=== PATIENT | female | born 1955 | race Caucasian/White ===

== ENCOUNTER → 2020-01-07 13:23 | Outpatient (BNVA) | payer MEDICARE, MEDICAID, SELFPAY | PROVIDERS: PCP Nurse Practitioner Family; Visit Provider Family Medicine Adult Medicine | DX: M96.1 Postlaminectomy syndrome, not elsewhere classified (principal); E83.42 Hypomagnesemia; Z79.891 Long term (current) use of opiate analgesic; Z98.1 Arthrodesis status; Q76.1 Klippel-Feil syndrome | CPT/HCPCS: 99214 ==

== ENCOUNTER → 2020-02-18 09:45 | Outpatient (BNVA) | payer MEDICARE, MEDICAID, SELFPAY | PROVIDERS: PCP Nurse Practitioner Family; Referring Provider Nurse Practitioner Family; Visit Provider Family Medicine Adult Medicine | DX: Q76.1 Klippel-Feil syndrome (principal); M96.1 Postlaminectomy syndrome, not elsewhere classified | CPT/HCPCS: 99212 ==

== ENCOUNTER → 2020-03-31 12:47 | Outpatient (BNVA) | payer MEDICARE, MEDICAID, SELFPAY | PROVIDERS: PCP Nurse Practitioner Family; Visit Provider Family Medicine Adult Medicine | DX: Z51.81 Encounter for therapeutic drug level monitoring (principal) | CPT/HCPCS: 99212 ==

== ENCOUNTER → 2020-04-26 12:45 | Outpatient (BNVA) | payer MEDICARE, MEDICAID, SELFPAY | PROVIDERS: PCP Nurse Practitioner Family; Visit Provider Nurse Practitioner Family | DX: M96.1 Postlaminectomy syndrome, not elsewhere classified (principal); Q76.1 Klippel-Feil syndrome | CPT/HCPCS: 99212 ==

== ENCOUNTER → 2020-05-30 12:55 | Outpatient (BNVA) | payer MEDICARE, MEDICAID, SELFPAY | PROVIDERS: PCP Nurse Practitioner Family; Visit Provider Nurse Practitioner Family | DX: M96.1 Postlaminectomy syndrome, not elsewhere classified (principal); Q76.1 Klippel-Feil syndrome | CPT/HCPCS: 99212 ==

== ENCOUNTER → 2020-06-28 10:21 | Outpatient (BNVA) | payer MEDICARE, MEDICAID, SELFPAY | PROVIDERS: PCP Nurse Practitioner Family; Visit Provider Family Medicine Adult Medicine | DX: M96.1 Postlaminectomy syndrome, not elsewhere classified (principal); Q76.1 Klippel-Feil syndrome | CPT/HCPCS: Q3014 ==

== ENCOUNTER → 2020-07-26 10:17 | Outpatient (BNVA) | payer MEDICARE, MEDICAID, SELFPAY | PROVIDERS: PCP Nurse Practitioner Family; Visit Provider Family Medicine Adult Medicine | DX: Q76.1 Klippel-Feil syndrome (principal); M96.1 Postlaminectomy syndrome, not elsewhere classified | CPT/HCPCS: 99212 ==

== ENCOUNTER → 2020-08-22 12:45 | Outpatient (BNVA) | payer MEDICARE, MEDICAID, SELFPAY | PROVIDERS: PCP Nurse Practitioner Family; Visit Provider Nurse Practitioner Family | DX: Z51.81 Encounter for therapeutic drug level monitoring (principal) | CPT/HCPCS: 99211 ==

== ENCOUNTER → 2020-09-20 11:12 | Outpatient (BNVA) | payer MEDICARE, MEDICAID, SELFPAY | PROVIDERS: PCP Nurse Practitioner Family; Visit Provider Family Medicine Adult Medicine | DX: Q76.1 Klippel-Feil syndrome (principal); M96.1 Postlaminectomy syndrome, not elsewhere classified | CPT/HCPCS: 99212 ==

== ENCOUNTER → 2020-10-20 11:04 | Outpatient (BNVA) | payer MEDICARE, MEDICAID, SELFPAY | PROVIDERS: PCP Nurse Practitioner Family; Visit Provider Family Medicine Adult Medicine | DX: Q76.1 Klippel-Feil syndrome (principal); M96.1 Postlaminectomy syndrome, not elsewhere classified | CPT/HCPCS: 99212 ==

== ENCOUNTER → 2020-11-18 14:10 | Outpatient (BNVA) | payer MEDICARE, MEDICAID, SELFPAY | PROVIDERS: PCP Nurse Practitioner Family; Visit Provider Nurse Practitioner Family | DX: M96.1 Postlaminectomy syndrome, not elsewhere classified (principal); Q76.1 Klippel-Feil syndrome; I10 Essential (primary) hypertension; E78.5 Hyperlipidemia, unspecified; E03.9 Hypothyroidism, unspecified; E83.42 Hypomagnesemia; Z88.0 Allergy status to penicillin; Z88.8 Allergy status to other drugs, medicaments and biological substances; Z79.899 Other long term (current) drug therapy | CPT/HCPCS: 99212 ==

== ENCOUNTER → 2020-12-08 12:53 | Outpatient (BNVA) | payer MEDICARE, MEDICAID, SELFPAY | PROVIDERS: PCP Nurse Practitioner Family; Visit Provider Family Medicine Adult Medicine | DX: Z51.81 Encounter for therapeutic drug level monitoring (principal) | CPT/HCPCS: 99211 ==

== ENCOUNTER → 2020-12-28 15:51 | Outpatient (BNVA) | payer MEDICARE, MEDICAID, SELFPAY | PROVIDERS: PCP Nurse Practitioner Family; Visit Provider Anesthesiology | DX: M96.1 Postlaminectomy syndrome, not elsewhere classified (principal); Q76.1 Klippel-Feil syndrome | CPT/HCPCS: 99212 ==

== ENCOUNTER → 2021-01-05 13:52 | Outpatient (BNVA) | payer MEDICARE, MEDICAID, SELFPAY | PROVIDERS: PCP Nurse Practitioner Family; Visit Provider Family Medicine Adult Medicine | DX: Q76.1 Klippel-Feil syndrome (principal); G89.4 Chronic pain syndrome; M96.1 Postlaminectomy syndrome, not elsewhere classified; I10 Essential (primary) hypertension; E78.5 Hyperlipidemia, unspecified; E03.9 Hypothyroidism, unspecified; E55.9 Vitamin D deficiency, unspecified; E66.9 Obesity, unspecified; Z68.24 Body mass index [BMI] 24.0-24.9, adult; Z96.642 Presence of left artificial hip joint; Z96.652 Presence of left artificial knee joint; Z88.0 Allergy status to penicillin; Z88.6 Allergy status to analgesic agent; Z88.1 Allergy status to other antibiotic agents; Z88.8 Allergy status to other drugs, medicaments and biological substances; Z79.891 Long term (current) use of opiate analgesic; Z79.899 Other long term (current) drug therapy | CPT/HCPCS: 99212 ==

== ENCOUNTER → 2021-02-02 11:23 | Outpatient (BNVA) | payer MEDICARE, MEDICAID, SELFPAY | PROVIDERS: PCP Nurse Practitioner Family; Visit Provider Family Medicine Adult Medicine | DX: Q76.1 Klippel-Feil syndrome (principal); M96.1 Postlaminectomy syndrome, not elsewhere classified; I10 Essential (primary) hypertension; E66.3 Overweight; F41.1 Generalized anxiety disorder; F32.A Depression, unspecified; Z88.0 Allergy status to penicillin; Z88.8 Allergy status to other drugs, medicaments and biological substances; Z79.899 Other long term (current) drug therapy | CPT/HCPCS: 99212 ==

== ENCOUNTER → 2021-03-07 11:18 | Outpatient (BNVA) | payer MEDICARE, MEDICAID, SELFPAY | PROVIDERS: PCP Nurse Practitioner Family; Visit Provider Family Medicine Adult Medicine | DX: Z51.81 Encounter for therapeutic drug level monitoring (principal); F11.20 Opioid dependence, uncomplicated | CPT/HCPCS: 99211 ==

== ENCOUNTER 2021-04-03 08:13 | Outpatient (REF) | payer MEDICARE, MEDICAID, SELFPAY | END 2021-04-03 08:14 | disposition home or self-care (01) | LOC: HO.LAB 08:13 | PROVIDERS: PCP Nurse Practitioner Family; Visit Provider Nurse Practitioner Family | DX: Q76.1 Klippel-Feil syndrome (principal); M96.1 Postlaminectomy syndrome, not elsewhere classified; G89.4 Chronic pain syndrome | CPT/HCPCS: 99212 ==

== ENCOUNTER 2021-04-25 06:09 | Outpatient (REF) | payer MEDICARE, MEDICAID, SELFPAY ==
--- NOTE | ~2021-04-25 | FL_ITS ---
EXAMINATION: XR FLUOROSCOPY WITH IMAGES CLINICAL INFORMATION: Post laminectomy syndrome. COMPARISON: None. TECHNIQUE: Fluoroscopy performed by Zaina Mcdaniel NP. Fluoroscopy time: 0.4 minutes DAP: 2.5 Gy-cm2 Images: 2 FINDINGS: Images demonstrate right-sided needle placement over the spinal canal at the L1-L2 level. FL/FL guidance in treatment room IMPRESSION: Fluoroscopy guidance for pain management procedure.
== END 2021-04-25 06:10 | disposition home or self-care (01) ==
LOC: HO.RADIR 06:09
PROVIDERS: Visit Provider Anesthesiology
DX: M96.1 Postlaminectomy syndrome, not elsewhere classified (principal); G89.4 Chronic pain syndrome
CPT/HCPCS: 62323; J1170; Q9967

== ENCOUNTER → 2021-05-02 11:15 | Outpatient (BNVA) | payer MEDICARE, MEDICAID, SELFPAY | PROVIDERS: PCP Nurse Practitioner Family; Visit Provider Nurse Practitioner Family | DX: Z51.81 Encounter for therapeutic drug level monitoring (principal); F11.20 Opioid dependence, uncomplicated; M96.1 Postlaminectomy syndrome, not elsewhere classified; Q76.1 Klippel-Feil syndrome; G89.4 Chronic pain syndrome | CPT/HCPCS: 99212 ==

== ENCOUNTER 2021-09-07 11:33 | Day surgery (SDC) | payer MEDICARE, MEDICAID, SELFPAY ==
[2021-08-31 09:00] VITALS: BMI 23.9
--- NOTE | 2021-09-06 10:21 | HO.ANESPROP2 ---
HPI - Anesthesia Eval Consult details Narrative: 65yo F for Intrathecal Drug Delivery Implant *Multiple Med Allergies* Chronic opioids Multiple spinal surgeries PMFSH Active Problems Active Problems: All Active Problems (Updated 12/28/20 @ 17:56 by Israel Garcia MD) Failed back syndrome, cervical (Acute) Chronic pain syndrome (Acute) Cervical fusion syndrome (Acute) Failed back syndrome, lumbar (Acute) Vitamin D deficiency (Acute) Hypomagnesemia (Acute) Hypothyroid (Acute) ADD (attention deficit disorder) (Acute) Generalized anxiety disorder (Acute) Major depression (Acute) Overweight (Acute) HTN (hypertension) (Acute) H/O cervical spinal arthrodesis (Acute) Past Medical History Medical History Cervical vertebral fusion Failed back syndrome of cervical spine Failed back syndrome, thoracic Hyperhidrosis Hyperlipidemia Surgical History Surgical History H/O carpal tunnel repair H/O ovarian cystectomy H/O spinal fusion History of appendectomy History of carpal tunnel release History of cholecystectomy History of left hip replacement History of left knee replacement History of total left hip replacement S/P cervical spinal fusion Status post lumbar spine operative procedure for decompression of spinal cord Social History Social History Household Members Other:: lives with daughter Are you a primary in home caregiver to a significant other at home: No Do you presently have visiting nurse or other home services: No Alcohol intake: never Patient Tobacco Use Status: Never used Tobacco Meds Allergies Allergy/AdvReac Type Severity Reaction Status Date / Time amitriptyline Allergy Severe VIOLENCE Verified 09/20/21 10:42 diazepam [Valium] Allergy Severe SUICIDAL Verified 09/20/21 10:42 lorazepam Allergy Severe suicidal Verified 09/20/21 10:42 Penicillins Allergy Severe hives Verified 09/20/21 10:42 amoxicillin [Augmentin] Allergy Intermediate hives Verified 09/20/21 10:42 clavulanic acid [Augmentin] Allergy Intermediate hives Verified 09/20/21 10:42 meperidine [Demerol] Allergy Intermediate vomiting Verified 09/20/21 10:42 buprenorphine [From [facility]] AdvReac Intermediate hives Verified 09/20/21 10:42 Home Medications Medication Instructions Recorded Confirmed Last Taken Type amlodipine 10 mg tablet 10 mg PO BEDTIME 01/07/20 08/31/21 Unknown History aripiprazole 2 mg tablet 2 mg PO BEDTIME 01/07/20 08/31/21 Unknown History buspirone 30 mg tablet 30 mg PO BEDTIME 01/07/20 08/31/21 Unknown History fluoxetine 20 mg capsule 80 mg PO BEDTIME 01/07/20 08/31/21 Unknown History gabapentin 600 mg tablet 900 mg PO QPM 01/07/20 08/31/21 Unknown History methylphenidate HCl 20 mg tablet 100 mg PO QPM 01/07/20 08/31/21 Unknown History thyroid (pork) 120 mg tablet 120 mg PO QAM 01/07/20 08/31/21 Unknown History clonidine HCl 0.1 mg tablet 1 tab PO Q8H PRN anxiety 08/31/21 08/31/21 Unknown History labetalol 100 mg tablet 1 tab PO BID 08/31/21 08/31/21 09/07/21 History omeprazole 20 mg capsule,delayed 1 cap PO DAILY 08/31/21 08/31/21 Unknown History release Exam Exam Date and Time: September 06, 2021 1021 Height,Weight and Vital Signs: Height 5 ft 2 in Weight 59.421 kg Assessment and Plan Assessment Anesthesia Assessment: Chart Reviewed
[2021-09-07] VITALS (7 sets, daily range): BP systolic 115–161; BP diastolic 78–107; PULSE 80–99; RESP 14–16; TEMP 35.8–37; O2SAT 94–99
--- NOTE | ~2021-09-07 | FL_ITS ---
EXAMINATION: XR FLUOROSCOPY WITH IMAGES CLINICAL INFORMATION: Intrathecal drug delivery implant. COMPARISON: None. TECHNIQUE: FLUOROSCOPY PERFORMED BY: Dr. Israel Garcia. FLUOROSCOPY TIME: 1.0 minutes DAP: 8.74 Gy-cm2 FLUOROSCOPIC IMAGES: 3 FINDINGS: 3 images demonstrate placement of an intrathecal catheter with its tip lying about the superior endplate of T10 FL/FL guidance in OR IMPRESSION: Intraoperative fluoroscopy provided for intrathecal drug delivery implant.
--- NOTE | 2021-09-07 12:23 | P.OP_ITS ---
Operative Note Operative Note Date of Service: 09/07/21 Narrative: After obtaining informed consent and explaining to the patient risks, benefits and alternatives to treat this patient's pain, she was brought up to the operating room where she was positioned supine on the stretcher.? [employer] monitors were applied and general anesthesia was induced with endotracheal intubation using Wallace scope.? After that the patient was transferred to the operating table in the prone positioon.? All pressure points were protected.? The patient received antibiotic Clindamycin 600 mg intravenously 30 minutes before incision. Time-out was performed delineating correct site and side of the procedure, name and date of of the patient, risk of fire, need for antibiotic prophylaxis risk of DVT and need for DVT prophylaxis. ? After that the patient entire back? and left upper buttock were prepped with Chloraprep and draped with full body drape including ioban film. Sterilely drape C-arm was brought over the OR field and square pictures of the L1, L2, L3 verteb victor m were demonstrated on the screen.? severe spondylosis was noted below L3 level. L5-S1 fusion was noted and posterior changes on the L3-L4 and L5 vertebra as were noted on lateral view. This left knee only option to go for intrathecal space at L1-L2 intervertebral space..the entrance point? for the catheter was chosen as the L1-L2 interspace? . Local anesthetic was injected into the skin and in the strict midline fashion 6.5 cm vertical skin incision was made with #10 scalpel. The incision was widened with the Weitlaner retractor and deepened with electrocautery. Thorough hemostasis was obtained using electrocautery. The prevertebral fascia was freed from overlaying tissues. After that 100 mm introducer spinal 16 g needle was incerted under x-ray guidance in the projection of the right L2 pedicle on AP view. The needle advanced under the x- ray guidance with intemittent A-P? and lateral pictures toward the spinal canal. When on the lateral view the needle entered the spinal canal the stylet was removed. However I was not able to detect any since infancy needle hub. Even gentle aspiration from the needle resulted in no CSF. The decision was made to attempt insertion at L2-L3 interval. Needle advancement at this interval was performed again on anterior posterior and lateral views on the right as well as on the left side in the projection of the upper margin of the L3 lamina. Unfortunately despite my best efforts anywhere I would go with my needle it will encounter bony formations. The decision was made to return to L1-L2 interspace and attempt the insertion of the needle at the left side of the lamina. The needle advancement was made under anterior posterior and lateral views. When tip of the needle was firmly resting at the center of the spinal canal on l ateral view stylet was removed and the needle was aspirated. Slightly tinged with blood CSF was slowly coming into the syringe. The decision was made to attempt advancement of the intrathecal catheter into the thoracic intrathecal space. Intrathecal Ascenda catheter was inserted through the needle and advanced under the x-ray guidance toward the T8 T9 intervertebral body interval projection The advancement of the catheter was made in the posterior intrathecal space.. The stylet was removed from the catheter and the flow of CSF fluid straw colored and clear was observed coming from the catheter.? Purse-string suture was applied surrounding? the a needle and it was tied.? After that the needle was withdrawn with care taken to keep the catheter in place.? Anchoring device was dislodged on the catheter and advanced until it met prevertebral fascia.? It was engaged on the body of the catheter.?One anchoring Tycron suture was used to suture left wing of the anchor to prevertebral fascia and 2 anchoring sutures Tycron was used to stitch in the right wing of anchoring device to prevertebral fascia. ?After that the thorough irrigation of the wound was performed and wound was packed with vancomycin soaked 4 x 4. Attention then was concentrated on the patient's rightupper buttock where she wanted to implant the body of the intrathecal pump..Sterilely draped C-arm was brought over the operative field again and position of the patient's ? left iliac crest was demonstrated on the screen.? 2 cm below the projection of the? left iliac crest? to the skin of the local anesthetic bupivacaine 0.75% was injected in the linear horizontal fashion.? After that 10? cm incision was performed in patient's? left upper buttock alongside the injected line. ? Thorough hemostasis was obtained using cautery device.? After that the wound was widened and made 3? cm deep .? The wound was extended medially and laterally as well as caudally and cranially to form the space to accommodate the body of the pump.? Thorough hemostasis was performed.? at 1 point severe bleeding was found in the medial corner of the wound and Surgicel was used to arrest capillary bleeding. with bleeding. The Surgicel was removed from the wound.The wound was irrigated with vancomycin containing normal saline and then tunneling device was used to connect both wounds and dislodged the intrathecal catheter into the side wound.? The catheter was trimmed appropriately after that and sutureless connection device was mounted on the catheter.? After that sutureless connection device was connected to the pump.? Aspiration of the side port of the pump revealed clear flow of CSF.? Two anchoring 1-0 Tycron sutures were applied in most SUPERIOR MEDIAL AND SUPERIOR LATERAL CORNERS OF THE WOUND .? After that the sutures were connected to the brackets on the body of the pump, intrathecal catheter was gathered behind the body of the pump and pump was dislodged into the wound.? After that the anchoring sutures were tied.? After that noncoring needle was used again to reach side port of the pump in clear flow of CSF 0.5 mL was demonstrated in the syringe connected to the noncoring needle. ? Thorough irrigation was performed again in both wounds.? Thorough hemostasis was verified.? 0 polisorb sutures were used to close both wounds, 2-0 suture of the same nature were used to approximate the skin.? Maria C were applied to the skin line and Bacitracin ointment was applied to the staple lines.? Sterile dressing with sterile 4x4s was performed, abdominal binder was applied.? Upon completion of the procedure patient was awaken extubated and taken outside of the operating room to recovery room where SHE recovered uneventfully.?
[2021-09-07] MEDS: Lactated Ringers 1,000 ML 100 ML IVCONT (12:36)
--- NOTE | 2021-09-07 13:03 | HO.ANESPROP2 ---
[facility] Active Problems Active Problems: All Active Problems (Updated 12/28/20 @ 17:56 by Israel Garcia MD) Failed back syndrome, cervical (Acute) Chronic pain syndrome (Acute) Cervical fusion syndrome (Acute) Failed back syndrome, lumbar (Acute) Vitamin D deficiency (Acute) Hypomagnesemia (Acute) Hypothyroid (Acute) ADD (attention deficit disorder) (Acute) Generalized anxiety disorder (Acute) Major depression (Acute) Overweight (Acute) HTN (hypertension) (Acute) H/O cervical spinal arthrodesis (Acute) Past Medical History Medical History Cervical vertebral fusion Failed back syndrome of cervical spine Failed back syndrome, thoracic Hyperhidrosis Hyperlipidemia Family History Family history of problems with anesthesia: No Surgical History Surgical History H/O carpal tunnel repair H/O ovarian cystectomy H/O spinal fusion History of appendectomy History of carpal tunnel release History of cholecystectomy History of left hip replacement History of left knee replacement History of total left hip replacement S/P cervical spinal fusion Status post lumbar spine operative procedure for decompression of spinal cord History of Problems with Anesthesia: No Social History Social History Household Members Other:: lives with daughter Are you a primary intensive care anaesthetist to a significant other at home: No Do you presently have visiting nurse or other home services: No Alcohol intake: never Patient Tobacco Use Status: Never used Tobacco Use of substances other than those prescribed or required for medical reasons: No Have you been hit, kicked, punched, or otherwise hurt by someone within the past year? If so, by whom?: No Are you DNR?: No Advance Directives: No Advance Directives Information Provided: Yes (brochure mailed) Advance Directives on File: No Recently lost weight without trying: No Eating poorly because of decreased appetite: No Nutrition Risks: No Nutritional Risk Meds Allergies Allergy/AdvReac Type Severity Reaction Status Date / Time amitriptyline Allergy Severe VIOLENCE Verified 08/31/21 08:44 diazepam [Valium] Allergy Severe SUICIDAL Verified 08/31/21 08:44 lorazepam Allergy Severe suicidal Verified 08/31/21 08:45 Penicillins Allergy Severe hives Verified 05/02/21 11:27 amoxicillin [Augmentin] Allergy Intermediate hives Verified 08/31/21 08:44 clavulanic acid [Augmentin] Allergy Intermediate hives Verified 08/31/21 08:44 meperidine [Demerol] Allergy Intermediate vomiting Verified 08/31/21 08:44 buprenorphine [From [facility]] AdvReac Intermediate hives Verified 05/02/21 11:27 Active Medications: Current Medications Fentanyl (Fentanyl Citrate/Pf 100 Mcg/2 Ml Vial) 25 mcg IVPUSH Q5M PRN; Protocol PRN Reason: Pain, Moderate (Pain Scale 4-6 Clindamycin Phosphate (Cleocin) 900 mg in 50 mls @ 50 mls/hr IV PREOP ONE Stop: 09/07/21 13:04 Lactated Ringer's (Lr) 1,000 mls @ 100 mls/hr IVCONT .Q10H CORIN Last Admin: 09/07/21 12:36 Dose: 100 mls/hr Ondansetron HCl (Ondansetron Hcl 4 Mg/2 Ml Vial) 4 mg IVPUSH ONCE PRN PRN Reason: Nausea and Vomiting Oxycodone HCl (Oxycodone Hcl Immed Release 5 Mg Tablet) 5 mg PO ONCE PRN PRN Reason: Pain, Severe (Pain Scale 7-10) Home Medications Medication Instructions Recorded Confirmed Last Taken Type amlodipine 10 mg tablet 10 mg PO BEDTIME 01/07/20 08/31/21 Unknown History aripiprazole 2 mg tablet 2 mg PO BEDTIME 01/07/20 08/31/21 Unknown History buspirone 30 mg tablet 30 mg PO BEDTIME 01/07/20 08/31/21 Unknown History fluoxetine 20 mg capsule 80 mg PO BEDTIME 01/07/20 08/31/21 Unknown History gabapentin 600 mg tablet 900 mg PO QPM 01/07/20 08/31/21 Unknown History methylphenidate HCl 20 mg tablet 100 mg PO QPM 01/07/20 08/31/21 Unknown History thyroid (pork) 120 mg tablet 120 mg PO QAM 01/07/20 08/31/21 Unknown History clonidine HCl 0.1 mg tablet 1 tab PO Q8H PRN anxiety 08/31/21 08/31/21 Unknown History labetalol 100 mg tablet 1 tab PO BID 08/31/21 08/31/21 09/07/21 History omeprazole 20 mg capsule,delayed 1 cap PO DAILY 08/31/21 08/31/21 Unknown History release Exam Exam Date and Time: September 07, 2021 1303 Height,Weight and Vital Signs: Height 5 ft 2 in Weight 59.421 kg Last Vital Signs Temp 96.4 F L 09/07/21 12:20 Pulse 80 09/07/21 12:20 Resp 16 09/07/21 12:20 BP 144/102 H 09/07/21 12:20 Pulse Ox 95 09/07/21 12:20 O2 Del Method 09/07/21 12:20 Airway Mallampati Class: IV TM Dist: >3cm Neck ROM: Limited Loose/Missing/Broken Teeth: No Heart: rrr Lungs: clear Assessment and Plan Final Anesthetic Review Family History of Problems with Anesthesia: No History of Problems with Anesthesia: No ASA Class: III Final Preanesthetic Review: No Changes in Pt Med Stat, Meds/Allgs Chart Reviewed, Consent Obtained/Reviewed and Anes Risks/Benef Reviewed Patient Risk: Intermediate Procedure Risk: Low Anesthetic Plan Anesthetic Plan: MAC: Disposition: Standard PACU
--- NOTE | 2021-09-07 13:13 | MHC.SHP ---
Pre-Procedural Eval Section A Date of Service: 09/07/21 The patient is an INPATIENT: No Changes since office visit: Yes Patient answered all questions The History & Physical has been completed within 30 days and I have reviewed it.: No Section B Chief Complaint: Klippel-Feil syndrome Details of Present Illness: as above Relevant Family History (Specify if Yes): No Relevant Social History: None Present Medications: see Short Stay Collaborative assessment Medical History: No relevant PMH History of Previous Operations: Relevant previous surgery/procedure and date(s) Allergies: Allergies Allergy/AdvReac Type Severity Reaction Status Date / Time amitriptyline Allergy Severe VIOLENCE Verified 08/31/21 08:44 diazepam [Valium] Allergy Severe SUICIDAL Verified 08/31/21 08:44 lorazepam Allergy Severe suicidal Verified 08/31/21 08:45 Penicillins Allergy Severe hives Verified 05/02/21 11:27 amoxicillin [Augmentin] Allergy Intermediate hives Verified 08/31/21 08:44 clavulanic acid [Augmentin] Allergy Intermediate hives Verified 08/31/21 08:44 meperidine [Demerol] Allergy Intermediate vomiting Verified 08/31/21 08:44 buprenorphine [From [facility]] AdvReac Intermediate hives Verified 05/02/21 11:27 Review of Systems Sugical H&P ROS: Negative: Constitution, Cardiovascular, Respiratory, Neurological, Psychiatric, Hem-Onc, Allergic/Immunologic, Gastrointestinal, Genitourinary, Musculoskeletal, Integumentary, Endocrine and Eyes/Ears/Nose/Throat Exam Surgical H&P Exam: Normal: HEENT, Normal: Heart, Normal: Lungs, Normal: Extremities, Normal: Abdomen, Normal: Skin and Normal: Neurological Plan Diagnosis/Plan: Unchanged I have reviewed the history and physical and performed a pertinent physical examination on my patient. No changes have occurred unless specified.
--- NOTE | 2021-09-07 16:57 | P.BOP_ITS ---
Brief Operative Note Date of Service: 09/07/21 Pre-op diagnosis: Postlaminectomy syndrome, Klippel-Feil syndrome Post-op diagnosis: same Procedure: implantation of intrathecal drug delivery system pain pump. Implants: SynchroMed 2 intrathecal pump connected to ascenda intrathecal catheter. Surgeon: Israel Garcia MD Anesthesia: GETA Was an Aerospace Project Engineer used for this Procedure?: No Estimated blood loss (mL): 30 Pathology: none sent Condition: stable Disposition: PACU
== END 2021-09-07 18:09 ==
LOC: HO.SSS 11:33
PROVIDERS: Visit Provider Anesthesiology
PROC: (CPT 62362; principal; 2021-09-07 13:20)
DX: M96.1 Postlaminectomy syndrome, not elsewhere classified (principal); Q76.1 Klippel-Feil syndrome; G89.4 Chronic pain syndrome; Z98.1 Arthrodesis status; F32.9 Major depressive disorder, single episode, unspecified; F98.8 Other specified behavioral and emotional disorders with onset usually occurring in childhood and adolescence; E55.9 Vitamin D deficiency, unspecified; E03.9 Hypothyroidism, unspecified; R61 Generalized hyperhidrosis; Z88.0 Allergy status to penicillin; Z88.1 Allergy status to other antibiotic agents; Z88.8 Allergy status to other drugs, medicaments and biological substances; Z96.642 Presence of left artificial hip joint; Z96.652 Presence of left artificial knee joint
CPT/HCPCS: 62362; C1755; C1772; J1100; J1170; J2250; J2370; J2405; J3010; J3370; Q9966

== ENCOUNTER → 2021-09-13 10:22 | Outpatient (BNVA) | payer MEDICARE, MEDICAID, SELFPAY | PROVIDERS: Visit Provider Anesthesiology | DX: M96.1 Postlaminectomy syndrome, not elsewhere classified (principal); Q76.1 Klippel-Feil syndrome; G89.4 Chronic pain syndrome | CPT/HCPCS: 99212 ==

== ENCOUNTER → 2021-09-20 10:22 | Outpatient (BNVA) | payer MEDICARE, MEDICAID, SELFPAY | PROVIDERS: Visit Provider Anesthesiology | DX: Z48.01 Encounter for change or removal of surgical wound dressing (principal); M96.1 Postlaminectomy syndrome, not elsewhere classified; G89.4 Chronic pain syndrome; Q76.1 Klippel-Feil syndrome | CPT/HCPCS: 99212 ==

== ENCOUNTER 2021-09-26 05:59 | Outpatient (REF) | payer MEDICARE, MEDICAID, SELFPAY | END 2021-09-26 06:00 | disposition home or self-care (01) | LOC: HO.RADIR 05:59 | PROVIDERS: Visit Provider Anesthesiology | DX: M96.1 Postlaminectomy syndrome, not elsewhere classified (principal); G89.4 Chronic pain syndrome; Q76.1 Klippel-Feil syndrome; Z46.89 Encounter for fitting and adjustment of other specified devices | CPT/HCPCS: 62370; 99212 ==

== ENCOUNTER → 2021-10-09 08:03 | Outpatient (BNVA) | payer MEDICARE, MEDICAID, SELFPAY | PROVIDERS: Visit Provider Anesthesiology | DX: Z45.1 Encounter for adjustment and management of infusion pump (principal); G89.4 Chronic pain syndrome; M96.1 Postlaminectomy syndrome, not elsewhere classified; Q76.1 Klippel-Feil syndrome | CPT/HCPCS: 99212 ==

== ENCOUNTER → 2021-10-23 08:00 | Outpatient (BNVA) | payer MEDICARE, MEDICAID, SELFPAY | PROVIDERS: Visit Provider Anesthesiology | DX: Z45.1 Encounter for adjustment and management of infusion pump (principal); M96.1 Postlaminectomy syndrome, not elsewhere classified; G89.4 Chronic pain syndrome; Q76.1 Klippel-Feil syndrome | CPT/HCPCS: 62370; 99212 ==

== ENCOUNTER → 2021-11-22 13:48 | Outpatient (BNVA) | payer MEDICARE, MEDICAID, SELFPAY | PROVIDERS: PCP Nurse Practitioner Family; Visit Provider Anesthesiology | DX: Z45.1 Encounter for adjustment and management of infusion pump (principal); G89.4 Chronic pain syndrome; M96.1 Postlaminectomy syndrome, not elsewhere classified; Q76.1 Klippel-Feil syndrome | CPT/HCPCS: 99212 ==

== ENCOUNTER → 2021-12-21 09:19 | Outpatient (BNVA) | payer MEDICARE, MEDICAID, SELFPAY | PROVIDERS: PCP Nurse Practitioner Family; Visit Provider Anesthesiology | DX: Z45.1 Encounter for adjustment and management of infusion pump (principal); G89.4 Chronic pain syndrome; M96.1 Postlaminectomy syndrome, not elsewhere classified; Q76.1 Klippel-Feil syndrome | CPT/HCPCS: 99212 ==

== ENCOUNTER → 2022-04-20 14:41 | Outpatient (BNVA) | payer MEDICARE, MEDICAID, SELFPAY | PROVIDERS: PCP Nurse Practitioner Family; Visit Provider Anesthesiology | DX: Z13.89 Encounter for screening for other disorder (principal) ==

== ENCOUNTER → 2022-05-09 08:00 | Outpatient (BNVA) | payer MEDICARE, MEDICAID, SELFPAY | PROVIDERS: PCP Nurse Practitioner Family; Visit Provider Anesthesiology | DX: Z45.1 Encounter for adjustment and management of infusion pump (principal); M96.1 Postlaminectomy syndrome, not elsewhere classified; G89.4 Chronic pain syndrome; Q76.1 Klippel-Feil syndrome | CPT/HCPCS: 99212 ==

== ENCOUNTER → 2022-06-07 10:22 | Outpatient (BNVA) | payer MEDICARE, MEDICAID, SELFPAY | PROVIDERS: PCP Nurse Practitioner Family; Visit Provider Anesthesiology | DX: M96.1 Postlaminectomy syndrome, not elsewhere classified (principal); M48.00 Spinal stenosis, site unspecified; Q76.1 Klippel-Feil syndrome; G89.4 Chronic pain syndrome | CPT/HCPCS: 99212 ==

== ENCOUNTER → 2022-06-29 13:25 | Outpatient (BNVA) | payer MEDICARE, MEDICAID, SELFPAY | PROVIDERS: PCP Nurse Practitioner Family; Visit Provider Physician Assistant | DX: M96.1 Postlaminectomy syndrome, not elsewhere classified (principal); M48.00 Spinal stenosis, site unspecified | CPT/HCPCS: 99202 ==

== ENCOUNTER 2022-07-24 10:35 | Outpatient (REF) | payer MEDICARE, MEDICAID, SELFPAY ==
--- NOTE | ~2022-07-24 | CT_ITS ---
EXAMINATION: CT LUMBAR SPINE WITHOUT CONTRAST CLINICAL INFORMATION: Post laminectomy syndrome. COMPARISON: Lumbar spine MRI 06/27/2022. TECHNIQUE: Helical non-contrast CT images were obtained through the lumbar spine without contrast. Multiplanar reformats were rendered and reviewed. This CT examination was performed using dose optimization techniques as appropriate, variously including the following: *Automated exposure control *Adjustment of mA and/or kV according to patient size (this includes techniques or standardized protocols for targeted exams where dose is matched to indication/reason for exam; i.e. extremities or head) *Use of iterative reconstruction technique DLP: 346 mGy-cm FINDINGS: There is grade 1 anterolisthesis of L2 on L3 with severe disc height loss. There is mild retrolisthesis of L4 on L5. There is grade 2 anterolisthesis of L5 on S1 with fusion across the L5-S1 disc space. There is ankylosis of the posterior elements from L4 to S1. There is mild leftward convex scoliotic curvature. Severe disc height loss is seen at L1-L2. There is a spinal catheter which enters the spinal canal at the L1-L2 level and extends cranially with tip not visualized. The pump is seen within the subcutaneous fat of the right-sided upper gluteal region. Atheromatous calcifications are seen within the abdominal aorta and its branch vessels. There are surgical clips in the gallbladder fossa. Fatty atrophy is noted in the posterior paraspinal musculature. SPINAL LEVELS: L1-L2: Disc bulging with osteophytic ridging and facet arthropathy bulging and mild to moderate spinal canal stenosis and narrowing the subarticular zones. Moderate right and mild left neural foraminal stenosis. L2-L3: Grade 1 anterolisthesis with unroofing of the disc and facet arthropathy resulting in severe spinal canal stenosis and moderate to severe bilateral neural foraminal stenosis. L3-L4: Laminectomy changes. No significant narrowing the spinal canal. Patent neural foramina. L4-L5: Laminectomy changes. No spinal canal stenosis. Mild narrowing of the left neural foramen. L5-S1: Grade 2 anterolisthesis. Significant distortion of the neural foramina with moderate stenosis on the left. Posterior decompression changes. CT/CT lumbar spine wo IV con IMPRESSION: 1. Postoperative findings related to posterior decompression at L3-L4 and L4-L5. 2. At L2-L3 there is grade 1 anterolisthesis and severe spinal canal stenosis and moderate to severe bilateral neural foraminal stenosis. 3. At L5-S1 there is grade 2 anterolisthesis with significant distortion of the neural foramina but no significant spinal canal stenosis.
== END 2022-07-24 10:36 | disposition home or self-care (01) ==
LOC: HO.CT 10:35
PROVIDERS: PCP Nurse Practitioner Family; Visit Provider Physician Assistant
DX: M96.1 Postlaminectomy syndrome, not elsewhere classified (principal)
CPT/HCPCS: 72131

== ENCOUNTER → 2022-07-30 10:56 | Outpatient (BNVA) | payer MEDICARE, MEDICAID, SELFPAY | PROVIDERS: PCP Nurse Practitioner Family; Visit Provider Anesthesiology | DX: M96.1 Postlaminectomy syndrome, not elsewhere classified (principal); M48.00 Spinal stenosis, site unspecified; G89.4 Chronic pain syndrome; Q76.1 Klippel-Feil syndrome | CPT/HCPCS: 99212 ==

== ENCOUNTER → 2022-08-01 12:47 | Outpatient (BNVA) | payer MEDICARE, MEDICAID, SELFPAY | PROVIDERS: PCP Nurse Practitioner Family; Visit Provider Neurological Surgery | DX: M43.16 Spondylolisthesis, lumbar region (principal) | CPT/HCPCS: 99212 ==

== ENCOUNTER 2022-08-02 14:23 | Inpatient (IN) | payer MEDICARE, MEDICAID, SELFPAY ==
--- NOTE | 2022-07-24 | ECG_ITS ---
Test Reason : preop Blood Pressure : / mmHG Vent. Rate : 070 BPM Atrial Rate : 070 BPM P-R Int : 156 ms QRS Dur : 082 ms QT Int : 422 ms P-R-T Axes : 000 020 013 degrees QTc Int : 455 ms Normal sinus rhythm Normal ECG No previous ECGs available Referred By: Vicki Means Electronically Signed By:LEVI RIVERA
[2022-07-24 13:54] VITALS: BP 169/102; PULSE 78; RESP 18; O2SAT 97; BMI 25.7
--- NOTE | 2022-07-24 14:11 | P.CONAN_ITS ---
Documented by User: Vicki Means NP 08/01/22 15:20 HPI - Anesthesia Eval Consult details Narrative: 66yo F for L2-3 Transkambin Lumbar Interbody Fusion, 08/06/22 Dilaudid intrathecal pump Right lower back - follows with Dr Garcia [facility] Active Problems Active Problems: All Active Problems (Updated 07/24/22 @ 13:42 by Nohemy Adams RN) Spinal stenosis (Acute) Failed back syndrome, cervical (Acute) Chronic pain syndrome (Acute) Cervical fusion syndrome (Acute) Failed back syndrome, lumbar (Acute) Vitamin D deficiency (Acute) Hypomagnesemia (Acute) Hypothyroid (Acute) ADD (attention deficit disorder) (Acute) Generalized anxiety disorder (Acute) Major depression (Acute) Overweight (Acute) HTN (hypertension) (Acute) H/O cervical spinal arthrodesis (Acute) Past Medical History Medical History (Updated 08/01/22 @ 13:50 by Keith Yin MD, PhD) ADD (attention deficit disorder) Asthma Cervical fusion syndrome Cervical vertebral fusion Chronic pain syndrome Depression Failed back syndrome of cervical spine Failed back syndrome, cervical Failed back syndrome, lumbar Failed back syndrome, thoracic Generalized anxiety disorder GERD (gastroesophageal reflux disease) HTN (hypertension) Hx of aluminum poisoning Hx of gastric ulcer Hyperhidrosis Hyperlipidemia Hypomagnesemia Hypothyroid Kidney stone Long QT syndrome Lupus Major depression Numbness Overweight Vitamin D deficiency Family History Family history of problems with anesthesia: No Surgical History Surgical History (Updated 07/24/22 @ 13:42 by Nohemy Adams RN) H/O carpal tunnel repair H/O cervical spinal arthrodesis H/O ovarian cystectomy H/O spinal fusion History of appendectomy History of arthroscopy of hip History of carpal tunnel release History of section History of cholecystectomy History of left hip replacement History of left knee replacement History of sphincterotomy of sphincter of Oddi History of total left hip replacement S/P cervical spinal fusion Status post lumbar spine operative procedure for decompression of spinal cord History of Problems with Anesthesia: No Social History Social History Household Members Other:: lives with daughter Are you a primary health care / medical job titles to a significant other at home: No Do you presently have visiting nurse or other home services: Yes ([employer]) Alcohol intake: never Patient Tobacco Use Status: Never used Tobacco Use of substances other than those prescribed or required for medical reasons: Yes Substance Use Frequency: Daily Have you been hit, kicked, punched, or otherwise hurt by someone within the past year? If so, by whom?: No Are you DNR?: No Advance Directives: No Advance Directives on File: No Recently lost weight without trying: No Eating poorly because of decreased appetite: No Nutrition Risks: No Nutritional Risk Patient : No Poor oral hygiene: Yes (bridge upper,) Narrative Narrative: Denies recent illness. No CP/SOB with minimal activity, limited to pain Meds Allergies Allergy/AdvReac Type Severity Reaction Status Date / Time amitriptyline Allergy Severe VIOLENCE Verified 07/30/22 11:08 diazepam [Valium] Allergy Severe SUICIDAL Verified 07/30/22 11:08 lorazepam Allergy Severe suicidal Verified 07/30/22 11:08 Penicillins Allergy Severe hives Verified 07/30/22 11:08 amoxicillin [Augmentin] Allergy Intermediate hives Verified 07/30/22 11:08 clavulanic acid [Augmentin] Allergy Intermediate hives Verified 07/30/22 11:08 meperidine [Demerol] Allergy Intermediate vomiting Verified 07/30/22 11:08 buprenorphine [From Bel[place]] AdvReac Intermediate hives Verified 07/30/22 11:08 bupivacaine AdvReac Involuntary Verified 07/30/22 11:08 Spasms Home Medications Medication Instructions Recorded Confirmed Last Taken Type amlodipine 10 mg tablet 10 mg PO BEDTIME 01/07/20 07/24/22 Unknown History aripiprazole 2 mg tablet 2 mg PO BEDTIME 01/07/20 07/24/22 Unknown History fluoxetine 20 mg capsule 80 mg PO BEDTIME 01/07/20 07/24/22 Unknown History gabapentin 600 mg tablet 600 mg PO TID 01/07/20 07/24/22 Unknown History labetalol 100 mg tablet 1 tab PO BID 08/31/21 07/24/22 09/07/21 History omeprazole 20 mg capsule,delayed 1 cap PO DAILY 08/31/21 07/24/22 Unknown History release buspirone 30 mg tablet 15 mg PO BEDTIME 05/09/22 07/24/22 Unknown History methylphenidate HCl 20 mg tablet 20 mg PO QID 05/09/22 07/24/22 Unknown History [place] Thyroid 120 mg PO 07/24/22 Unknown History linaclotide 145 mcg capsule 145 mcg PO DAILY 07/24/22 07/24/22 Unknown History (Linzess) loratadine 10 mg tablet 10 mg PO DAILY 07/24/22 07/24/22 Unknown History Exam Exam Date and Time: July 24, 2022 141 Height,Weight and Vital Signs: Height 5 ft 0.5 in Weight 60.781 kg Last Vital Signs Pulse 78 07/24/22 13:54 Resp 18 07/24/22 13:54 BP 169/102 H 07/24/22 13:54 Pulse Ox 97 07/24/22 13:54 O2 Del Method Room Air 07/24/22 13:54 Pertinent Lab Results Pertinent Lab Results: Lab Results 07/24/22 07/24/22 Range/Units 14:46 14:46 WBC 6.2 (4.8-10.8) X10*3/uL RBC 4.56 (4.20-5.50) X10*6/uL Hgb 12.7 (12.0-16.0) g/dl Hct 40.2 (37.0-47.0) % MCV 88.2 (80.0-98.0) fL MCH 27.9 (27.0-33.0) pg MCHC 31.6 (31.0-35.0) g/dl RDW 12.9 (11.0-16.0) % Plt Count 335 (160-400) X10*3/uL MPV 8.5 L (9.4-12.3) fL Absolute Nucleated RBC 0.000 (0.0-0.012) X10*3/uL Nucleated RBC % (auto) 0.0 (0.0-0.2) /100WBC Sodium 138 (135-145) mmol/L Potassium 4.4 (3.3-5.1) mmol/L Chloride 101 (96-108) mmol/L Carbon Dioxide 29 (22-29) mmol/L Anion Gap 12 (12-20) BUN 12 (9-16) mg/dL Creatinine 0.87 (0.5-1.4) mg/dL Estim Creat Clear Calc 52.4 Estimated GFR > 60 Random Glucose 85 (60-115) mg/dL Calcium 9.5 (8.4-10.2) mg/dL Magnesium 2.0 (1.6-2.6) mg/dL Narrative Narrative: EKG 07/2022 Vent. Rate : 070 BPM ? ? Atrial Rate : 070 BPM ?? P-R Int : 156 ms? QRS Dur : 082 ms ? ? QT Int : 422 ms ? ? ? P-R-T Axes : 000 020 013 degrees ?? QTc Int : 455 ms ? Normal sinus rhythm Normal ECG No previous ECGs available Airway Mallampati Class: II TM Dist: >3cm Neck ROM: Limited Loose/Missing/Broken Teeth: Yes (Permanent bridge on top, broken lower teeth d/t aluminum poisoning) Heart: RRR Lungs: CTAB Assessment and Plan Assessment Anesthesia Assessment: Anesthesia Plan Discussed and PAT Visit Final Anesthetic Review Family History of Problems with Anesthesia: No History of Problems with Anesthesia: No Documented by User: Usama Garay MD 08/06/22 07:19 [facility] Past Medical History Medical History (Updated 08/01/22 @ 13:50 by Keith Yin MD, PhD) ADD (attention deficit disorder) Asthma Cervical fusion syndrome Cervical vertebral fusion Chronic pain syndrome Depression Failed back syndrome of cervical spine Failed back syndrome, cervical Failed back syndrome, lumbar Failed back syndrome, thoracic Generalized anxiety disorder GERD (gastroesophageal reflux disease) HTN (hypertension) Hx of aluminum poisoning Hx of gastric ulcer Hyperhidrosis Hyperlipidemia Hypomagnesemia Hypothyroid Kidney stone Long QT syndrome Lupus Major depression Numbness Overweight Vitamin D deficiency Surgical History Surgical History (Updated 07/24/22 @ 13:42 by Nohemy Adams RN) H/O carpal tunnel repair H/O cervical spinal arthrodesis H/O ovarian cystectomy H/O spinal fusion History of appendectomy History of arthroscopy of hip History of carpal tunnel release History of section History of cholecystectomy History of left hip replacement History of left knee replacement History of sphincterotomy of sphincter of Oddi History of total left hip replacement S/P cervical spinal fusion Status post lumbar spine operative procedure for decompression of spinal cord Social History Social History Household Members Other:: lives with daughter Are you a primary health care / medical job titles to a significant other at home: No Do you presently have visiting nurse or other home services: Yes ([employer]) Alcohol intake: never Patient Tobacco Use Status: Never used Tobacco Use of substances other than those prescribed or required for medical reasons: Yes Substance Use Frequency: Daily Have you been hit, kicked, punched, or otherwise hurt by someone within the past year? If so, by whom?: No Are you DNR?: No Advance Directives: No Advance Directives on File: No Recently lost weight without trying: No Eating poorly because of decreased appetite: No Nutrition Risks: No Nutritional Risk Patient : No Poor oral hygiene: Yes (kristy upper,) Meds Allergies Allergy/AdvReac Type Severity Reaction Status Date / Time amitriptyline Allergy Severe VIOLENCE Verified 07/30/22 11:08 diazepam [Valium] Allergy Severe SUICIDAL Verified 07/30/22 11:08 lorazepam Allergy Severe suicidal Verified 07/30/22 11:08 Penicillins Allergy Severe hives Verified 07/30/22 11:08 amoxicillin [Augmentin] Allergy Intermediate hives Verified 07/30/22 11:08 clavulanic acid [Augmentin] Allergy Intermediate hives Verified 07/30/22 11:08 meperidine [Demerol] Allergy Intermediate vomiting Verified 07/30/22 11:08 buprenorphine [From [place]uca] AdvReac Intermediate hives Verified 07/30/22 11:08 bupivacaine AdvReac Involuntary Verified 07/30/22 11:08 Spasms Home Medications Medication Instructions Recorded Confirmed Last Taken Type amlodipine 10 mg tablet 10 mg PO BEDTIME 01/07/20 07/24/22 Unknown History aripiprazole 2 mg tablet 2 mg PO BEDTIME 01/07/20 07/24/22 Unknown History fluoxetine 20 mg capsule 80 mg PO BEDTIME 01/07/20 07/24/22 Unknown History gabapentin 600 mg tablet 600 mg PO TID 01/07/20 07/24/22 Unknown History labetalol 100 mg tablet 1 tab PO BID 08/31/21 07/24/22 09/07/21 History omeprazole 20 mg capsule,delayed 1 cap PO DAILY 08/31/21 07/24/22 Unknown History release buspirone 30 mg tablet 15 mg PO BEDTIME 05/09/22 07/24/22 Unknown History methylphenidate HCl 20 mg tablet 20 mg PO QID 05/09/22 07/24/22 Unknown History [place] Thyroid 120 mg PO 07/24/22 Unknown History linaclotide 145 mcg capsule 145 mcg PO DAILY 07/24/22 07/24/22 Unknown History (Linzess) loratadine 10 mg tablet 10 mg PO DAILY 07/24/22 07/24/22 Unknown History Assessment and Plan Final Anesthetic Review NPO: Yes ASA Class: III Final Preanesthetic Review: No Changes in Pt Med Stat, Meds/Allgs Chart Reviewed, Consent Obtained/Reviewed and Anes Risks/Benef Reviewed Patient Risk: Intermediate Procedure Risk: Intermediate Anesthetic Plan Anesthetic Plan: GA and Agree w/ Assess. and Plan Disposition: Standard PACU
[2022-07-24 14:55] LABS: Hematocrit 40.2 % (37.0-47.0); Hemoglobin 12.7 g/dl (12.0-16.0); Mean Corpuscular HGB Conc 31.6 g/dl (31.0-35.0); Mean Corpuscular Hemoglobin 27.9 pg (27.0-33.0); Mean Corpuscular Volume 88.2 fL (80.0-98.0); Mean Platelet Volume 8.5 fL (9.4-12.3); Platelet Count 335 X10*3/uL (160-400); Red Blood Count 4.56 X10*6/uL (4.20-5.50); Red Cell Distribution Width 12.9 % (11.0-16.0); White Blood Count 6.2 X10*3/uL (4.8-10.8)
[2022-07-24 15:27] LABS: Anion Gap 12 (12-20); Blood Urea Nitrogen 12 mg/dL (9-16); Calcium 9.5 mg/dL (8.4-10.2); Chloride 101 mmol/L (96-108); Creatinine Clr Calc Pharmacy 52.4; Estimated Glomerular Filt Rate > 60; Glucose Random 85 mg/dL (60-115); Potassium 4.4 mmol/L (3.3-5.1); Sodium 138 mmol/L (135-145)
[2022-07-24 15:32] LABS: Carbon Dioxide 29 mmol/L (22-29)
--- NOTE | ~2022-08-02 | FL_ITS ---
EXAMINATION: XR FLUOROSCOPY WITH IMAGES CLINICAL INFORMATION: Transkambin lumbar interbody fusion COMPARISON: None available. TECHNIQUE: Fluoroscopy Supervised By: Dr. Kiser 6. Fluoroscopy Time: 2.5 minutes. Cumulative Dose: 142.3 mGy. DAP: 2.346 Gycm2. Images: 5. FINDINGS: Initial digital image reveals a posterior probe at the L3-L4 disc level. There is grade 1 anterolisthesis L3 over L4. Subsequent images reveal L3-L4 disc prosthesis and bilateral pedicular L3-L4 screws with interconnecting rods for posterior fusion. FL/FL guidance in OR IMPRESSION: Fluoroscopy was provided to referring physician for L3-L4 posterior fusion with disc prosthesis and bilateral pedicular screws and interconnecting rods.
--- OUTSIDE RECORDS SUMMARY | 2022-08-02 14:30 | XMS_ITS | Continuity of Care Document ---
Author Name Unknown Organization [facility] Address [address] [place] [address]- Care Team Providers Care Filteration Operator Name Role Phone Kenneth CORBETT, Vicki Hay Primary Care Physician [place] [facility] [place]/11/20 - 08/18/20 [facility] [address] [place] [id number] Encounter Diagnosis ADHD(Discharge Diagnosis) - 08/11/20 Chronic back pain(Discharge Diagnosis) - 08/11/20 Depression(Discharge Diagnosis) - 08/11/20 GERD (gastroesophageal reflux disease)(Discharge Diagnosis) - 08/11/20 History of gastric ulcer(Discharge Diagnosis) - 08/11/20 Hypertension(Discharge Diagnosis) - 08/11/20 Hypothyroidism(Discharge Diagnosis) - 08/11/20 Lupus(Discharge Diagnosis) - 08/11/20 Attending Physician: Vicki Cooper NP Allergies, Adverse Reactions, Alerts Substance Reaction Severity Status lidocaine Active amitriptyline Violence risk Active penicillins Active tricyclic antidepressants Ac tive benzodiazepines Active Valium Suicidal Suicidal Active Augmentin Hives Active Adderall Elevated liver enzymes level Active Demerol HCl Active Bee Stings Active Other Food Allergy 1 Active 1oxalic acid Immunizations Given and Recorded Vaccine Date Status Refusal Reason SARS-CoV-2 (COVID-19) mRNA BNT-162b2 vac 1 07/15/20 Recorded SARS-CoV-2 (COVID-19) mRNA-1273 vaccine 06/17/20 R ecorded influenza virus vaccine, inactivated 2 02/09/20 Gi roger influenza virus vaccine, inactivated 12/12/18 Dima rded influenza virus vaccine, inactivated 12/18/17 Dima rded pneumococcal 23-valent vaccine 01/11/14 Recorded tetanus/diphtheria/pertussis, acel(Tdap) 08/09/11 Recorded 1Result Comment: [facility] [place] 2Result Comment: [facility]: [id number] Medications Abilify 2 mg oral tablet 2 mg, 1, tablet, By Mouth, Daily, # 30 tablet, Refills 0, Maintenance, 04/13/19 11:44:00 EST Start Date: 04/13/19 Status: Ordered amLODIPine 10 mg oral tablet 1 tablet, By Mouth, Daily, # 90 tablet, 3 Refills, Maintenance, 06/14/20 13:26:00 EDT, [id number], 153.5, cm, 02/09/20 13:38:00 EST, Height Start Date: 06/14/20 Status: Ordered busPIRone 15 mg oral tablet 1 tablet = 15 mg, By Mouth, 2 times a day, 0 Refills, Maintenance, 10/14/19 15:11:00 EDT Start Date: 10/14/19 Stop Date: 11/13/19 Status: Ordered Butrans 10 mcg/hr transdermal film, extended release 1 patch, Topically, 0 Refills, Maintenance, 04/23/19 9:51:00 EST Start Date: 04/23/19 Status: Ordered Claritin Tablet 1tab, By Mouth, 0, 0, 11/15/05 14:33:03, Print BART Number, Constant Indicator Start Date: 11/15/05 Status: Ordered gabapentin 600 mg oral tablet 1 tablet, By Mouth, 3 times a day, # 270 tablet, 3 Refills, Maintenance, 02/09/20 13:32:00 EST, [id number], 153.5, cm, 02/09/20 13:02:00 EST, Height Start Date: 02/09/20 Stop Date: 02/03/21 Status: Ordered labetalol 100 mg oral tablet 1 tablet = 100 mg, By Mouth, 2 times a day, # 180 tablet, 3 Refills, Maintenance, 07/13/19 11:44:00EDT, Tablet, [id number], 153.5, cm, 04/13/19 12:11:00 EST, Height Start Date: 07/13/19 Stop Date: 07/07/20 Status: Ordered Linzess 145 mcg oral capsule 1 capsule = 145 mcg, By Mouth, Daily, # 30 capsule, 0 Refills, Maintenance, 04/13/19 11:47:00 EST, Capsule Start Date: 04/13/19 Status: Ordered MS Contin 15 mg oral tablet, extended release 3 tablet = 45 mg, By Mouth, Every 8 hours, 0 Refills, Maintenance, 10/14/19 15:01:00 EDT, Partial fill upon patient request Start Date: 10/14/19 Status: Ordered STAFF TECHNOLOGIST Thyroid 120 mg oral tablet 1 tablet = 120 mg, By Mouth, Daily, 0 Refills, Maintenance, 04/13/19 11:47:00 EST Start Date: 04/13/19 Status: Ordered Prilosec 20 mg oral enteric coated capsule 20, mg, 1, capsule, By Mouth, 2 times a day, 0, 0, 11/15/05 14:25:32, Print BART Number, [id number], Constant Indicator Start Date: 11/15/05 Status: Ordered PROzac 20 mg oral capsule 80 mg, 4, capsule, By Mouth, Daily, Refills 0, Maintenance, 04/13/19 11:44:00 EST Start Date: 04/13/19 Status: Ordered Ritalin 20 mg oral tablet 20, mg, 1, tablet, By Mouth, 4 times a day, 0, 0, 11/15/05 14:25:06, Print BART Number, 65, ConstantIndicator Start Date: 11/15/05 Status: Ordered Problem List Condition Effective Dates Status Health Status Inform ant ADHD(Confirmed) Active Chronic back pain(Confirmed) Active Depression(Confirmed) Active GERD (gastroesophageal reflu x disease)(Confirmed) Active History of gastric ulcer(Confirmed) Active Hypertension(Confirmed) Active Hypothyroidism(Confirmed) Active Lupus(Confirmed) Active Diagnosis Diagnosis Type Effective Dates Health Status Clinical Service Informant ADHD Discharge Diagnosis 08/11/20 Chronic back pain Discharge Diagnosis 08/11/20 Depression Discharge Diagnosis 08/11/20 GERD (gastroesophageal reflux disease) Discharge Diagnosis 08/11/20 History of gastric ulcer Discharge Diagnosis 08/11/20 Hypertension Discharge Diagnosis 08/11/20 Hypothyroidism Discharge Diagnosis 08/11/20 Lupus Discharge Diagnosis 08/11/20 Vital Signs Most recent to oldest [Reference Range]: 1 2 Height 153.5 cm (08/11/20 2:10 PM) 153.5 cm (08/11/20 1:22 PM) Weight 61.4 kg (08/11/20 1:22 PM) Oxygen Saturation [94-100 %] 97 % (08/11/20 1:22 PM) Pulse Rate [55-90 bpm] 98 bpm *H* (08/11/20 1:22 PM) Body Mass Index [18.5-24.99] 26.06 *H* (08/11/20 1:22 PM) Blood Pressure [90-138/55-84 mm Hg] 96/7 0mm Hg (08/11/20 2:10 PM) 100/73mm Hg (08/11/20 1:22 PM) Mode of Delivery (Oxygen) Room air (08/11/20 1:22 PM) Blood pressure sites Arm, left (08/11/20 2:10 PM) Arm, left (08/11/20 1:22 PM) Weight Obtained Via Standing scale (08/11/20 1:22 PM) Social History Social History Type Response Smoking Status Never (less than 100 in lifetime) entered on: 04/13/19 Sex
--- OUTSIDE RECORDS SUMMARY | 2022-08-02 14:30 | XMS_ITS | Continuity of Care Document ---
Author Name Unknown Organization [facility] Adult Address [address] [place] [address]- Care Team Providers Care Journeyman Pressman Name Role Phone Kenneth CORBETT, Vicki Hay Primary Care Physician Encounter [facility] Date(s): 06/22/22 - 07/22/22 [facility] Adult [address] [place] [phone]- Attending Physician: Fran Swift Admitting Physician: AdmFran vance Referring Physician: Admtr, Fran Allergies, Adverse Reactions, Alerts Substance Reaction Severity Status lidocaine Active amitriptyline Violence risk Active penicillins Active tricyclic antidepressants Ac tive benzodiazepines Active Valium Suicidal Suicidal Active Augmentin Hives Active Adderall Elevated liver enzymes level Active Demerol HCl Active Bee Stings Active Other Food Allergy 1 Active 1oxalic acid Immunizations Given and Recorded Vaccine Date Status Refusal Reason [id number] bivalent booster vax 03/28/22 Recorded pneumococcal 13-valent vaccine 1 02/14/22 Given influenza virus vaccine, inactivated 01/02/22 Dima rded influenza virus vaccine, inactivated 2 02/13/21 Gi roger influenza virus vaccine, inactivated 3 02/09/20 Gi roger influenza virus vaccine, inactivated 12/12/18 Dima rded influenza virus vaccine, inactivated 12/18/17 Dima rded SARS-CoV-2 (COVID-19) mRNA-1273 vaccine 08/29/21 R ecorded SARS-CoV-2 (COVID-19) mRNA-1273 vaccine 03/06/21 R ecorded SARS-CoV-2 (COVID-19) mRNA-1273 vaccine 06/17/20 R ecorded SARS-CoV-2 (COVID-19) mRNA BNT-162b2 vac 4 07/15/20 Recorded pneumococcal 23-valent vaccine 10/27/14 Recorded tetanus/diphtheria/pertussis, acel(Tdap) 08/09/11 Recorded 1Result Comment: [facility] [place] [id number] 2Result Comment: [facility] [place] [id number] 3Result Comment: [facility] [place]: [id number] 4Result Comment: [facility] [place] Medications Abilify 2 mg oral tablet 2 mg, 1, tablet, By Mouth, Daily, # 30 tablet, Refills 0, Maintenance, 04/13/19 11:44:00 EST Start Date: 04/13/19 Status: Ordered amLODIPine 10 mg oral tablet 1 tablet, By Mouth, Daily, # 30 tablet, 2 Refills, Maintenance, 05/18/22 11:13:00 EST, [id number], 153.5, cm, 02/14/22 12:05:00 EST, Height Start Date: 05/18/22 Status: Ordered busPIRone 15 mg oral tablet 1 tablet = 15 mg, By Mouth, 2 times a day, 0 Refills, Maintenance, 10/14/19 15:11:00 EDT Start Date: 10/14/19 Stop Date: 11/13/19 Status: Ordered Claritin Tablet 1tab, By Mouth, 0, 0, 11/15/05 14:33:03, Print BART Number, Constant Indicator Start Date: 11/15/05 Status: Ordered gabapentin 600 mg oral tablet 1 tablet, By Mouth, 3 times a day, # 270 tablet, 3 Refills, Maintenance, 02/14/22 11:53:00 EST, [id number], 153.5, cm, 02/14/22 11:10:00 EST, Height Start Date: 02/14/22 Stop Date: 02/09/23 Status: Ordered labetalol 100 mg oral tablet 1 tablet, By Mouth, 2 times a day, # 60 tablet, 2 Refills, Maintenance, 05/18/22 11:14:00 EST, [id number], 153.5, cm, 02/14/22 12:05:00 EST, Height Start Date: 05/18/22 Status: Ordered Linzess 145 mcg oral capsule 1 capsule = 145 mcg, By Mouth, Daily, # 30 capsule, 0 Refills, Maintenance, 04/13/19 11:47:00 EST, Capsule Start Date: 04/13/19 Status: Ordered DIETARY MANAGER Thyroid 120 mg oral tablet 1 tablet = 120 mg, By Mouth, Daily, 0 Refills, Maintenance, 04/13/19 11:47:00 EST Start Date: 04/13/19 Status: Ordered omeprazole 20 mg oral enteric coated capsule 1 capsule = 20 mg, By Mouth, Daily, # 30 capsule, 0 Refills, Maintenance, 02/13/21 16:41:00 EST, Lesley, [facility]/pharmacy #[id number], Partial fill upon patient request if the prescription is for a schedule II opioid drug., 153.5, cm, 02/13/21 11:29:00 EST,... Start Date: 02/13/21 Stop Date: 03/15/21 Status: Ordered PROzac 20 mg oral capsule 80 mg, 4, capsule, By Mouth, Daily, Refills 0, Maintenance, 04/13/19 11:44:00 EST Start Date: 04/13/19 Status: Ordered Ritalin 20 mg oral tablet 20, mg, 1, tablet, By Mouth, 4 times a day, 0, 0, 11/15/05 14:25:06, Print BART Number, 65, ConstantIndicator Start Date: 11/15/05 Status: Ordered Problem List Condition Confirmation Course Effective Dates Status H ealth Status Informant ADHD Confirmed Active Chronic back pain Confirmed Active Depression Confirmed Active GERD (gastroesophageal reflux disease) Confirmed Active History of gastric ulcer Confirmed Active Hypertension Confirmed Active Hypothyroidism Confirmed Active Lupus Confirmed Active Social History Social History Type Response Smoking Status Never (less than 100 in lifetime) entered on: 04/13/19 Sex Laboratory * Event Display: Non Lab Results Authored Date: Radiology * Event Display: X-Ray Spine, Non- BH Authored Date: * Event Display: X-Ray Pelvis, Non- Authored Date: * Event Display: MRI Abdomen, Non- Authored Date: * Event Display: X-Ray Pelvis, Non- BH Authored Date: * Event Display: CT Scan Spine, Non- BH Authored Date: * Event Display: MRI Spine, Non- BH Authored Date: * Event Display: MRI Spine, Non- BH Authored Date: * Event Display: MRI Spine, Non- BH Authored Date: * Event Display: X-Ray Spine, Non- BH Authored Date: * Event Display: X-Ray Pelvis, Non- BH Authored Date: * Event Display: X-Ray Spine, Non- BH Authored Date: * Event Display: CT Scan Abdomen, Non- BH Authored Date: * Event Display: [place] Nuclear Medicine, Non- Authored Date: MR Pelvis * Event Display: MRI Pelvis Authored Date: Patient Care team information Care Team Personnel Name: Kenneth CORBETT, Vicki Hay Position: S PCO Associate Professional Member Role: PCP Address: Address: [address] [place] [address] [address] [place] [address]- Care Team Related Persons Name: BE GALVEZ Address: home [address] [place] [address] Name: ECTOR HARVEY Address: home [address] [place] [address]
--- OUTSIDE RECORDS SUMMARY | 2022-08-02 14:30 | XMS_ITS | Continuity of Care Document ---
Author Name Unknown Organization [facility] Adult Address [address] [place] [address]- Care Team Providers Care Vice President Of Compliance Name Role Phone Kenneth CORBETT, Vicki Hay Primary Care Physician Encounter [facility] [place] Date(s): 10/14/19 - 10/21/19 [facility] Adult [address] [place] [phone]- [facility] Encounter Diagnosis Chronic back pain(Discharge Diagnosis) - 10/14/19 Depression(Discharge Diagnosis) - 10/14/19 GERD (gastroesophageal reflux disease)(Discharge Diagnosis) - 10/14/19 History of gastric ulcer(Discharge Diagnosis) - 10/14/19 Hypertension(Discharge Diagnosis) - 10/14/19 Hypothyroidism(Discharge Diagnosis) - 10/14/19 Lupus(Discharge Diagnosis) - 10/14/19 Attending Physician: Vicki Cooper NP Referring Physician: Agnes Lao MD Allergies, Adverse Reactions, Alerts Substance Reaction Severity Status lidocaine Active amitriptyline Violence risk Active penicillins Active tricyclic antidepressants Ac tive benzodiazepines Active Valium Suicidal Suicidal Active Augmentin Hives Active Adderall Elevated liver enzymes level Active Demerol HCl Active Bee Stings Active Other Food Allergy 1 Active 1oxalic acid Immunizations Given and Recorded Vaccine Date Status Refusal Reason pneumococcal 23-valent vaccine 01/11/14 Recorded tetanus/diphtheria/pertussis, acel(Tdap) 08/09/11 Recorded Medications Abilify 2 mg oral tablet 2 mg, 1, tablet, By Mouth, Daily, # 30 tablet, Refills 0, Maintenance, 04/13/19 11:44:00 EST Start Date: 04/13/19 Status: Ordered amLODIPine 10 mg oral tablet 10 mg, 1, tablet, By Mouth, Daily, # 90 tablet, Refills 3, Tot. Refills 3, Maintenance, 07/13/19 11:43:00 EDT, Route to Pharmacy Electronically, [facility]/pharmacy #[id number], 153.5, cm, 04/13/19 12:11:00 EST, Height Start Date: 07/13/19 Stop Date: 07/07/20 Status: Ordered busPIRone 15 mg oral tablet [...] Ordered gabapentin 600 mg oral tablet 1 tablet = 600 mg, By Mouth, 3 times a day, # 90 tablet, 0 Refills, Maintenance, 04/23/19 9:51:00 EST, Tablet Start Date: 04/23/19 Stop Date: 07/22/19 Status: Ordered labetalol 100 mg oral tablet 1 tablet = 100 mg, By Mouth, 2 times a day, # 180 tablet, 3 Refills, Maintenance, 07/13/19 11:44:00EDT, Tablet, [facility]/pharmacy #[id number], 153.5, cm, 04/13/19 12:11:00 EST, Height [...] patient request Start Date: 10/14/19 Status: Ordered COSMETICS MACHINE OPERATOR Thyroid 120 mg oral tablet 1 tablet = 120 mg, By Mouth, Daily, 0 Refills, Maintenance, 04/13/19 11:47:00 EST Start Date: 04/13/19 Status: Ordered Prilosec 20 mg oral enteric coated capsule 20, mg, 1, capsule, By Mouth, 2 times a day, 0, 0, 11/15/05 14:25:32, Print BART Number, [id number], Constant Indicator Start Date: 11/15/05 Status: Ordered [...] Effective Dates Health Status Clinical Service Informant Chronic back pain Discharge Diagnosis 10/14/19 Depression Discharge Diagnosis 10/14/19 GERD (gastroesophageal reflux disease) Discharge Diagnosis 10/14/19 History of gastric ulcer Discharge Diagnosis 10/14/19 Hypertension Discharge Diagnosis 10/14/19 Hypothyroidism Discharge Diagnosis 10/14/19 Lupus Discharge Diagnosis 10/14/19 Vital Signs Most recent to oldest [Reference Range]: 1 2 Height 153.5 cm (10/14/19 3:19 PM) 153.5 cm (10/14/19 2:43 PM) Weight 63.7 kg (10/14/19 2:43 PM) Oxygen Saturation [94-100 %] 97 % (10/14/19 2:43 PM) Pulse Rate [55-90 bpm] 98 bpm *H* (10/14/19 2:43 PM) Body Mass Index [18.5-24.99] 27.03 *H* (10/14/19 2:43 PM) Blood Pressure [90-138/55-84 mm Hg] 118/ 88mm Hg (10/14/19 3:19 PM) 110/70mm Hg (10/14/19 2:43 PM) Blood pressure sites Arm, left (10/14/19 3:19 PM) Arm, left (10/14/19 2:43 PM) Social History Social History Type Response Smoking Status Never (less than 100 in lifetime) entered on: 04/13/19 Sex
--- OUTSIDE RECORDS SUMMARY | 2022-08-02 14:31 | XMS_ITS | Continuity of Care Document ---
Author Name Unknown Organization [facility] Adult Address [address] [place] [address]- Care Team Providers Care Quartz Miner Name Role Phone Kenneth CORBETT, Vicki Hay Primary Care Physician Encounter [facility] [place] Date(s): 11/27/19 - 12/27/19 [facility] Adult [address] [place] [phone] [facility] Allergies, Adverse Reactions, Alerts Substance Reaction Severity [...] 07/13/19 11:43:00 EDT, Route to Pharmacy Electronically, [facility]/pharmacy #[id number], 153.5, cm, 04/13/19 12:11:00 EST, Height [...] day, # 90 tablet, 0 Refills, Maintenance, 11/27/19 16:35:00 EDT, Tablet, [facility]/pharmacy #[id number], 153.5, cm, 10/14/19 15:19:00 EDT, Height Start Date: 11/27/19 Status: Ordered labetalol 100 mg oral tablet 1 tablet = 100 mg, By Mouth, 2 times a day, # 180 tablet, 3 Refills, Maintenance, 07/13/19 11:44:00EDT, Tablet, [facility]/pharmacy #[id number], 153.5, cm, 04/13/19 12:11:00 EST, Height [...] patient request Start Date: 10/14/19 Status: Ordered DRESSMAKER GARMENT FITTER Thyroid 120 mg oral tablet 1 tablet = 120 mg, By Mouth, Daily, 0 Refills, Maintenance, 04/13/19 11:47:00 EST Start Date: 04/13/19 Status: Ordered Prilosec 20 mg oral enteric coated capsule 20, mg, 1, capsule, By Mouth, 2 times a day, 0, 0, 11/15/05 14:25:32, Print BART Number, [id number], Constant Indicator Start Date: 11/15/05 Status: Ordered [...] Active Hypertension(Confirmed) Active Hypothyroidism(Confirmed) Active Lupus(Confirmed) Active Social History Social History Type Response Smoking Status Never (less than 100 in lifetime) entered on: 04/13/19 Sex
--- OUTSIDE RECORDS SUMMARY | 2022-08-02 14:31 | XMS_ITS | Continuity of Care Document ---
Author Name Unknown Organization [facility] Adult Address [address] [place] [address]- Care Team Providers Care Marketing Development Representative Name Role Phone Kenneth CORBETT, Vicki Hay Primary Care Physician Encounter [facility] Date(s): 06/22/22 - 06/29/22 [facility] Adult [address] [place] [phone]- Encounter Diagnosis Chronic back pain(Discharge Diagnosis) - 06/22/22 Chronic neck pain(Discharge Diagnosis) - 06/22/22 Attending Physician: Vicki Cooper NP Allergies, Adverse Reactions, Alerts Substance Reaction Severity Status lidocaine Active amitriptyline Violence risk Active penicillins Active benzodiazepines Active Other Food Allergy 1 Active tricyclic antidepressants Ac tive Valium Suicidal Suicidal Active Augmentin Hives Active Adderall Elevated liver enzymes level Active Demerol HCl Active Bee Stings Active 1oxalic acid Immunizations Given and Recorded Vaccine Date Status Refusal Reason [id number] bivalent booster vax 03/28/22 Recorded pneumococcal 13-valent [...] Recorded tetanus/diphtheria/pertussis, acel(Tdap) 08/09/11 Recorded 1Result Comment: [facility]# [id number] 2Result Comment: [facility]# [id number] 3Result Comment: [facility]: [id number] 4Result Comment: [facility] [place] Medications Abilify 2 mg oral tablet 2 mg, 1, tablet, By Mouth, Daily, # 30 tablet, Refills 0, Maintenance, 04/13/19 11:44:00 EST Start Date: 04/13/19 Status: Ordered amLODIPine 10 mg oral tablet 1 tablet, By Mouth, Daily, # 30 tablet, 2 Refills, Maintenance, 05/18/22 11:13:00 EST, [id number], 153.5, cm, 02/14/22 12:05:00 EST, Height Start [...] Refills, Maintenance, 05/18/22 11:14:00 EST, [id number], 153.5, cm, 02/14/22 12:05:00 EST, Height Start Date: 05/18/22 Status: Ordered Linzess 145 mcg oral capsule 1 capsule = 145 mcg, By Mouth, Daily, # 30 capsule, 0 Refills, Maintenance, 04/13/19 11:47:00 EST, Capsule Start Date: 04/13/19 Status: Ordered RETAIL SALES REPRESENTATIVE Thyroid 120 mg oral tablet 1 tablet = 120 mg, By Mouth, Daily, 0 Refills, Maintenance, 04/13/19 11:47:00 EST Start Date: 04/13/19 Status: Ordered omeprazole 20 mg oral enteric coated capsule 1 capsule = 20 mg, By Mouth, Daily, # 30 capsule, 0 Refills, Maintenance, 02/13/21 16:41:00 EST, Lesley, [facility]/pharmacy #[id number], Partial fill upon patient request if the [...] Active Hypothyroidism Confirmed Active Lupus Confirmed Active Diagnosis Diagnosis Type Effective Dates Health Status inical Service Informant Chronic back pain Discharge Diagnosis 06/22/22 Chronic neck pain Discharge Diagnosis 06/22/22 Vital Signs Most recent to oldest [Reference Range]: 1 Height 153.5 cm (06/22/22 9:36 AM) Weight 60 kg (06/22/22 9:36 AM) Oxygen Saturation [94-100 %] 97 % (06/22/22 9:36 AM) Pulse Rate [55-90 bpm] 100 bpm *H* (06/22/22 9:36 AM) Body Mass Index [18.5-24.99 kg/m2] 25.46 kg/m2 *H* (06/22/22 9:36 AM) Blood Pressure [90-138/55-84 mm Hg] 133/ 94mm Hg (06/22/22 9:36 AM) Respiratory Rate [16-30 br/min] 18 br/mi n (06/22/22 9:36 AM) Temperature [96.8-100.4 DegF] 98.9 DegF (06/22/22 9:36 AM) Mode of Delivery (Oxygen) Room air (06/22/22 9:36 AM) Blood pressure sites Arm, right (06/22/22 9:36 AM) Temperature Route Temporal (06/22/22 9:36 AM) Weight Obtained Via Standing scale (06/22/22 9:36 AM) Social History Social History Type Response Smoking Status Never (less than 100 in lifetime) entered on: 04/13/19 Sex Note * Yoly Krishnamurthy: PERFORM, SIGN, VERIFY Event Display: Patient Education/Instruction Authored Date: [id number] [facility] Clinical Summary Name DARRELL HARVEY Age 66 Years 1955 PCP Kenneth RETAIL SALES REPRESENTATIVE, Vicki Hay PCP Visit Date 06/22/2022 09:19:00 Additional Instructions: Scheduled Appointments?? Future Appointments ?No Future Appointments Scheduled Follow-Up Instructions ?? Diagnosis Dorsalgia, unspecified; Cervicalgia Medications: Please continue your medications until treatment is completed or stopped by your provider. Discuss any questions related to medications with your provider. Medications to Continue with No Changes These medications were not printed or sent to your pharmacy Amlodipine (amLODIPine 10 mg oral tablet) 1 tab(s) Oral Daily. Refills: 2. Next Dose: Aripiprazole (Abilify 2 mg oral tablet) 1 tab(s) Oral Daily. Next Dose: BusPIRone (busPIRone 15 mg oral tablet) 1 tab(s) Oral twice a day for 30 Days. Next Dose: Fluoxetine (PROzac 20 mg oral capsule) 4 capsule Oral Daily. Next Dose: Gabapentin (gabapentin 600 mg oral tablet) 1 tab(s) Oral 3 times a day for 90 Days. Refills: 3. Next Dose: Labetalol (labetalol 100 mg oral tablet) 1 tab(s) Oral twice a day. Refills: 2. Next Dose: linaclotide (Linzess 145 mcg oral capsule) 1 capsule Oral Daily. Next Dose: Loratadine (Claritin Tablet) 1tab Oral. Next Dose: Methylphenidate (Ritalin 20 mg oral tablet) 1 tab(s) Oral 4 times a day. Next Dose: Omeprazole (omeprazole 20 mg oral enteric coated capsule) 1 capsule Oral Daily for 30 Days. Refills: 0. Next Dose: Thyroid Desiccated (RETAIL SALES REPRESENTATIVE Thyroid 120 mg oral tablet) 1 tab(s) Oral Daily. Next Dose: Allergy Info:?? Other Food Allergy; Bee Stings; Demerol HCl; Adderall; Augmentin; Valium; benzodiazepines; tricyclic antidepressants; penicillins; amitriptyline; lidocaine Medications Given This Visit Future Orders ?Cervical Spine 4 or 5 Views? Order Date:06/22/22?- Complete on or after?06/22/22 ?Lumbar Spine 2 or 3 Views? Order Date:06/22/22?- Complete on or after?06/22/22 Vital Signs Height 153.5 cm Weight 60 kg BMI 25.46 kg/m2 Blood Pressure 133 mm Hg/94 mm Hg Temperature 98.9 DegF Pulse Rate 100 bpm Respiratory Rate 18 br/min 02 Sat Mode of Delivery 97 %/Room air You can now view a summary of your hospital visit from the comfort of your home through a free online portal called [employer]. [employer] is a website that allows you to securely view your medical information including discharge summary, medications and follow-up visits. ??You can alsosend a secure electronic message to your doctor???s office to request appointments, renew medications or just ask a question. You can enroll at [email or web address] or register during your next office visit. Disclaimer:?? The information provided is of a general nature and is intended to be used in conjunction with the recommendations and advice of your health care practitioner. ??Every effort has been made to ensure that the information provided is accurate and complete at the time it is provided to you however, as your needs change, or, as new ??information becomes available, different or additional instructions may be required. If you have questions, please consult with your primary care provider or pharmacist, as appropriate. ??This information is not intended to serve as substitution for assessment and evaluation by a qualified health care provider. If you do not have a primary care provider, you may find a [facility] provider by calling [email or web address] Link at [phone]. For information about the plan of care including goals and instructions for your diagnosis, please see the patient education orders section of this document. Patient Education Materials?? The content of this educational material or handout may have been modified, supplemented, or adapted from its original content and format to support your individualized medical care. Patient Care team information Care Team Personnel Name: Vicki Cooper NP Position: S PCO Associate Professional Member Role: PCP Address: Address: [address] [place] [address] [address] [place] [address]- Care Team Related Persons Name: BE GALVEZ Address: [address] [place] [address] Name: ECTOR HARVEY Address: home [address] [place] [address]
--- OUTSIDE RECORDS SUMMARY | 2022-08-02 14:31 | XMS_ITS | Continuity of Care Document ---
Author Name Unknown Organization [facility] Adult Address [address] [place] [address]- Care Team Providers Care Carbider Name Role Phone Vicki Cooper NP [facility] Phys[id number] Date[facility]20[facility] [address] [place] [phone] [facility] Encounter Diagnosis Chronic back pain(Discharge Diagnosis) - 04/13/19 ADHD(Discharge Diagnosis) - 04/13/19 Hypertension(Discharge Diagnosis) - 04/13/19 Anxiety and depression(Discharge Diagnosis) - 04/13/19 Hypothyroidism(Discharge Diagnosis) - 04/13/19 Arthritis(Discharge Diagnosis) - 04/13/19 Attending Physician: [facility], [facility] Allergies, Adverse Reactions, Alerts Substance Reaction Severity Status penicillins Active tricyclic antidepressants Ac tive benzodiazepines Active Adderall Elevated liver enzymes level Active Demerol HCl Active Bee Stings Active Other Food Allergy 1 Active 1oxalic acid Medications Abilify 2 mg oral tablet 2 mg, 1, tablet, By Mouth, Daily, # 30 tablet, Refills 0, Maintenance, 04/13/19 11:44:00 EST Start Date: 04/13/19 Status: Ordered amLODIPine 10 mg oral tablet 10 mg, 1, tablet, By Mouth, Daily, # 30 tablet, Refills 0, Maintenance, 04/13/19 11:45:00 EST Start Date: 04/13/19 Status: Ordered busPIRone 30 mg oral tablet 1 tablet = 30 mg, By Mouth, 2 times a day, # 60 tablet, 0 Refills, Maintenance, 04/13/19 11:48:00 EST, Tablet Start Date: 04/13/19 Status: Ordered Claritin Tablet 1tab, By Mouth, 0, 0, 11/15/05 14:33:03, Print BART Number, Constant Indicator Start Date: 11/15/05 Status: Ordered labetalol 100 mg oral tablet See Instructions, 1-3 per day, 0 Refills, Maintenance, 04/13/19 11:45:00 EST Start Date: 04/13/19 Status: Ordered Linzess 145 mcg oral capsule 1 capsule = 145 mcg, By Mouth, Daily, # 30 capsule, 0 Refills, Maintenance, 04/13/19 11:47:00 EST, Capsule Start Date: 04/13/19 Status: Ordered MS Contin 30 mg oral tablet, extended release 1 tablet = 30 mg, By Mouth, Every 12 hours, 0 Refills, Maintenance, 04/13/19 11:46:00 EST, Partial fill upon patient request Start Date: 04/13/19 Status: Ordered Neurontin 300 mg oral capsule 300, mg, 1, capsule, By Mouth, 3 times a day, 0, 0, 11/15/05 14:27:19, Print BART Number, 68, Constant Indicator Start Date: 11/15/05 Status: Ordered SEMICONDUCTOR LAB TECHNICIAN Thyroid 120 mg oral tablet 1 tablet = 120 mg, By Mouth, Daily, 0 Refills, Maintenance, 04/13/19 11:47:00 EST Start Date: 04/13/19 Status: Ordered Prilosec 20 mg oral enteric coated capsule 20, mg, 1, capsule, By Mouth, 2 times a day, 0, 0, 11/15/05 14:25:32, Print BART Number, [id number], Constant Indicator Start Date: 11/15/05 Status: Ordered [...] ant ADHD(Confirmed) Active Chronic back pain(Confirmed) Active Hypertension(Confirmed) Active Diagnosis Diagnosis Type Effective Dates Health Status Clinical Service Informant Chronic back pain Discharge Diagnosis 04/13/19 ADHD Discharge Diagnosis 04/13/19 Hypertension Discharge Diagnosis 04/13/19 Anxiety and depression Discharge Diagnosis 04/13/19 Hypothyroidism Discharge Diagnosis 04/13/19 Arthritis Discharge Diagnosis 04/13/19 Procedures Procedure Date Related Diagnosis Body Site Status Carpal tunnel Completed Cervical fusion syndrome Completed delivery Complet ed Cholecystectomy Completed Left hip Completed Left knee Completed Spondylolysis Completed Vital Signs Most recent to oldest [Reference Range]: 1 2 3 Height 153.5 cm (04/13/19 12:11 PM) 153.5 cm (04/13/19 11:32 AM) 153.5 cm (04/13/19 11:22 AM) Weight 65.6 kg (04/13/19 11:22 AM) Oxygen Saturation [94-100 %] 93 % *L* (04/13/19 11:22 AM) Pulse Rate [55-90 bpm] 97 bpm *H* (04/13/19 11:22 AM) Body Mass Index [18.5-24.99] 27.84 *H* (04/13/19 11:22 AM) Blood Pressure [90-138/55-84 mm Hg] 138/88mm Hg (04/13/19 12:11 PM) 136/100mm Hg (04/13/19 11:32 AM) 144/118mm Hg *H* (04/13/19 11:22 AM) Temperature [96.8-100.4 DegF] 98.2 DegF (04/13/19 11:22 AM) Mode of Delivery (Oxygen) Room air (04/13/19 11:22 AM) Blood pressure sites Leg, left (04/13/19 12:11 PM) Arm, right (04/13/19 11:32 AM) Arm, left (04/13/19 11:22 AM) Temperature Route Oral (04/13/19 11:22 AM) Weight Obtained Via Standing scale (04/13/19 11:22 AM) Social History Social History Type Response Smoking Status Never (less than 100 in lifetime) entered on: 04/13/19 Sex
--- OUTSIDE RECORDS SUMMARY | 2022-08-02 14:31 | XMS_ITS | Continuity of Care Document ---
Author Name Unknown Organization [facility] Adult Address [address] [place] [address]- Care Team Providers Care Store Loss Prevention Manager Name Role Phone Kenneth CORBETT, Vicki Hay Primary Care Physician Encounter [facility] [place] Date(s): 02/13/21 - 02/20/[address] [facility] Adult [address] [place] [id number]- Encounter Diagnosis Physical exam(Discharge Diagnosis) - 02/13/21 ADHD(Discharge Diagnosis) - 02/13/21 Chronic back pain(Discharge Diagnosis) - 02/13/21 Depression(Discharge Diagnosis) - 02/13/21 GERD (gastroesophageal reflux disease)(Discharge Diagnosis) - 02/13/21 Hypertension(Discharge Diagnosis) - 02/13/21 Hypothyroidism(Discharge Diagnosis) - 02/13/21 Lupus(Discharge Diagnosis) - 02/13/21 Encounter for Medicare annual wellness exam(Discharge Diagnosis) - 02/13/21 Attending Physician: Vicki Cooper NP Allergies, Adverse Reactions, Alerts Substance Reaction Severity Status lidocaine Active amitriptyline Violence risk Active Valium Suicidal Suicidal Active Demerol HCl Active Other Food Allergy 1 Active penicillins Active tricyclic antidepressants Ac tive benzodiazepines Active Augmentin Hives Active Adderall Elevated liver enzymes level Active Bee Stings Active 1oxalic acid Immunizations Given and Recorded Vaccine Date Status Refusal Reason influenza virus vaccine, inactivated 1 02/13/21 Gi roger influenza virus vaccine, inactivated 2 02/09/20 Gi roger influenza virus vaccine, inactivated 12/12/18 Dima rded influenza virus vaccine, inactivated 12/18/17 Dima rded SARS-CoV-2 (COVID-19) mRNA BNT-162b2 vac 3 07/15/20 Recorded SARS-CoV-2 (COVID-19) mRNA-1273 vaccine 06/17/20 R ecorded pneumococcal 23-valent vaccine 01/11/14 Recorded tetanus/diphtheria/pertussis, acel(Tdap) 08/09/11 Recorded 1Result Comment: [facility]# [id number] 2Result Comment: [facility]: [id number] 3Result Comment: [facility] [place] [place] Medications Abilify 2 mg oral tablet 2 mg, 1, tablet, By Mouth, Daily, # 30 tablet, Refills 0, Maintenance, 04/13/19 11:44:00 EST Start Date: 04/13/19 Status: Ordered acetaminophen-oxyCODONE 325 mg-5 mg oral tablet 1, tablet, By Mouth, 2 times a day, Refills 0, Tot. Refills 0, Maintenance, 02/03/21 12:43:00 EST, Partial fill upon patient request if the prescription is for a schedule II opioid drug. Start Date: 02/03/21 Status: Ordered amLODIPine 10 mg oral tablet 1 tablet, By Mouth, Daily, # 90 tablet, 3 Refills, Maintenance, 06/14/20 13:26:00 EDT, [id number], 153.5, cm, 02/09/20 13:38:00 EST, Height Start [...] day, # 270 tablet, 3 Refills, Maintenance, 02/13/21 11:19:00 EST, [facility]/pharmacy #[id number], 153.5, cm, 02/13/21 11:00:00 EST, Height Start Date: 02/13/21 Stop Date: 02/08/22 Status: Ordered labetalol 100 mg oral tablet 1 tablet, By Mouth, 2 times a day, # 180 tablet, 3 Refills, [facility] ST[facility] [id number], 153.5, cm, 08/11/20 14:10:00 EDT, Height Start Date: 01/12/21 Status: Ordered Linzess 145 mcg oral capsule 1 capsule = 145 mcg, By Mouth, Daily, # 30 capsule, 0 Refills, Maintenance, 04/13/19 11:47:00 EST, Capsule Start Date: 04/13/19 Status: Ordered SCREW SUPERVISOR Thyroid 120 mg oral tablet 1 tablet = 120 mg, By Mouth, Daily, 0 Refills, Maintenance, 04/13/19 11:47:00 EST Start Date: 04/13/19 Status: Ordered omeprazole 20 mg oral enteric coated capsule 1 capsule = 20 mg, By Mouth, Daily, # 30 capsule, 0 Refills, Maintenance, 02/13/21 16:41:00 EST, ECCapsule, [facility]/pharmacy #[id number], Partial fill upon patient request if the prescription is for a schedule II opioid drug., 153.5, cm, 02/13/21 11:29:00 EST,... Start Date: 02/13/21 Stop Date: 03/15/21 Status: Ordered Prilosec 20 mg oral enteric coated capsule 20, mg, 1, capsule, By Mouth, 2 times a day, 0, 0, 11/15/05 14:25:32, Print BART Number, [id number], Constant Indicator Start Date: 11/15/05 Status: Ordered PriLOSEC OTC 20 mg oral delayed release tablet 1 tablet = 20 mg, By Mouth, Daily, # 90 tablet, 3 Refills, Maintenance, 02/13/21 11:20:00 EST, CR Tablet, [facility]/pharmacy #[id number], Partial fill upon patient request if the prescription is for a schedule II opioid drug., 153.5, cm, 02/13/21 11:00:00 EST, He... Start Date: 02/13/21 Stop Date: 02/08/22 Status: Ordered PROzac 20 mg oral capsule [...] Effective Dates Health Status Clinical Service Informant Physical exam Discharge Diagnosis 02/13/21 ADHD Discharge Diagnosis 02/13/21 Chronic back pain Discharge Diagnosis 02/13/21 Depression Discharge Diagnosis 02/13/21 GERD (gastroesophageal reflux disease) Discharge Diagnosis 02/13/21 Hypertension Discharge Diagnosis 02/13/21 Hypothyroidism Discharge Diagnosis 02/13/21 Lupus Discharge Diagnosis 02/13/21 Encounter for Medicare annual wellness exam Discharge Diagnosis 02/13/21 Vital Signs Most recent to oldest [Reference Range]: 1 2 3 Height 153.5 cm (02/13/21 11:29 AM) 153.5 cm (02/13/21 11:00 AM) 153.5 cm (02/13/21 10:46 AM) Weight 61.2 kg (02/13/21 10:46 AM) Oxygen Saturation [94-100 %] 96 % (02/13/21 10:46 AM) Pulse Rate [55-90 bpm] 93 bpm *H* (02/13/21 10:46 AM) Body Mass Index [18.5-24.99] 25.97 *H* (02/13/21 10:46 AM) Blood Pressure [90-138/55-84 mm Hg] 126/92mm Hg (02/13/21 11:29 AM) 147/98mm Hg *H* (02/13/21 11:00 AM) 156/98mm Hg *H* (02/13/21 10:46 AM) Mode of Delivery (Oxygen) Room air (02/13/21 10:46 AM) Blood pressure sites Arm, left (02/13/21 11:29 AM) Arm, right (02/13/21 11:00 AM) Arm, right (02/13/21 10:46 AM) Weight Obtained Via Standing scale (11/29/21 10:46 AM) Social History Social History Type Response Smoking Status Never (less than 100 in lifetime) entered on: 04/13/19 Sex
--- OUTSIDE RECORDS SUMMARY | 2022-08-02 14:31 | XMS_ITS | Continuity of Care Document ---
Author Name Unknown Organization [facility] Adult Address [address] [place] [address]- Care Team Providers Care Professional Skater Name Role Phone Kenneth CORBETT, Vicki Hay Primary Care Physician Encounter [facility] Date(s): 06/26/22 - 07/26/22 [facility] Adult [address] [place] [address]- Allergies, Adverse Reactions, Alerts Substance Reaction Severity Status lidocaine Active amitriptyline Violence risk Active penicillins Active tricyclic antidepressants Ac tive benzodiazepines Active Valium Suicidal Suicidal Active Augmentin Hives Active Adderall Elevated liver enzymes level Active Demerol HCl Active Bee Stings Active Other Food Allergy 1 Active 1oxalic acid Immunizations Given and Recorded Vaccine Date Status Refusal Reason [id number] bivalent booster vax 03/28/22 Recorded pneumococcal 13-valent [...] vac 4 07/15/20 Recorded pneumococcal 23-valent vaccine 01/11/14 Recorded tetanus/diphtheria/pertussis, acel(Tdap) 08/09/11 Recorded 1Result Comment: [facility]# [id number] 2Result Comment: [facility]# [id number] 3Result Comment: [facility]: [id number] 4Result Comment: [facility] [place] Medications Abilify 2 mg oral tablet 2 mg, 1, tablet, By Mouth, Daily, # 30 tablet, Refills 0, Maintenance, 04/13/19 11:44:00 EST Start Date: 04/13/19 Status: Ordered amLODIPine 10 mg oral tablet 1 tablet, By Mouth, Daily, # 30 tablet, 2 Refills, Maintenance, 05/18/22 11:13:00 EST, [id number], 153.5, cm, 02/14/22 12:05:00 EST, Height Start [...] tablet, 3 Refills, Maintenance, 02/14/22 11:53:00 EST, [facility]/pharmacy #[id number], 153.5, cm, 02/14/22 11:10:00 EST, Height Start Date: 02/14/22 Stop Date: 02/09/23 Status: Ordered labetalol 100 mg oral tablet 1 tablet, By Mouth, 2 times a day, # 60 tablet, 2 Refills, Maintenance, 05/18/22 11:14:00 EST, [id number], 153.5, cm, 02/14/22 12:05:00 EST, Height Start Date: 05/18/22 Status: Ordered Linzess 145 mcg oral capsule 1 capsule = 145 mcg, By Mouth, Daily, # 30 capsule, 0 Refills, Maintenance, 04/13/19 11:47:00 EST, Capsule Start Date: 04/13/19 Status: Ordered ASSISTANT TERMINAL MANAGER Thyroid 120 mg oral tablet 1 tablet = 120 mg, By Mouth, Daily, 0 Refills, Maintenance, 04/13/19 11:47:00 EST Start Date: 04/13/19 Status: Ordered omeprazole 20 mg oral enteric coated capsule 1 capsule = 20 mg, By Mouth, Daily, # 30 capsule, 0 Refills, Maintenance, 02/13/21 16:41:00 EST, Lesley, [facility]/pharmacy #[id number], Partial fill upon patient request if the [...] 100 in lifetime) entered on: 04/13/19 Sex Patient Care team information Care Team Personnel Name: Kenneth CORBETT, Vicki Hay Position: S PCO Associate Professional Member Role: PCP Address: Address: [address] [place] [address]- Care Team Related Persons Name: BE GALVEZ Address: home [address] [place] [address] Name: ECTOR HARVEY Address: home [address] [place] [address]
--- OUTSIDE RECORDS SUMMARY | 2022-08-02 14:31 | XMS_ITS | Continuity of Care Document ---
Author Name Unknown Organization [facility] Adult Address [address] [place] [address]- Care Team Providers Care Psych Tech Name Role Phone Vicki Cooper NP Primary Care Physician [place] [facility] [place]14[place]22 - 02/21/22 [facility] Adult [address] [place] [address]- Encounter Diagnosis Medicare annual wellness visit, subsequent(Discharge Diagnosis) - 02/14/22 ADHD(Discharge Diagnosis) - 02/14/22 Chronic back pain(Discharge Diagnosis) - 02/14/22 Depression(Discharge Diagnosis) - 02/14/22 GERD (gastroesophageal reflux disease)(Discharge Diagnosis) - 02/14/22 History of gastric ulcer(Discharge Diagnosis) - 02/14/22 Hypertension(Discharge Diagnosis) - 02/14/22 Hypothyroidism(Discharge Diagnosis) - 02/14/22 Lupus(Discharge Diagnosis) - 02/14/22 Attending Physician: Vicki Cooper NP Allergies, Adverse Reactions, Alerts Substance Reaction Severity Status lidocaine Active amitriptyline Violence risk Active penicillins Active tricyclic antidepressants Ac tive benzodiazepines Active Valium Suicidal Suicidal Active Augmentin Hives Active Adderall Elevated liver enzymes level Active Demerol HCl Active Bee Stings Active Other Food Allergy 1 Active 1oxalic acid Immunizations Given and Recorded Vaccine Date Status Refusal Reason pneumococcal 13-valent vaccine 1 02/14/22 Given influenza virus vaccine, inactivated 01/02/22 Dima rded influenza virus vaccine, inactivated 2 02/13/21 Gi roger influenza virus vaccine, inactivated 3 02/09/20 Gi roger influenza virus vaccine, inactivated 12/12/18 Dima rded influenza virus vaccine, inactivated 12/18/17 Dima rded SARS-CoV-2 (COVID-19) mRNA-1273 vaccine 6/14/22 R ecorded SARS-CoV-2 (COVID-19) mRNA-1273 vaccine 03/06/21 R ecorded SARS-CoV-2 (COVID-19) mRNA-1273 vaccine 06/17/20 R ecorded SARS-CoV-2 (COVID-19) mRNA BNT-162b2 vac 4 07/15/20 Recorded pneumococcal 23-valent vaccine 01/11/14 Recorded tetanus/diphtheria/pertussis, acel(Tdap) 08/09/11 Recorded 1Result Comment: [facility]# [id number] 2Result Comment: [facility]# [id number] 3Result Comment: [facility]: [id number] 4Result Comment: [facility] [place] Medications Abilify 2 mg oral tablet 2 mg, 1, tablet, By Mouth, Daily, # 30 tablet, Refills 0, Maintenance, 04/13/19 11:44:00 EST Start Date: 04/13/19 Status: Ordered amLODIPine 10 mg oral tablet 1 tablet, By Mouth, Daily, # 30 tablet, 0 Refills, Maintenance, 02/12/22 12:21:00 EST, [id number], 153.5, cm, 02/13/21 11:29:00 EST, Height Start Date: 02/12/22 Status: Ordered busPIRone 15 mg oral tablet [...] 3 Refills, Maintenance, 02/14/22 11:53:00 EST, [facility]/pharmacy #[id number], 153.5, cm, 02/14/22 11:10:00 EST, Height Start Date: 02/14/22 Stop Date: 02/09/23 Status: Ordered labetalol 100 mg oral tablet 1 tablet, By Mouth, 2 times a day, # 60 tablet, 0 Refills, Maintenance, 02/12/22 12:21:00 EST, [id number], 153.5, cm, 02/13/21 11:29:00 EST, Height Start Date: 02/12/22 Status: Ordered Linzess 145 mcg oral capsule 1 capsule = 145 mcg, By Mouth, Daily, # 30 capsule, 0 Refills, Maintenance, 04/13/19 11:47:00 EST, Capsule Start Date: 04/13/19 Status: Ordered GLUED WOOD TESTER Thyroid 120 mg oral tablet 1 tablet = 120 mg, By Mouth, Daily, 0 Refills, Maintenance, 04/13/19 11:47:00 EST Start Date: 04/13/19 Status: Ordered omeprazole 20 mg oral enteric coated capsule 1 capsule = 20 mg, By Mouth, Daily, # 30 capsule, 0 Refills, Maintenance, 02/13/21 16:41:00 EST, ECCapsule, [facility]/pharmacy #[id number], Partial fill upon patient request [...] Effective Dates Health Status Clinical Service Informant Medicare annual wellness visit, subsequent Discharge Diagnosis 02/14/22 ADHD Discharge Diagnosis 02/14/22 Chronic back pain Discharge Diagnosis 02/14/22 Depression Discharge Diagnosis 02/14/22 GERD (gastroesophageal reflux disease) Discharge Diagnosis 02/14/22 History of gastric ulcer Discharge Diagnosis 02/14/22 Hypertension Discharge Diagnosis 02/14/22 Hypothyroidism Discharge Diagnosis 02/14/22 Lupus Discharge Diagnosis 02/14/22 Vital Signs Most recent to oldest [Reference Range]: 1 2 Height 153.5 cm (02/14/22 12:05 PM) 153.5 cm (02/14/22 11:10 AM) Weight 59.7 kg (02/14/22 11:10 AM) Oxygen Saturation [94-100 %] 98 % (02/14/22 11:10 AM) Pulse Rate [55-90 bpm] 97 bpm *H* (02/14/22 11:10 AM) Body Mass Index [18.5-24.99 kg/m2] 25.34 kg/m2 *H* (02/14/22 11:10 AM) Blood Pressure [90-138/55-84 mm Hg] 124/ 88mm Hg (02/14/22 12:05 PM) 132/93mm Hg (02/14/22 11:10 AM) Temperature [96.8-100.4 DegF] 98.5 DegF (02/14/22 11:10 AM) Mode of Delivery (Oxygen) Room air (02/14/22 11:10 AM) Blood pressure sites Arm, left (02/14/22 12:05 PM) Arm, left (02/14/22 11:10 AM) Temperature Route Oral (02/14/22 11:10 AM) Weight Obtained Via Standing scale (02/14/22 11:10 AM) Social History Social History Type Response Smoking Status Never (less than 100 in lifetime) entered on: 04/13/19 Sex Note * Liliana Arthur: PERFORM, SIGN, VERIFY Event Display: Patient Education/Instruction Authored Date: [facility] *[facility] Clinical Summary Name DARRELL HARVEY Age 66 Years 1955 PCP Kenneth CORBETT, Vicki Hay PCP Visit Date 02/14/2022 11:08:00 Additional Instructions: Scheduled Appointments?? Future Appointments ?No Future Appointments Scheduled Follow-Up Instructions ?? Diagnosis Systemic lupus erythematosus, unspecified; Attention-deficit hyperactivity disorder, unspecified type; Personal history of other diseases of the digestive system; Encounter for general adult medical examination without abnormal findings; Essential (primary) hypertension; Hypothyroidism, unspecified; Dorsalgia, unspecified; Gastro-esophageal reflux disease without esophagitis; Major depressive disorder, single episode, unspecified Medications: Please continue your medications until treatment is completed or stopped by your provider. Discuss any questions related to medications with your provider. Medications to Continue Taking That Have Changed These medications were not printed or sent to your pharmacy - Omeprazole (omeprazole 20 mg oral enteric coated capsule) 1 capsule Oral Daily for 30 Days. Refills: 0. Next Dose: Medications to Continue with No Changes [id number], [address], [place] [id number], [phone] Gabapentin (gabapentin 600 mg oral tablet) 1 tab(s) Oral 3 times a day for 90 Days. Refills: 3. Next Dose: These medications were not printed or sent to your pharmacy Amlodipine (amLODIPine 10 mg oral tablet) 1 tab(s) Oral Daily. Refills: 0. Next Dose: Aripiprazole (Abilify 2 mg oral tablet) 1 tab(s) Oral Daily. Next Dose: BusPIRone (busPIRone 15 mg oral tablet) 1 tab(s) Oral twice a day for 30 Days. Next Dose: Fluoxetine (PROzac 20 mg oral capsule) 4 capsule Oral Daily. Next Dose: Labetalol (labetalol 100 mg oral tablet) 1 tab(s) Oral twice a day. Refills: 0. Next Dose: linaclotide (Linzess 145 mcg oral capsule) 1 capsule Oral Daily. Next Dose: Loratadine (Claritin Tablet) 1tab Oral. Next Dose: Methylphenidate (Ritalin 20 mg oral tablet) 1 tab(s) Oral 4 times a day. Next Dose: Thyroid Desiccated (GLUED WOOD TESTER Thyroid 120 mg oral tablet) 1 tab(s) Oral Daily. Next Dose: No Longer Take the Following Medications Buprenorphine (Butrans 10 mcg/hr transdermal film, extended release) 1 patch(es) Topically. Oxycodone / Acetaminophen (acetaminophen-oxyCODONE 325 mg-5 mg oral tablet) 1 tab(s) Oral twice a day. Allergy Info:?? Other Food Allergy; Bee Stings; Demerol HCl; Adderall; Augmentin; Valium; benzodiazepines; tricyclic antidepressants; penicillins; amitriptyline; lidocaine Medications Given This Visit Medication Dose Route pneumococcal 13-valent vaccine (pneumococcal 13-valent vacc) 0.5 mL Intramuscular Future Orders ?MM Digital Mammo Screening? Order Date:02/14/22?- Complete on or after?02/14/22 ?CBC w/ Differential? Order Date:02/14/22?- Complete on or after?02/14/22 ?Lipid Panel? Order Date:02/14/22?- Complete on or after?02/14/22 ?TSH with T4 Reflex (Adults Only)? Order Date:02/14/22?- Complete on or after?02/14/22 ?Vitamin D 25 Hydroxy Level? Order Date:02/14/22?- Complete on or after?02/14/22 ?Complete Urinalysis/Reflex Culture? Order Date:02/14/22?- Complete on or after?02/14/22 ?Basic Metabolic Panel? Order Date:02/14/22?- Complete on or after?02/14/22 Vital Signs Height 153.5 cm Weight 59.7 kg BMI 25.34 kg/m2 Blood Pressure 124 mm Hg/88 mm Hg Temperature 98.5 DegF Pulse Rate 97 bpm Respiratory Rate 02 Sat Mode of Delivery 98 %/Room air You can now view a summary of your hospital visit from the comfort of your home through a free online portal called [email or web address]. [email or web address] is a website that allows you to securely view your medical information including discharge summary, medications and follow-up visits. ??You can alsosend a secure electronic message to your doctor???s office to request appointments, renew medications or just ask a question. You can enroll at [email or web address] or register during your next office visit. [...] primary care provider, you may find a [facility] provider by calling [facility] [employer] [facility] at [phone]. For information about the plan of care [...] Associate Professional Member Role: PCP Address: Address: [address] [facility] [facility] [address]rd Floor [facility] [place] [address]- Care Team Related Persons Name: BE GALVEZ Address: [address] [place] [address] Name: ECTOR HARVEY Address: home [address] [place] [address]
--- OUTSIDE RECORDS SUMMARY | 2022-08-02 14:31 | XMS_ITS | Continuity of Care Document ---
Author Name Unknown Organization [facility] Adult Address [address] [place] [address]- Care Team Providers Care Acidizer Water Well Name Role Phone Kenneth CORBETT, Vicki Hay Primary Care Physician [place] [facility] [place] 06/03/[address] [facility] Adult [address] [place] [address]- Allergies, Adverse Reactions, Alerts Substance Reaction Severity Status lidocaine Active amitriptyline Violence risk Active penicillins Active tricyclic antidepressants Ac tive benzodiazepines Active Valium Suicidal Suicidal Active Augmentin Hives Active Adderall Elevated liver enzymes level Active Demerol HCl Active Bee Stings Active Other Food Allergy 1 Active 1oxalic acid Immunizations Given and Recorded Vaccine Date Status Refusal Reason [id number] bivalent booster vax 03/28/22 Recorded pneumococcal 13-valent [...] Recorded tetanus/diphtheria/pertussis, acel(Tdap) 08/09/11 Recorded 1Result Comment: [facility]# [id number] 2Result Comment: [facility]# [id number] 3Result Comment: [facility]: [id number] 4Result Comment: [facility] [place] Medications Abilify 2 mg oral tablet 2 mg, 1, tablet, By Mouth, Daily, # 30 tablet, Refills 0, Maintenance, 04/13/19 11:44:00 EST Start Date: 04/13/19 Status: Ordered amLODIPine 10 mg oral tablet 1 tablet, By Mouth, Daily, # 30 tablet, 2 Refills, Maintenance, 05/18/22 11:13:00 EST, [id number], 153.5, cm, 02/14/22 12:05:00 EST, Height Start [...] Refills, Maintenance, 05/18/22 11:14:00 EST, [facility], 153.5, cm, 02/14/22 12:05:00 EST, Height Start Date: 05/18/22 Status: Ordered Linzess 145 mcg oral capsule 1 capsule = 145 mcg, By Mouth, Daily, # 30 capsule, 0 Refills, Maintenance, 04/13/19 11:47:00 EST, Capsule Start Date: 04/13/19 Status: Ordered MECHANICAL FACILITIES TECHNICIAN Thyroid 120 mg oral tablet 1 tablet = 120 mg, By Mouth, Daily, 0 Refills, Maintenance, 04/13/19 11:47:00 EST Start Date: 04/13/19 Status: Ordered omeprazole 20 mg oral enteric coated capsule 1 capsule = 20 mg, By Mouth, Daily, # 30 capsule, 0 Refills, Maintenance, 02/13/21 16:41:00 EST, [facility], [id number], Partial fill upon patient request if the [...] Associate Professional Member Role: PCP Address: Address: [address] [place] [address] [address] [place], [place] [address] Care Team Related Persons Name: BE GALVEZ Address: home [address] [place] [address] Name: ECTOR HARVEY Address: home [address] [place] [address]
--- OUTSIDE RECORDS SUMMARY | 2022-08-02 14:31 | XMS_ITS | Continuity of Care Document ---
Author Name Unknown Organization [facility] [place] [address] [place] [address]- Care Team Providers Care Line Camera Operator Name Role Phone Kenneth CORBETT, Vicki Hay Primary Care Physician Encounter 04/16/20 - 04/23/20 [facility] [address], [address] [place], [place] [address] Attending Physician: Vicki Cooper NP Admitting Physician: Vicki Cooper NP Referring Physician: Vicki Cooper NP Allergies, Adverse Reactions, Alerts Substance Reaction Severity Status lidocaine Active amitriptyline Violence risk Active penicillins Active Demerol HCl Active Other Food Allergy 1 Active Bee Stings Active tricyclic antidepressants Ac tive benzodiazepines Active Valium Suicidal Suicidal Active Augmentin Hives Active Adderall Elevated liver enzymes level Active 1oxalic acid Immunizations Given and Recorded Vaccine Date Status Refusal Reason influenza virus vaccine, inactivated 1 02/09/20 Gi roger pneumococcal 23-valent vaccine 01/11/14 Recorded tetanus/diphtheria/pertussis, acel(Tdap) 08/09/11 Recorded 1Result Comment: [facility]: [id number] Medications Abilify 2 mg oral tablet 2 mg, 1, tablet, By Mouth, Daily, # 30 tablet, Refills 0, Maintenance, 04/13/19 11:44:00 EST Start Date: 04/13/19 Status: Ordered amLODIPine 10 mg oral tablet 10 mg, 1, tablet, By Mouth, Daily, # 90 tablet, Refills 3, Tot. Refills 3, Maintenance, 07/13/19 11:43:00 EDT, Route to Pharmacy Electronically, [facility]/pharmacy #[id number], 153.5, cm, 04/13/19 12:11:00 EST, Height [...] tablet, 3 Refills, Maintenance, 02/09/20 13:32:00 EST, [facility]/pharmacy #[id number], 153.5, cm, 02/09/20 13:02:00 EST, Height Start Date: 02/09/20 Stop Date: 02/03/21 Status: Ordered labetalol 100 mg oral tablet 1 tablet = 100 mg, By Mouth, 2 times a day, # 180 tablet, 3 Refills, Maintenance, 07/13/19 11:44:00EDT, Tablet, [facility]/pharmacy #[id number], 153.5, cm, 04/13/19 12:11:00 EST, Height [...] patient request Start Date: 10/14/19 Status: Ordered UPHOLSTERY CUTTER Thyroid 120 mg oral tablet 1 tablet = 120 mg, By Mouth, Daily, 0 Refills, Maintenance, 04/13/19 11:47:00 EST Start Date: 04/13/19 Status: Ordered Prilosec 20 mg oral enteric coated capsule 20, mg, 1, capsule, By Mouth, 2 times a day, 0, 0, 11/15/05 14:25:32, Print BART Number, [id number], Constant Indicator Start Date: 11/15/05 Status: Ordered [...]
--- OUTSIDE RECORDS SUMMARY | 2022-08-02 14:31 | XMS_ITS | Continuity of Care Document ---
Author Name Unknown Organization [facility] Adult Address [address] [place] [address]- Care Team Providers Care Production Officer Name Role Phone Kenneth CORBETT, Vicki Hay Primary Care Physician Encounter [facility] [place] Date(s): 07/13/19 - 07/20/19 [facility] [address] [place] [address]- [facility] Encounter Diagnosis ADHD(Discharge Diagnosis) - 07/13/19 Chronic back pain(Discharge Diagnosis) - 07/13/19 Depression(Discharge Diagnosis) - 07/13/19 Hypertension(Discharge Diagnosis) - 07/13/19 Hypothyroidism(Discharge Diagnosis) - 07/13/19 Attending Physician: Vicki Cooper NP Allergies, Adverse Reactions, Alerts Substance Reaction Severity Status lidocaine Active amitriptyline Violence risk Active benzodiazepines Active Valium Suicidal Suicidal Active Adderall Elevated liver enzymes level Active Other Food Allergy 1 Active Bee Stings Active penicillins Active tricyclic antidepressants Ac tive Augmentin Hives Active Demerol HCl Active 1oxalic acid Immunizations Given and Recorded [...] 07/13/19 11:43:00 EDT, Route to Pharmacy Electronically, [facility]/pharmacy #[id number], 153.5, cm, 04/13/19 12:11:00 EST, Height Start Date: 07/13/19 Stop Date: 07/07/20 Status: Ordered busPIRone 30 mg oral tablet 1 tablet = 30 mg, By Mouth, 2 times a day, # 60 tablet, 0 Refills, Maintenance, 04/13/19 11:48:00 EST, Tablet Start Date: 04/13/19 Status: Ordered Butrans 10 mcg/hr transdermal film, [...] tablet, 3 Refills, Maintenance, 07/13/19 11:44:00EDT, Tablet, [facility]/pharmacy #[id number], 153.5, cm, 04/13/19 12:11:00 EST, Height [...] patient request Start Date: 04/13/19 Status: Ordered CLOTHING CONSULTANT Thyroid 120 mg oral tablet 1 tablet = 120 mg, By Mouth, Daily, 0 Refills, Maintenance, 04/13/19 11:47:00 EST Start Date: 04/13/19 Status: Ordered Prilosec 20 mg oral enteric coated capsule 20, mg, 1, capsule, By Mouth, 2 times a day, 0, 0, 08/31/06 14:25:32, Print BART Number, [id number], Constant Indicator Start Date: 11/15/05 Status: Ordered [...] Status Clinical Service Informant ADHD Discharge Diagnosis 07/13/19 Chronic back pain Discharge Diagnosis 07/13/19 Depression Discharge Diagnosis 07/13/19 Hypertension Discharge Diagnosis 07/13/19 Hypothyroidism Discharge Diagnosis 07/13/19 Social History Social History Type Response Smoking Status Never (less than 100 in lifetime) entered on: 04/13/19 Sex
--- OUTSIDE RECORDS SUMMARY | 2022-08-02 14:31 | XMS_ITS | Continuity of Care Document ---
Author Name Unknown Organization [facility] Adult Address [address] [place] [address]- Care Team Providers Care Scale Operator Name Role Phone Kenneth CORBETT, Vicki Hay Primary Care Physician Encounter [facility] Date(s): 06/15/22 - 07/15/22 [facility] [address] [place] [address]- Allergies, Adverse Reactions, Alerts Substance Reaction Severity Status lidocaine Active amitriptyline Violence risk Active benzodiazepines Active Augmentin Hives Active Other Food Allergy 1 Active penicillins Active tricyclic antidepressants Ac tive Valium Suicidal Suicidal Active Adderall Elevated liver enzymes level Active Demerol HCl Active Bee Stings Active 1oxalic acid Immunizations Given and Recorded Vaccine Date Status Refusal Reason [id number] bivalent booster vax 03/28/22 Recorded pneumococcal 13-valent [...] Recorded tetanus/diphtheria/pertussis, acel(Tdap) 08/09/11 Recorded 1Result Comment: [facility]# [id number] 2Result Comment: [facility]# [id number] 3Result Comment: [facility]: [id number] 4Result Comment: [facility] [place] Medications Abilify 2 mg oral tablet 2 mg, 1, tablet, By Mouth, Daily, # 30 tablet, Refills 0, Maintenance, 04/13/19 11:44:00 EST Start Date: 04/13/19 Status: Ordered amLODIPine 10 mg oral tablet 1 tablet, By Mouth, Daily, # 30 tablet, 2 Refills, Maintenance, 05/18/22 11:13:00 EST, [id number], 153.5, cm, 02/14/22 12:05:00 EST, Height Start [...] tablet, 3 Refills, Maintenance, 02/14/22 11:53:00 EST, [facility]/pharmacy #[id number], 153.5, cm, 02/14/22 11:10:00 EST, Height Start Date: 02/14/22 Stop Date: 02/09/23 Status: Ordered labetalol 100 mg oral tablet 1 tablet, By Mouth, 2 times a day, # 60 tablet, 2 Refills, Maintenance, 05/18/22 11:14:00 EST, [id number], 153.5, cm, 02/14/22 12:05:00 EST, Height Start Date: 05/18/22 Status: Ordered Linzess 145 mcg oral capsule 1 capsule = 145 mcg, By Mouth, Daily, # 30 capsule, 0 Refills, Maintenance, 04/13/19 11:47:00 EST, Capsule Start Date: 04/13/19 Status: Ordered RELAY TESTER HELPER Thyroid 120 mg oral tablet 1 tablet = 120 mg, By Mouth, Daily, 0 Refills, Maintenance, 04/13/19 11:47:00 EST Start Date: 04/13/19 Status: Ordered omeprazole 20 mg oral enteric coated capsule 1 capsule = 20 mg, By Mouth, Daily, # 30 capsule, 0 Refills, Maintenance, 02/13/21 16:41:00 EST, ECCapsule, [facility]/pharmacy #[id number], Partial fill upon patient request if the [...] Associate Professional Member Role: PCP Address: Address: [address] [place] [address] [address] [place] [address]- Care Team Related Persons Name: BE GALVEZ Address: home [address] [place] [address] Name: ECTOR HARVEY Address: home [address] [place] [address]
[2022-08-06] VITALS (14 sets, daily range): BP systolic 117–177; BP diastolic 77–96; PULSE 77–98; RESP 13–18; TEMP 36.1–37.2; O2SAT 93–100
[2022-08-06] MEDS: Lactated Ringers 1,000 ML 100 ML IVCONT (06:45)
[2022-08-06] MEDS: Gabapentin 300 MG CAPSULE PO (06:46)
[2022-08-06] MEDS: vancomycin HCL 1,000 MG in 0.9 % Sodium Chloride 250 ML 270 MG IV ×2 (06:46→21:45)
[2022-08-06] MEDS: methocarbamoL 750 MG TABLET PO (06:46)
--- NOTE | 2022-08-06 10:30 | W.PM.OPN ---
Operative Note Operative Note Date of Service: 08/06/22 Narrative: Preoperative Diagnosis: (1) L2-3 spondylolisthesis with right radiculopath Procedure: 1) L2-3 oblique lateral lumbar interbody fusion with discectomy, preparation of the endplates and placement of an expandable cage packed with allograft, anterior to the transverse process and modified prone position, with intraoperative biplanar fluoroscopy imaging and electrophysiological monitoring 2) L2-3 posterior minimally invasive pedicle screw placement and posterior lateral instrumentation and fusion with electrophysiological monitoring Consent Informed Consent was obtained for this operation. I have explained the nature, purpose and benefits of the operation. I have discussed the risks and benefit of the operation including possible complications or adverse events with patient/family. Alternative(s) were discussed with the patient with their relative benefits and risks as well as the consequences of not accepting the operation were included in obtaining consent. Surgeon: ANNA VASQUEZ MD, PHD Procedure Assisted By: Kranthi Collier Description of Procedure: . this patient has suffered from right lumbar radiculopathy and weakness due to an L2-3 spondylolisthesis.The patient was offered an oblique lumbar lateral interbody fusion followed by a posterior lateral instrumented fusion L2-3. The procedure and complications were explained and he was consented. The patient was brought to the operating room and endotracheally intubated. The patient was put in a prone position on the Moises spine table. 2C arms were installed for fluoroscopy. Prepping and draping was done followed by timeout. The landmarks, including spinal processes, transverse processes, disc space, endplates and pedicles are identified and marked. The following steps are taken for the L2-3 level: 32 mm expandable titanium cage that was expanded from 8 mm to 11 mm height . A small incision was made superior to the mid iliac crest and then using biplanar fluoroscopy visualization, under electrophysiological monitoring and stimulation, we introduced an electrophysiological probe through the retroperitoneal space into the desired disc anterior to the transverse process and then passed it into the disc space after finding a silent window. The sleeve was retained and the probe was removed, then the K wire was passed sequentially into the disc space. A dilating tube was then passed along the same route. Following this, a working channel was manually held in position while a series of disc cleaning tools were passed through the channel to remove the affected disc under clear and direct biplanar fluoroscopic visualization, decompress the nerve roots and equal corticated vertebral endplates at this segment. Arthrodesis of the intervertebral space for an anterior retroperitoneal exposure and application of intervertebral biomechanical device was then accomplished by using the working channel that had been placed into the retroperitoneal space anterior to the transverse process. After adequate decompression and preparation of the endplates, we then put allograft anterior into the disc space followed by a titanium interbody spacer, which is packed tightly with allograft bone for stabilization and arthrodesis of the anterior vertebral space and inserted the cage into the midportion of the intervertebral disc. This again was done on the biplanar fluoroscopic visualization. All bone was confined to the borders of the disc space. The following steps are then taken for the L2-3 level: Bilateral L2 screws with a diameter of 6.5 x 40 mm, left L3 pedicle with a diameter of 6.5 x 40 at a right L3 pedicle with a diameter of 7.5 x 40 mm. 2C arms were installed for fluoroscopy. A right paramedian incision was made lateral from the L2 pedicle. The Pediguard tap was used to create a transpedicular trajectory into the vertebral body. The K wire was inserted. The steps were repeated for the left L2 and bilateral L3 pedicles, A specially designed instrument was passed over the K wires to decorticate the posterior lateral gutter. A total of for pedicle screws were inserted with the above-mentioned diameters for the L2-3 level. Bilaterally a 45 mm nikole was inserted and locked down with locking caps. Final x-rays and AP and lateral projection showed good position of the interbody device and instrumentation. Allograft was laid down in the posterior lateral gutter to complete the posterior lateral fusion. The paramedian incisions and the incision in the flank were closed in 2 layers. Steri-Strips were used to approximate the incisions. An OpSite with Tegaderm was used to cover the incision. All sponge and needle counts were correct. The patient was extubated and transported in a stable condition to the recovery room. This procedure was done with the aid of a physican's assistant front office manager as a qualified resident was not available. The physician assistant front office manager was critical for the following aspects of surgery: insertion and locking down of the rods and closure of the incisions Anesthesia: General Estimated Blood Loss (ml): 60 Specimen: None Duration of Surgery: 2 hours Postoperative Plan: Admit to med surg for monitoring
[2022-08-06] MEDS: HYDROmorphone HCl 0.5 MG/0.5 ML SYRINGE IVPUSH (11:55)
[2022-08-06] MEDS: ondansetron HCL 4 MG/2 ML VIAL IVPUSH (13:25)
[2022-08-06] MEDS: 0.9 % Sodium Chloride 1,000 ML 75 ML IVCONT (13:29)
[2022-08-06] MEDS: HYDROmorphone HCl 1 MG/ML SYRINGE IVPUSH ×2 (14:13→18:18)
--- NOTE | 2022-08-06 14:15 | HO.NEURO.PN ---
Neurosurgery Operative Note Date of Service: 08/06/22 Narrative: Postoperative day 0. Right-sided approach L2-3 trans Kambin minimally invasive lumbar fusion Patient has been up walking around her room independently, she is not feeling the cramping pain down her right leg. She was sitting on the toilet when I came to see her. A thorough motor testing not possible. Her wounds are clean and dry with small amount of blood. She is able to stand about the toilet and ambulate over to her bed and get independently in an out of it. Impression: Postop day 0. right-sided approach L2-3 trans cam of minimally invasive lumbar fusion, clinically with improvement of her right leg pain. She is ambulating independently to the bathroom back. She complaining of back pain and nausea. I will add some scopolamine to her medications. Plan will be to discharge her home tomorrow. I updated the patient and her daughter who was there in the room today. Discussed with Dr. Yin.
--- NOTE | 2022-08-06 15:06 | PHA.MEDREC ---
Addendum entered by Genet [facility] 08/06/22 15:16: PATIENT CONFIRMED SHE IS ON SOME MEDICATIONS THAT DO NOT HAVE CLAIM HISTORY SUCH BUSPAR AND LASIX Original Note: Pharmacy Consult ? Medication Reconciliation Pharmacy has completed the medication reconciliation. reviewed list with patient. She claims she has not been taking Linzess since her hip surgery and takes the loratadine as needed.
[2022-08-06] MEDS: Acetaminophen 1,000 MG/100 ML PIGGYBACK 400 MG IV ×2 (15:26→21:05)
[2022-08-06] MEDS: Gabapentin 600 MG TABLET PO ×2 (15:35→21:07)
[2022-08-06] MEDS: Scopolamine 1.5 MG PATCH.TD.3 EAR-BEHIND (15:41)
[2022-08-06] MEDS: Ketorolac Tromethamine 15 MG/ML VIAL IVPUSH (17:08)
[2022-08-06] MEDS: ARIPiprazole 2 MG TABLET PO (21:07)
[2022-08-06] MEDS: FLUoxetine HCl 20 MG CAPSULE 80 MG PO (21:07)
[2022-08-06] MEDS: busPIRone HCl 5 MG TABLET 15 MG PO (21:07)
[2022-08-06] MEDS: amLODIPine Besylate 10 MG TABLET PO (21:08)
[2022-08-06] MEDS: Labetalol HCL 100 MG TABLET PO (21:08)
[2022-08-07] MEDS: Ketorolac Tromethamine 15 MG/ML VIAL IVPUSH ×2 (00:27→05:57)
[2022-08-07] MEDS: Acetaminophen 1,000 MG/100 ML PIGGYBACK 400 MG IV (03:03)
[2022-08-07] MEDS: 0.9 % Sodium Chloride 1,000 ML 75 ML IVCONT (03:03)
[2022-08-07] MEDS: HYDROmorphone HCl 1 MG/ML SYRINGE IVPUSH (03:41)
[2022-08-07 04:00] VITALS: BP 138/73; PULSE 60; RESP 16; TEMP 36.5; O2SAT 93
[2022-08-07 07:33] VITALS: BP 140/89; PULSE 89; RESP 20; TEMP 36.6; O2SAT 96
[2022-08-07] MEDS: Labetalol HCL 100 MG TABLET PO (07:43)
[2022-08-07] MEDS: Omeprazole 20 MG CAPSULE.DR PO (07:43)
[2022-08-07] MEDS: Methylphenidate HCl 10 MG TABLET 20 MG PO (07:43)
--- NOTE | 2022-08-07 08:03 | HO.NEURO.PN ---
Neurosurgery Operative Note Date of Service: 08/07/22 Narrative: Postop day 1. L2-3 trans Kambin minimally invasive lumbar fusion patient reports that her right leg pain that she had before surgery is gone, she still feeling nauseous but otherwise doing okay. Appetite is poor but she is eating. Patient Reports she is voiding without any problems. Afebrile, vital signs stable physical exam: Patient is awake alert oriented x3, no acute distress, she is sitting in bed, she has full strength bilateral lower extremities. Patient has dressings which are clean and dry, small amount of stating on the far-lateral dressing. No Signs of hematoma. impression: Postop day 1. L2-3 trans Kambin minimally invasive lumbar fusion, clinically doing well with improvement of right leg pain. She wants to get out of bed move around, is going to work with PT today. She has already been up walking to the bathroom. She is reasonably comfortable on Dilaudid. The plan will be to discharge her home today after she sees PT. I will update Dr. Yin on her status.
--- NOTE | 2022-08-07 08:06 | P.DS_ITS ---
DS: Providers Provider Date of Service: 08/06/22 Date of admission: 08/02/22 14:23 Date of discharge: 08/07/22 Primary care physician: Vicki Cooper NP Admitting clinician: Keith Yin DS: Diagnosis Discharge Diagnosis (1) Spondylolisthesis, lumbar region: Status: Acute DS: Summary Time Spent with Patient Time attestation: Total time managing care of this patient today ____ minutes. Discharge coordination time: Less than 30 minutes Quality: Safe Use of Opioids Does Pt have an Active Cancer Diagnosis on the Problem List?: No Quality: Stroke Does the patient have a stroke diagnosis?: No Physical Exam Vital Signs: Vital Signs: Last Vital Signs Temp 97.9 F 08/07/22 07:33 Pulse 89 08/07/22 07:33 Resp 20 08/07/22 07:33 BP 140/89 H 08/07/22 07:33 Pulse Ox 96 08/07/22 07:33 O2 Del Method Room Air 08/07/22 07:33 O2 Flow Rate 3 08/06/22 15:27 BMI result Body Mass Index 25.7 Discharge Plan Discharge Anticipated Discharge Date/Time: 08/07/22 12:00 Patient Disposition: Home, Self-Care Discharge Diagnosis: lumbar spondylolisthesis with lumbar stenosis Referrals: Vicki Cooper NP [Primary Care Provider] - 1 Week Discharge Medications: New hydromorphone [Dilaudid] 2 mg tablet See Rx Instructions .ROUTE .COMPLEX Qty: 40 0RF Rx Instructions: 1-2 tabs po q4 hours prn pain Partial Fill upon patient request. ondansetron HCl 4 mg tablet 4 mg PO Q8H PRN (Reason: nausea and vomiting) 5 Days Qty: 20 0RF docusate sodium [Colace] 100 mg capsule 100 mg PO BID Qty: 20 0RF Continued baclofen 10 mg tablet 10 mg PO Q6H MDD 3 pills PRN (Reason: Spasticity, cramps) 30 Days Qty: 120 6RF omeprazole 20 mg capsule,delayed release(DR/EC) 1 cap PO DAILY labetalol 100 mg tablet 1 tab PO BID loratadine 10 mg Tablet 10 mg PO DAILY PRN (Reason: Allergy Symptoms) [place] Thyroid 120 mg PO DAILY amlodipine 10 mg tablet 10 mg PO BEDTIME gabapentin 600 mg tablet 600 mg PO TID fluoxetine 20 mg capsule 80 mg PO BEDTIME aripiprazole 2 mg tablet 2 mg PO BEDTIME buspirone 30 mg tablet 15 mg PO BEDTIME methylphenidate HCl 20 mg tablet 20 mg PO QID Narcan 4 mg/actuation spray,non-aerosol 4 mg intranasal Q2M PRN (Reason: opioid overdose) Qty: 2 0RF Rx Instructions: spray 1 dose into ONE nostril; alternate nostrils w each dose until help arrives Discharge Orders: Discharge Order (Routine); Ordered 08/07/22 Ordered By: iTm Bazan Diet: Advance to usual diet Activity on Discharge: As tolerated Stand Alone Forms: Patient Portal Discharge page Activity Restrictions/Additional Instructions: After your spinal surgery we ask you to observe the following restrictions/guidelines: Activity: It is normal to feel some discomfort as you increase your activity, but that will improve with time. We ask you avoid heavy lifting or acitivities that cause pain. As a general rule, 8lbs is a safe limit for lifting right after surgery. Walk as much as you feel comfortable but not to exhaustion. You will feel extra tired the first few days after surgery. Stay well hydrated. It is OK to walk up and down stairs You may return to driving when you are off narcotics (such as vicodin, oxycodone, dilaudid, etc), and you are back to normal functional capacity. If you have any concerns please check with office before driving. Return to work is specific to each patient and each surgery, so please speak with your doctor/PA at first follow up. Please bring paperwork such as FMLA at that time if you need it filled out. Medications: We will give you a short supply of narcotics after surgery (usually one weeks worth). If you need more please call the office but do not use more than prescribed. You will need to give our office 48 hours notice if you need narcotics refilled and we do not fill narcotics on weekends or evenings. If you are on a narcotic, it is a good idea to take a stool softener such as colace or senna to avoid constipation If you take blood thinner such as aspirin, Plavix, Coumadin, Effient, Eliquis etc for conditions such as Afib, DVT, Pulmonary embolus, coronary disease, stents etc please speak with your surgeon about specific details as to when you can resume these medications. You can resume NSAIDs on post op day 1 (eg: Motrin, Naproxen, etc). Follow up: Please call the office, , after surgery to arrange a 3 week follow up for wound check. Wound Care: You may remove your dressing on the first day after surgery. You may leave open to air. Please do not remove the steri strips underneath. they will fall off on their own in one week. IT IS NORMAL FOR THE WOUND TO OOZE OR BE BLOODY FOR A FEW DAYS AFTER SURGERY. IF THIS HAPPENS JUST PLACE NEW DRESSING OVER IT TO AVOID STAINING CLOTHES. You may shower on post op day # 1 We ask that you do not let the water soak the wound. If it does get wet, just towel dry lightly. Please do not scrub your incision or place any type of chemical/ointment on the wound. No tub baths, pools or jacuzzis for one month. If you have any leaking or redness from your wound, or fevers, please call office Care Plan Goals: discharge home Health Concerns: none Plan of Treatment: discharge home Assessment: stable
--- NOTE | 2022-08-07 08:42 | MHC.CM.PN ---
[facility] DELIVERED PT LIVES WITH DAUGHTER IN A [facility]. USES CANE NEEDED. HAS WEEKLY DIRECTOR CLINICAL RESEARCH SUPPORT THROUGH [employer]. +HCP, COPY AT HOME + COVID VAX X4 PCP DR. JACKMAN DP: PT HAS BEEN MEDICALLY CLEARED FOR DC HOME, NO SERVICES. DAUGHTER WILL TRANSPORT.
--- NOTE | 2022-08-07 09:57 | P.DS_ITS ---
DS: Providers Provider Date of Service: 08/07/22 Date of admission: 08/02/22 14:23 Primary care physician: Vicki Cooper NP DS: Diagnosis Discharge Diagnosis (1) Spondylolisthesis, lumbar region: Status: Acute DS: Summary Time Spent with Patient Time attestation: Total time managing care of this patient today ____ minutes. Discharge coordination time: Less than 30 minutes Quality: Safe Use of Opioids Does Pt have an Active Cancer Diagnosis on the Problem List?: No Quality: Stroke Does the patient have a stroke diagnosis?: No Physical Exam Vital Signs: Vital Signs: Last Vital Signs Temp 97.9 F 08/07/22 07:33 Pulse 89 08/07/22 07:33 Resp 20 08/07/22 07:33 BP 140/89 H 08/07/22 07:33 Pulse Ox 96 08/07/22 07:33 O2 Del Method Room Air 08/07/22 07:33 O2 Flow Rate 3 08/06/22 15:27 BMI result Body Mass Index 25.7 Discharge Plan Discharge Anticipated Discharge Date/Time: 08/07/22 12:00 Patient Disposition: Home, Self-Care Discharge Diagnosis: lumbar spondylolisthesis with lumbar stenosis Referrals: Vicki Copoer NP [Primary Care Provider] - 1 Week Discharge Medications: New hydromorphone [Dilaudid] 2 mg tablet See Rx Instructions .ROUTE .COMPLEX Qty: 40 0RF Rx Instructions: 1-2 tabs po q4 hours prn pain Partial Fill upon patient request. ondansetron HCl 4 mg tablet 4 mg PO Q8H PRN (Reason: nausea and vomiting) 5 Days Qty: 20 0RF docusate sodium [Colace] 100 mg capsule 100 mg PO BID Qty: 20 0RF Continued baclofen 10 mg tablet 10 mg PO Q6H MDD 3 pills PRN (Reason: Spasticity, cramps) 30 Days Qty: 120 6RF omeprazole 20 mg capsule,delayed release(DR/EC) 1 cap PO DAILY labetalol 100 mg tablet 1 tab PO BID loratadine 10 mg Tablet 10 mg PO DAILY PRN (Reason: Allergy Symptoms) [place] Thyroid 120 mg PO DAILY amlodipine 10 mg tablet 10 mg PO BEDTIME gabapentin 600 mg tablet 600 mg PO TID fluoxetine 20 mg capsule 80 mg PO BEDTIME aripiprazole 2 mg tablet 2 mg PO BEDTIME buspirone 30 mg tablet 15 mg PO BEDTIME methylphenidate HCl 20 mg tablet 20 mg PO QID Narcan 4 mg/actuation spray,non-aerosol 4 mg intranasal Q2M PRN (Reason: opioid overdose) Qty: 2 0RF Rx Instructions: spray 1 dose into ONE nostril; alternate nostrils w each dose until help arrives Discharge Orders: Discharge Order (Routine); Ordered 08/07/22 Ordered By: Tim Bazan Diet: Advance to usual diet Activity on Discharge: As tolerated Stand Alone Forms: Patient Portal Discharge page Activity Restrictions/Additional Instructions: After your spinal surgery we ask you to observe the following restrictions/guidelines: Activity: It is normal to feel some discomfort as you increase your activity, but that will improve with time. We ask you avoid heavy lifting or acitivities that cause pain. As a general rule, 8lbs is a safe limit for lifting right after surgery. Walk as much as you feel comfortable but not to exhaustion. You will feel extra tired the first few days after surgery. Stay well hydrated. It is OK to walk up and down stairs You may return to driving when you are off narcotics (such as vicodin, oxycodone, dilaudid, etc), and you are back to normal functional capacity. If you have any concerns please check with office before driving. Return to work is specific to each patient and each surgery, so please speak with your doctor/PA at first follow up. Please bring paperwork such as FMLA at that time if you need it filled out. Medications: We will give you a short supply of narcotics after surgery (usually one weeks worth). If you need more please call the office but do not use more than prescribed. You will need to give our office 48 hours notice if you need narcotics refilled and we do not fill narcotics on weekends or evenings. If you are on a narcotic, it is a good idea to take a stool softener such as colace or senna to avoid constipation If you take blood thinner such as aspirin, Plavix, Coumadin, Effient, Eliquis etc for conditions such as Afib, DVT, Pulmonary embolus, coronary disease, stents etc please speak with your surgeon about specific details as to when you can resume these medications. You can resume NSAIDs on post op day 1 (eg: Motrin, Naproxen, etc). Follow up: Please call the office, , after surgery to arrange a 3 week follow up for wound check. Wound Care: You may remove your dressing on the first day after surgery. You may leave open to air. Please do not remove the steri strips underneath. they will fall off on their own in one week. IT IS NORMAL FOR THE WOUND TO OOZE OR BE BLOODY FOR A FEW DAYS AFTER SURGERY. IF THIS HAPPENS JUST PLACE NEW DRESSING OVER IT TO AVOID STAINING CLOTHES. You may shower on post op day # 1 We ask that you do not let the water soak the wound. If it does get wet, just towel dry lightly. Please do not scrub your incision or place any type of chemical/ointment on the wound. No tub baths, pools or jacuzzis for one month. If you have any leaking or redness from your wound, or fevers, please call office Care Plan Goals: discharge home Health Concerns: none Plan of Treatment: discharge home Assessment: stable
--- NOTE | 2022-08-07 16:35 | HO.POSTANES ---
Post Anesthesia Evaluation Post Anesthesia Evaluation Date of Service: 08/07/22 Vital Signs: Vital Signs Temp Pulse Resp BP Pulse Ox O2 Del Method 08/07/22 07:33 97.9 F 89 20 140/89 H 96 Room Air Anesthesia: General Endotracheal-GETA Mental Status: Awake Pain Control: Satisfactory Nausea/Vomiting: None Hydration: Adequate Anesthesia-Related Issues: No Anes. Related Issues
== END 2022-08-07 11:08 | disposition home or self-care (01) | DRG 460 ==
LOC: HO.SSSA 14:29 → HO.S3 08-06 11:58
PROVIDERS: Neurological Surgery; Nurse Practitioner; Admitting Provider Physician Assistant; PCP Nurse Practitioner Family; Visit Provider Physician Assistant
DX: M43.16 Spondylolisthesis, lumbar region (principal); M54.16 Radiculopathy, lumbar region; M96.1 Postlaminectomy syndrome, not elsewhere classified; M32.9 Systemic lupus erythematosus, unspecified; F32.9 Major depressive disorder, single episode, unspecified; Z88.0 Allergy status to penicillin; Z79.899 Other long term (current) drug therapy
CPT/HCPCS: 36415; 80048; 83735; 85027; 93005; 97161; 99212; C1713; J0131; J1100; J1170; J1885; J2370; J2405; J2795; J3010; J3370; L8699

== ENCOUNTER → 2022-08-28 13:47 | Outpatient (BNVA) | payer MEDICARE, MEDICAID, SELFPAY | PROVIDERS: PCP Nurse Practitioner Family; Visit Provider Neurological Surgery | DX: Z47.89 Encounter for other orthopedic aftercare (principal); Z98.1 Arthrodesis status | CPT/HCPCS: 99212 ==

== ENCOUNTER 2022-10-09 11:03 | Outpatient (REF) | payer MEDICARE, MEDICAID, SELFPAY | END 2022-10-09 11:04 | disposition home or self-care (01) | LOC: HO.HOSX 11:03 | PROVIDERS: Visit Provider Neurological Surgery | DX: Z98.1 Arthrodesis status (principal) | CPT/HCPCS: 99212 ==

== ENCOUNTER 2022-10-09 15:28 | Outpatient (AMB) | payer MEDICARE, MEDICAID, SELFPAY ==
--- NOTE | 2022-10-09 13:29 | HO.SPINEOV ---
Intake Intake Visit Reasons: 6 wk follow up Intake Note: Ms. Robles is here today for her 6wk f/u. Psychiatric Aide Instructor Required: No Allergies amitriptyline Allergy (Severe, Verified 08/28/22 14:03) VIOLENCE diazepam [Valium] Allergy (Severe, Verified 08/28/22 14:03) SUICIDAL lorazepam Allergy (Severe, Verified 08/28/22 14:03) suicidal Penicillins Allergy (Severe, Verified 08/28/22 14:03) hives amoxicillin [Augmentin] Allergy (Intermediate, Verified 08/28/22 14:03) hives clavulanic acid [Augmentin] Allergy (Intermediate, Verified 08/28/22 14:03) hives meperidine [Demerol] Allergy (Intermediate, Verified 08/28/22 14:03) vomiting buprenorphine [From Belbuca] Adverse Reaction (Intermediate, Verified 08/28/22 14:03) hives bupivacaine Adverse Reaction (Verified 08/28/22 14:03) Involuntary Spasms HPI 6 wk follow up HPI Onset 10/09/22 Assessment & Plan Assessment & Plan (1) Status post lumbar and lumbosacral fusion by anterior technique: Code(s): Z98.1 - Arthrodesis status Plan Dear CHELLE Cooper, Today I saw Karrie for her 6 week follow up. She is a pleasant 66 year old woman, who endorses continued resolution of symptoms post-operatively. She underwent a minimally invasive L2-3 lumbar fusion through a Transkambin approach. She states she has minimal pain that is comparatively much better when compared to her pain prior to surgery. She denies weakness, numbness or other myelopathic symptoms. She states she has been utilizing physical therapy for continued symptom relief. PMH: 21 surgeries, 2 cervical fusions a lumbar fusion, lumbar decompression, carpal tunnel in both hands twice, multiple surgeries on the gallbladder, bile duct and pancreatic duct, appendectomy, knee replacement, hip replacement.? She also has hypertension and lupus.? Her lupus is only intermittent and she treated with steroids during her flare ups. Social hx: Non-smoker, no disclosed substance use. Lives at home in safe housing. Medications: Amlodipine, labetalol, gabapentin, levothyroxine, Prozac, Abilify, Buspar, Ritalin Allergies: Benzodiazepines, Demerol, penicillin and tricyclic compounds Physical exam: She is no longer using her cane to ambulate. She has 5/5 strength in her LEs. Upper extremity strength is normal. She has (-) Keene's bilaterally but is hyper-reflexive in her upper extremities. Reflexes in lower extremity continue to be diminished, almost absent on the right. Imaging review: Post-operative CT scan 07/24/22: L2/3 showed anterolithersis and continued canal stenosis. L5/S1 showed continued anterolithesis with no significant canal stenosis. This indicates no disease progression compared to MRI from June 2022. Impression: The patient previously reported severe pain down her right leg with increasing back pain and weakness, with some urinary incontinence. She now reports significant reduction of symptoms with no numbness or pain, and limited weakness. Dr. Yin previously recommended X-rays of her lumbar spine which were ordered but she did not yet have completed. She was encouraged to have them completed and informed we will review them and call her if there are any abnormalities. She was encouraged to reach out to our office as needed for follow up care. ? Thank you for allowing us to care for your patient. The total time spent with this visit with this patient was 45 minutes reviewing history, physical exam, CT / MRI imaging review, and implementation of treatment plan or further diagnostic testing Sean Yin MD,PhD [facility] Coding Level of Care Code Est Pt Level 5 (91554) Diagnoses Status post lumbar and lumbosacral fusion by anterior technique Z98.1 Time Spent (min) 45
== END 2022-10-09 16:58 | disposition home or self-care (01) ==
PROVIDERS: PCP Nurse Practitioner Family; Visit Provider Physician Assistant
DX: Z98.1 Arthrodesis status (principal)
CPT/HCPCS: 99215

== ENCOUNTER 2022-10-31 11:14 | Outpatient (REF) | payer MEDICARE, MEDICAID, SELFPAY ==
--- NOTE | ~2022-10-31 | XR_ITS ---
EXAMINATION: XR LUMBOSACRAL SPINE CLINICAL INFORMATION: Lower back pain status-post surgery. COMPARISON: Radiographs dated 06/25/2022. TECHNIQUE: AP and lateral views of the lumbosacral spine. FINDINGS: There is bony demineralization. There is a moderately severe thoracolumbar rotatory levoscoliosis. At L1-L2, there is moderately severe rightward disc space narrowing, with vacuum phenomenon. There is well-maintained alignment status-post L2-L3 posterior fusion and discectomy, with intact posterior fixator rods, pedicular screws and disc spacers. No hardware failure or loosening is seen. At L4-L5, there is mild posterior disc space narrowing and a 3 mm retrolisthesis. At L5-S1, there is a 2.0 cm, grade 2 anterolisthesis, with obliteration of the disc space. No acute fracture or spondylolisthesis is seen. There is multi-level lumbar facet arthropathy. There have been prior L4 and L5 spinal laminectomies. There are aortoiliac atherosclerotic calcifications. A left hip arthroplasty is noted. A spinal stimulator device is noted. XR/XR lumbar spine 2-3V IMPRESSION: 1. There is well-maintained alignment status-post L2-L3 posterior fusion and discectomies. No hardware failure or loosening is seen. 2. There is moderately severe degenerative disc disease at L1-L2, and marked degenerative disc disease is seen at L5-S1, with a grade 2 anterolisthesis. 3. There is a moderately severe thoracolumbar rotatory levoscoliosis.
== END 2022-10-31 11:15 | disposition home or self-care (01) ==
LOC: HO.XRAY 11:14
PROVIDERS: Visit Provider Neurological Surgery
DX: Z98.1 Arthrodesis status (principal)
CPT/HCPCS: 72100

== ENCOUNTER 2022-10-31 14:00 | Outpatient (RCR) | payer MEDICARE, MEDICAID, SELFPAY ==
--- NOTE | 2022-11-08 09:49 | MHC.PT.DC ---
[facility] [place] Office [place] Office [place] Office [address] Charlotte Pritchard [address] [phone] F: [phone] F: [phone] F: [phone] F: [phone] Physical Therapy Discharge Report Diagnosis: PRE-OP L2-3 OLLIF Date of Surgery: 08/06/22 Date of Evaluation: 08/01/22 Date of Discharge: 11/01/22 Treatments to Date: 8 Cancellations to Date: 0 No Shows to Date: 0 Discharge Status: Discharge Summary: DARRELL PROGRESSED WELL IN THERAPY AND HAS MET GOALS. SHE IS INDEPENDENT WITH CURRENT HEP. IS ABLE TO CONTINUE INDEPENDENTLY WITH HEP AND IS PURSUING PT CONSULT FOR KNEE PAIN EVALUATION. SHE HAS BEEN INSTRUCTED TO CONTACT US WITH ANY QUESTIONS OR CONCERNS. Electronically signed by: ENRRIQUE FOSS PT DPT Please sign and return to therapist. Thank you for your referral.
== END 2022-11-08 09:49 | disposition home or self-care (01) ==
LOC: HO.PT 14:00
PROVIDERS: PCP Nurse Practitioner Family; Visit Provider Physician Assistant
DX: M48.00 Spinal stenosis, site unspecified (principal)
CPT/HCPCS: 97110; 97140; 97162; 97530

== ENCOUNTER 2022-11-07 11:09 | Outpatient (AMB) | payer MEDICARE, MEDICAID, SELFPAY ==
--- NOTE | 2022-11-07 11:13 | MHC.OFFVIS ---
Intake Vital Signs 11/07/22 11:28 Height 5 ft 2 in Weight 129 lb BMI 23.6 BP 130/72 Blood Pressure Location Lt brachial Position Sitting Respiration 16 Pulse 65 Pulse Source Pulse Oximeter Pulse Oximetry (%) 97 Oxygen Delivery Method Room Air Intake Visit Reasons: ITDD Refill Intake Note: patient comes in for ITDD pain pump refill. Allergies amitriptyline Allergy (Severe, Verified 11/07/22 11:28) VIOLENCE diazepam [Valium] Allergy (Severe, Verified 11/07/22 11:28) SUICIDAL lorazepam Allergy (Severe, Verified 11/07/22 11:28) suicidal Penicillins Allergy (Severe, Verified 11/07/22 11:28) hives amoxicillin [Augmentin] Allergy (Intermediate, Verified 11/07/22 11:28) hives clavulanic acid [Augmentin] Allergy (Intermediate, Verified 11/07/22 11:28) hives meperidine [Demerol] Allergy (Intermediate, Verified 11/07/22 11:28) vomiting buprenorphine [From Belbuca] Adverse Reaction (Intermediate, Verified 11/07/22 11:28) hives bupivacaine Adverse Reaction (Verified 11/07/22 11:28) Involuntary Spasms HPI HPI Comments History of Present Illness Details Karrie is here today for intrathecal pain pump refill. She continues to refill with 2 mg of hydromorphone and 200 mcg of baclofen. She reports excellent mobility improved activities of daily living and she reports excellent social interactions. She reports very low level of pain. She have written a pleasant letter to hospital administration about the care she received in pain management center. ? She reports better mobility better activities of daily living better social interactions.? She enjoys activities outside she plans to attend the wedding.? ? Currently she is receiving 110 mcg of hydromorphone a day. On PTM dosing she receives 80 mcg of hydromorphone per event with corresponding doses of the baclofen. She was given a bridge bolus for 54 hours. Her new pump refill will be scheduled on 02/16/2023 [facility] Medical History (Updated 08/01/22 @ 13:50 by Keith Yin MD, PhD) ADD (attention deficit disorder) Asthma Cervical fusion syndrome Cervical vertebral fusion Chronic pain syndrome Depression Failed back syndrome of cervical spine Failed back syndrome, cervical Failed back syndrome, lumbar Failed back syndrome, thoracic Generalized anxiety disorder GERD (gastroesophageal reflux disease) HTN (hypertension) Hx of aluminum poisoning Hx of gastric ulcer Hyperhidrosis Hyperlipidemia Hypomagnesemia Hypothyroid Kidney stone Long QT syndrome Lupus Major depression Numbness Overweight Vitamin D deficiency Surgical History (Updated 08/28/22 @ 14:51 by Keith Yin MD, PhD) H/O carpal tunnel repair H/O cervical spinal arthrodesis H/O ovarian cystectomy H/O spinal fusion History of appendectomy History of arthroscopy of hip History of carpal tunnel release History of section History of cholecystectomy History of left hip replacement History of left knee replacement History of sphincterotomy of sphincter of Oddi History of total left hip replacement S/P cervical spinal fusion Status post lumbar spine operative procedure for decompression of spinal cord Social History Household Members: Children Household Members Other:: lives with daughter Housing: House Are you a primary childcare director to a significant other at home: No Do you presently have visiting nurse or other home services: Yes (LABOR CONTRACT ANALYST who comes in once weekly) Alcohol intake: never Patient Tobacco Use Status: Never used Tobacco Substance Use Type: Marijuana service: No Current occupational status: retired Review of Systems Const All systems reviewed & are unremarkable except as noted in HPI and below ENT Reports Normal hearing present Neuro Reports Normal hearing present, Denies Abnormal speech present and Denies confusion Psych Denies confusion Physical Exam Vital Signs: Last Vital Signs Pulse 65 11/07/22 11:28 Resp 16 11/07/22 11:28 BP 130/72 11/07/22 11:28 Pulse Ox 97 11/07/22 11:28 Oxygen Delivery Method Room Air 11/07/22 11:28 BMI result Body Mass Index 23.6 Const General: No confusion Nutritional Appearance: average body habitus Orientation/consciousness: No confusion Limitations: no limitations HEENT Head: Yes normocephalic and Yes atraumatic Ears: hearing grossly normal bilaterally Eyes General: appearance normal, both eyes and all related structures Eyelids: Yes eyelids normal Pupils: Equal, round and reactive pupils present EOM: EOMs intact bilaterally Neck Neck: Yes normal visual inspection and Yes no JVD Resp Effort & Inspection: normal respiratory effort, able to speak in complete sentences and no audible wheezes Cardio Jugular venous distension: no JVD Back/Spine/Pelvis Other: Multiple scars very well-healed are observed in the projection of lumbar spine midline incisions. Right upper buttock there is a linear scar from implantation of the pain pump. The scar is well-healed, inflammation is not observed. 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 Intrathecal pump refill. THE PATIENT CAME TODAY IN THE office FOR THE CHANGE OF THE MEDICATION IN her PAIN PUMP. The name and date of were verified and informed consent was obtained for the procedure. ?The pump was interrogated and the residual amount of fluid was found to be 2.2 mL. SHE WAS POSITIONED prone on the bed AND THE AREA OF THE INTRATHECAL PUMP WAS PREPPED WITH CHLORAPREP. The fenestrated drape was sterilely applied over the area of the pump. Sterile gloves were worn and of the aspiration system was assembled containing 2 in 22 gauge noncoring needle, the needle was connected to extension tubing which was connected to the 20 cc sterile syringe. The pain pump was palpated under the skin in the patient's right buttock area. The needle was inserted through the skin and the central plug of the pain pump and fluid was aspirated. The clear fluid was going into the syringe the total amount of the fluid was 3.6 mL .. After that a new batch? of medication was obtained which was containing hydromorphone in concentration 2000 micrograms/mL mixed with baclofen 200 micro g per mL. The admixture was made in 20 cc syringe prepared by [facility] compounding pharmacy. The syringe was connected to the bacterial filter, and then connected to the extension tubing. After that the medication in the syringe was slowly instilled into the pump with aspirations at 15 and 5 cc watt.? The pump was left at the previous settings but the concentrations will be increased. She was given 54 hours of bridge bolus. She will receive 80 mcg every 4 hours on demand 3 times a day after her bolus is over. (5) Spinal stenosis: Code(s): M48.00 - Spinal stenosis, site unspecified Plan Reports significant spasticity increasing with coughing and sneezing. Most likely secondary to lumbar spinal stenosis. I offered her oral baclofen for now to treat his spasticity with potential additional baclofen to the pain pump in the future starting from 60 micro g and follow-up with elevation of the doses. She tried magnesium in the past but it did not help her spasticity. Her next refill appointment is in August however we can invited her earlier if oral baclofen does not help her and refill the pump earlier. Coding Level of Care Code Est Pt Level 4 (16403) Procedure Only Diagnoses Failed back syndrome, cervical M96.1 Chronic pain syndrome G89.4 Cervical fusion syndrome Q76.1 Failed back syndrome, lumbar M96.1 Spinal stenosis M48.00
[2022-11-07 11:28] VITALS: BP 130/72; PULSE 65; RESP 16; O2SAT 97; BMI 23.6
== END 2022-11-07 11:37 | disposition home or self-care (01) ==
PROVIDERS: PCP Nurse Practitioner Family; Visit Provider Anesthesiology
DX: M96.1 Postlaminectomy syndrome, not elsewhere classified (principal); G89.4 Chronic pain syndrome; Q76.1 Klippel-Feil syndrome; Z45.1 Encounter for adjustment and management of infusion pump; M48.00 Spinal stenosis, site unspecified
CPT/HCPCS: 62370

== ENCOUNTER → 2022-11-07 11:09 | Outpatient (BNVA) | payer MEDICARE, MEDICAID, SELFPAY | PROVIDERS: PCP Nurse Practitioner Family; Visit Provider Anesthesiology | DX: Z45.1 Encounter for adjustment and management of infusion pump (principal); G89.4 Chronic pain syndrome; M96.1 Postlaminectomy syndrome, not elsewhere classified; Q76.1 Klippel-Feil syndrome | CPT/HCPCS: 62370 ==

== ENCOUNTER 2023-02-18 11:22 | Outpatient (AMB) | payer MEDICARE, MEDICAID, SELFPAY ==
--- NOTE | 2023-02-18 11:42 | A.OFFVIS_ITS ---
Intake Vital Signs 02/18/23 12:03 Height 5 ft 2 in Weight 134 lb 2 oz BMI 24.5 BP 150/70 H Blood Pressure Location Lt brachial Position Sitting Respiration 16 Pulse 102 H Pulse Source Pulse Oximeter Pulse Oximetry (%) 96 Oxygen Delivery Method Room Air Intake Visit Reasons: ITDD Refill/confirmed Allergies amitriptyline Allergy (Severe, Verified 02/18/23 12:05) VIOLENCE diazepam [Valium] Allergy (Severe, Verified 02/18/23 12:05) SUICIDAL lorazepam Allergy (Severe, Verified 02/18/23 12:05) suicidal Penicillins Allergy (Severe, Verified 02/18/23 12:05) hives amoxicillin [Augmentin] Allergy (Intermediate, Verified 02/18/23 12:05) hives clavulanic acid [Augmentin] Allergy (Intermediate, Verified 02/18/23 12:05) hives meperidine [Demerol] Allergy (Intermediate, Verified 02/18/23 12:05) vomiting buprenorphine [From Belbuca] Adverse Reaction (Intermediate, Verified 02/18/23 12:05) hives bupivacaine Adverse Reaction (Verified 02/18/23 12:05) Involuntary Spasms HPI HPI Comments History of Present Illness Details Karrie is here today for intrathecal pain pump refill. She continues to refill with 2 mg of hydromorphone and 200 mcg of baclofen. She reports excellent mobility improved activities of daily living and she reports excellent social interactions. She reports very low level of pain. She have written a pleasant letter to hospital administration about the care she received in pain management center. ? She reports better mobility better activities of daily living better social interactions.? She enjoys activities outside she plans to attend the wedding.? ? Currently she is receiving 110 mcg of hydromorphone a day. On PTM dosing she receives 80 mcg of hydromorphone per event with corresponding doses of the baclofen. She was given a bridge bolus for 54 hours. Her new pump refill will be scheduled on 02/16/2023 she also reports taking oral baclofen which helps her pain as well. [facility] Medical History (Updated 08/01/22 @ 13:50 by Keith Yin MD, PhD) Kidney stone Numbness Asthma Long QT syndrome Hx of aluminum poisoning Lupus Hx of gastric ulcer Depression GERD (gastroesophageal reflux disease) Failed back syndrome, cervical Chronic pain syndrome Cervical fusion syndrome Failed back syndrome, lumbar Cervical vertebral fusion Failed back syndrome, thoracic Vitamin D deficiency Hypomagnesemia Hypothyroid Hyperhidrosis ADD (attention deficit disorder) Generalized anxiety disorder Major depression Hyperlipidemia Overweight HTN (hypertension) Failed back syndrome of cervical spine Surgical History (Updated 08/28/22 @ 14:51 by Keith Yin MD, PhD) History of arthroscopy of hip History of sphincterotomy of sphincter of Oddi History of section H/O carpal tunnel repair History of total left hip replacement History of carpal tunnel release History of appendectomy H/O ovarian cystectomy Status post lumbar spine operative procedure for decompression of spinal cord H/O spinal fusion S/P cervical spinal fusion History of cholecystectomy History of left knee replacement History of left hip replacement H/O cervical spinal arthrodesis Social History Household Members: Children Household Members Other:: lives with daughter Housing: House Are you a primary progressive care manager to a significant other at home: No Do you presently have visiting nurse or other home services: Yes (BAN[employer] ATTENDANT who comes in once weekly) Alcohol intake: never Patient Tobacco Use Status: Never used Tobacco Substance Use Type: Marijuana service: No Current occupational status: retired Review of Systems Const All systems reviewed & are unremarkable except as noted in HPI and below ENT Reports Normal hearing present Neuro Reports Normal hearing present, Denies Abnormal speech present and Denies confusion Psych Denies confusion Physical Exam Vital Signs: Last Vital Signs Pulse 102 H 02/18/23 12:03 Resp 16 02/18/23 12:03 BP 150/70 H 02/18/23 12:03 Pulse Ox 96 02/18/23 12:03 Oxygen Delivery Method Room Air 02/18/23 12:03 BMI result Body Mass Index 24.5 Const General: No confusion Nutritional Appearance: average body habitus Orientation/consciousness: No confusion Limitations: no limitations HEENT Head: Yes normocephalic and Yes atraumatic Ears: hearing grossly normal bilaterally Eyes General: appearance normal, both eyes and all related structures Eyelids: Yes eyelids normal Pupils: Equal, round and reactive pupils present EOM: EOMs intact bilaterally Neck Neck: Yes normal visual inspection and Yes no JVD Resp Effort & Inspection: normal respiratory effort, able to speak in complete sentences and no audible wheezes Cardio Jugular venous distension: no JVD Back/Spine/Pelvis Other: Multiple scars very well-healed are observed in the projection of lumbar spine midline incisions. Right upper buttock there is a linear scar from implantation of the pain pump. The scar is well-healed, inflammation is not observed. 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 Intrathecal pump refill. THE PATIENT CAME TODAY IN THE office FOR THE CHANGE OF THE MEDICATION IN her PAIN PUMP. The name and date of were verified and informed consent was obt ained for the procedure. ?The pump was interrogated and the residual amount of fluid was found to be 1.7 mL. SHE WAS POSITIONED prone on the bed AND THE AREA OF THE INTRATHECAL PUMP WAS PREPPED WITH CHLORAPREP. The fenestrated drape was sterilely applied over the area of the pump. Sterile gloves were worn and of the aspiration system was assembled containing 2 in 22 gauge noncoring needle, the needle was connected to extension tubing which was connected to the 20 cc sterile syringe. The pain pump was palpated under the skin in the patient's right buttock area. The needle was inserted through the skin and the central plug of the pain pump and fluid was aspirated. The clear fluid was going into the syringe the total amount of the fluid was 2.4 mL .. After that a new batch? of medication was obtained which was containing hydromorphone in concentration 2000 micrograms/mL mixed with baclofen 200 micro g per mL. The admixture was made in 20 cc syringe prepared by [facility] compounding pharmacy. The syringe was connected to the bacterial filter, and then connected to the extension tubing. After that the medication in the syringe was slowly instilled into the pump with aspirations at 15 and 5 cc watt.? She refused to increase the concentration of the baclofen. She takes baclofen oral. She reports good relief of the spasticity with combination of bore baclofen and intrathecal baclofen. I do not mind. (5) Spinal stenosis: Code(s): M48.00 - Spinal stenosis, site unspecified Plan The level of pain is minimal patient reports good mobility activities of daily living and good social interactions. I will see her next at the pump refill again. Coding Level of Care Code Est Pt Level 3 (47594) Procedure Only Diagnoses Failed back syndrome, cervical M96.1 Chronic pain syndrome G89.4 Cervical fusion syndrome Q76.1 Failed back syndrome, lumbar M96.1 Spinal stenosis M48.00
[2023-02-18 12:03] VITALS: BP 150/70; PULSE 102; RESP 16; O2SAT 96; BMI 24.5
== END 2023-02-18 12:38 | disposition home or self-care (01) ==
PROVIDERS: PCP Nurse Practitioner Family; Visit Provider Anesthesiology
DX: G89.4 Chronic pain syndrome (principal); M96.1 Postlaminectomy syndrome, not elsewhere classified; Q76.1 Klippel-Feil syndrome; M48.00 Spinal stenosis, site unspecified; Z45.1 Encounter for adjustment and management of infusion pump
CPT/HCPCS: 95991; 99213

== ENCOUNTER → 2023-02-18 11:22 | Outpatient (BNVA) | payer MEDICARE, MEDICAID, SELFPAY | PROVIDERS: PCP Nurse Practitioner Family; Visit Provider Anesthesiology | DX: Z45.89 Encounter for adjustment and management of other implanted devices (principal); M96.1 Postlaminectomy syndrome, not elsewhere classified; M48.00 Spinal stenosis, site unspecified; Q76.1 Klippel-Feil syndrome; G89.4 Chronic pain syndrome | CPT/HCPCS: 99212 ==

== ENCOUNTER 2023-05-29 10:49 | Outpatient (AMB) | payer MEDICARE, MEDICAID, SELFPAY ==
--- NOTE | 2023-05-29 11:12 | MHC.OFFVIS ---
Intake Vital Signs 05/29/23 11:56 Height 5 ft 2 in Weight 133 lb BMI 24.3 BP 128/82 Blood Pressure Location Lt brachial Position Sitting Respiration 14 Pulse 100 Pulse Source Pulse Oximeter Pulse Oximetry (%) 96 Oxygen Delivery Method Room Air Intake Visit Reasons: ITDD Refill/LVM Intake Note: Patient comes in for intrathecal medication refill. Reports pain 3. Allergies amitriptyline Allergy (Severe, Verified 05/29/23 11:58) VIOLENCE diazepam [Valium] Allergy (Severe, Verified 05/29/23 11:58) SUICIDAL lorazepam Allergy (Severe, Verified 05/29/23 11:58) suicidal Penicillins Allergy (Severe, Verified 05/29/23 11:58) hives amoxicillin [Augmentin] Allergy (Intermediate, Verified 05/29/23 11:58) hives clavulanic acid [Augmentin] Allergy (Intermediate, Verified 05/29/23 11:58) hives meperidine [Demerol] Allergy (Intermediate, Verified 05/29/23 11:58) vomiting buprenorphine [From Belbuca] Adverse Reaction (Intermediate, Verified 05/29/23 11:58) hives bupivacaine Adverse Reaction (Verified 05/29/23 11:58) Involuntary Spasms HPI HPI Comments History of Present Illness Details Karrie is here today for intrathecal pain pump refill. She continues to refill with 2 mg of hydromorphone and 200 mcg of baclofen. She reports excellent mobility improved activities of daily living and she reports excellent social interactions. She reports very low level of pain. She reports some minor pain in bilateral toes I recommend her to address this issue to local car repair supervisor. She reports better mobility better activities of daily living better social interactions.? She enjoys activities outside she plans to attend the wedding.? ? Currently she is receiving 110 mcg of hydromorphone a day. On PTM dosing she receives 80 mcg of hydromorphone per event with corresponding doses of the baclofen. She was given a bridge bolus for 54 hours. Her new pump refill will be scheduled on 09/05/2023 she also reports taking oral baclofen which helps her pain as well. She have written a pleasant letter to hospital administration about the care she received in pain management center. [facility] Medical History (Updated 08/01/22 @ 13:50 by Keith Yin MD, PhD) Kidney stone Numbness Asthma Long QT syndrome Hx of aluminum poisoning Lupus Hx of gastric ulcer Depression GERD (gastroesophageal reflux disease) Failed back syndrome, cervical Chronic pain syndrome Cervical fusion syndrome Failed back syndrome, lumbar Cervical vertebral fusion Failed back syndrome, thoracic Vitamin D deficiency Hypomagnesemia Hypothyroid Hyperhidrosis ADD (attention deficit disorder) Generalized anxiety disorder Major depression Hyperlipidemia Overweight HTN (hypertension) Failed back syndrome of cervical spine Surgical History (Updated 08/28/22 @ 14:51 by Keith Yin MD, PhD) History of arthroscopy of hip History of sphincterotomy of sphincter of Oddi History of section H/O carpal tunnel repair History of total left hip replacement History of carpal tunnel release History of appendectomy H/O ovarian cystectomy Status post lumbar spine operative procedure for decompression of spinal cord H/O spinal fusion S/P cervical spinal fusion History of cholecystectomy History of left knee replacement History of left hip replacement H/O cervical spinal arthrodesis Social History Household Members: Children Household Members Other:: lives with daughter Housing: House Are you a primary hospice care consultant to a significant other at home: No Do you presently have visiting nurse or other home services: Yes ([employer]ICAL INSTRUMENTS SUPERVISOR who comes in once weekly) Alcohol intake: never Patient Tobacco Use Status: Never used Tobacco Substance Use Type: Marijuana service: No Current occupational status: retired Review of Systems Const All systems reviewed & are unremarkable except as noted in HPI and below ENT Reports Normal hearing present Neuro Reports Normal hearing present, Denies Abnormal speech present and Denies confusion Psych Denies confusion Physical Exam Const General: No confusion Nutritional Appearance: average body habitus Orientation/consciousness: No confusion Limitations: no limitations HEENT Head: Yes normocephalic and Yes atraumatic Ears: hearing grossly normal bilaterally Eyes General: appearance normal, both eyes and all related structures Eyelids: Yes eyelids normal Pupils: Equal, round and reactive pupils present EOM: EOMs intact bilaterally Neck Neck: Yes normal visual inspection and Yes no JVD Resp Effort & Inspection: normal respiratory effort, able to speak in complete sentences and no audible wheezes Cardio Jugular venous distension: no JVD Back/Spine/Pelvis Other: Multiple scars very well-healed are observed in the projection of lumbar spine midline incisions. Right upper buttock there is a linear scar from implantation of the pain pump. The scar is well-healed, inflammation is not observed. 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 Intrathecal pump refill. THE PATIENT CAME TODAY IN THE office FOR THE CHANGE OF THE MEDICATION IN her PAIN PUMP. The name and date of were verified and informed consent was obtained for the procedure. ?The pump was interrogated and the residual amount of fluid was found to be 2.2 mL. SHE WAS POSITIONED prone on the bed AND THE AREA OF THE INTRATHECAL PUMP WAS PREPPED WITH CHLORAPREP. The fenestrated drape was sterilely applied over the area of the pump. Sterile gloves were worn and of the aspiration system was assembled containing 2 in 22 gauge noncoring needle, the needle was connected to extension tubing which was connected to the 20 cc sterile syringe. The pain pump was palpated under the skin in the patient's right buttock area. The needle was inserted through the skin and the central plug of the pain pump and fluid was aspirated. The clear fluid was going into the syringe the total amount of the fluid was 3.0 mL .. After that a new batch? of medication was obtained which was containing hydromorphone in concentration 2000 micrograms/mL mixed with baclofen 200 micro g per mL. The admixture was made in 20 cc syringe prepared by [facility] compounding pharmacy. The syringe was connected to the bacterial filter, and then connected to the extension tubing. After that the medication in the syringe was slowly instilled into the pump with aspirations at 15 and 5 cc watt.? She refused to increase the concentration of the baclofen. She takes baclofen oral. She reports good relief of the spasticity with combination of bore baclofen and intrathecal baclofen. (5) Spinal stenosis: Code(s): M48.00 - Spinal stenosis, site unspecified Plan The level of pain is minimal patient reports good mobility activities of daily living and good social interactions. I will see her next at the pump refill again. Next pump refill is scheduled for 08/28/2023. Coding Level of Care Code Est Pt Level 3 (21309) Procedure Only Diagnoses Failed back syndrome, cervical M96.1 Chronic pain syndrome G89.4 Cervical fusion syndrome Q76.1 Failed back syndrome, lumbar M96.1 Spinal stenosis M48.00
[2023-05-29 11:56] VITALS: BP 128/82; PULSE 100; RESP 14; O2SAT 96; BMI 24.3
== END 2023-05-29 11:33 | disposition home or self-care (01) ==
PROVIDERS: PCP Nurse Practitioner Family; Visit Provider Anesthesiology
DX: M96.1 Postlaminectomy syndrome, not elsewhere classified (principal); G89.4 Chronic pain syndrome; Q76.1 Klippel-Feil syndrome; M48.00 Spinal stenosis, site unspecified; Z45.1 Encounter for adjustment and management of infusion pump
CPT/HCPCS: 95991; 99213

== ENCOUNTER → 2023-05-29 10:49 | Outpatient (BNVA) | payer MEDICARE, MEDICAID, SELFPAY | PROVIDERS: PCP Nurse Practitioner Family; Visit Provider Anesthesiology | DX: M96.1 Postlaminectomy syndrome, not elsewhere classified (principal); G89.4 Chronic pain syndrome; Q76.1 Klippel-Feil syndrome; M48.00 Spinal stenosis, site unspecified; Z45.1 Encounter for adjustment and management of infusion pump; Z79.899 Other long term (current) drug therapy | CPT/HCPCS: 99212 ==

== ENCOUNTER 2023-08-28 10:58 | Outpatient (AMB) | payer MEDICARE, MEDICAID, SELFPAY ==
[2023-08-28 11:18] VITALS: BP 116/70; PULSE 94; RESP 14; O2SAT 98; BMI 24.4
--- NOTE | 2023-08-28 11:18 | MHC.OFFVIS ---
Vital Signs 08/28/23 11:18 Height 5 ft 2 in Weight 133 lb 8 oz BMI 24.4 BP 116/70 Blood Pressure Location Lt brachial Position Sitting Respiration 14 Pulse 94 Pulse Source Pulse Oximeter Pulse Oximetry (%) 98 Oxygen Delivery Method Room Air Intake Visit Reasons: ITDD REFILL Intake Note: Patient comes in for intrathecal medication refill. Reports pain 04/27. Allergies amitriptyline Allergy (Severe, Verified 08/28/23 11:18) VIOLENCE diazepam [Valium] Allergy (Severe, Verified 08/28/23 11:18) SUICIDAL lorazepam Allergy (Severe, Verified 08/28/23 11:18) suicidal Penicillins Allergy (Severe, Verified 08/28/23 11:18) hives amoxicillin [Augmentin] Allergy (Intermediate, Verified 08/28/23 11:18) hives clavulanic acid [Augmentin] Allergy (Intermediate, Verified 08/28/23 11:18) hives meperidine [Demerol] Allergy (Intermediate, Verified 08/28/23 11:18) vomiting buprenorphine [From Belbuca] Adverse Reaction (Intermediate, Verified 08/28/23 11:18) hives bupivacaine Adverse Reaction (Verified 08/28/23 11:18) Involuntary Spasms HPI Comments Details: Karrie is here today for intrathecal pain pump refill. She continues to refill with 2 mg of hydromorphone and 200 mcg of baclofen. She reports excellent mobility improved activities of daily living and she reports excellent social interactions. She reports very low level of pain. She reports bilateral lower extremity spasticity since onset of the summer. It may be related to the electrolytes disc balance. I recommended her to take magnesium OTC I also will increase baclofen to 400 micro g per mL her next refill. The refill of the pain pump procedure reported as below. ? Currently she is receiving 110 mcg of hydromorphone a day. On PTM dosing she receives 80 mcg of hydromorphone per event with corresponding doses of the baclofen. Her new pump refill will be scheduled on 11/17/2023 she also reports taking oral baclofen which helps her pain as well. She have written a pleasant letter to hospital administration about the care she received in pain management center. [facility] Medical History (Updated 08/01/22 @ 13:50 by Keith Yin MD, PhD) Kidney stone Numbness Asthma Long QT syndrome Hx of aluminum poisoning Lupus Hx of gastric ulcer Depression GERD (gastroesophageal reflux disease) Failed back syndrome, cervical Chronic pain syndrome Cervical fusion syndrome Failed back syndrome, lumbar Cervical vertebral fusion Failed back syndrome, thoracic Vitamin D deficiency Hypomagnesemia Hypothyroid Hyperhidrosis ADD (attention deficit disorder) Generalized anxiety disorder Major depression Hyperlipidemia Overweight HTN (hypertension) Failed back syndrome of cervical spine Surgical History (Updated 08/28/22 @ 14:51 by Keith Yin MD, PhD) History of arthroscopy of hip History of sphincterotomy of sphincter of Oddi History of section H/O carpal tunnel repair History of total left hip replacement History of carpal tunnel release History of appendectomy H/O ovarian cystectomy Status post lumbar spine operative procedure for decompression of spinal cord H/O spinal fusion S/P cervical spinal fusion History of cholecystectomy History of left knee replacement History of left hip replacement H/O cervical spinal arthrodesis Social History Household Members: Children Household Members Other:: lives with daughter Housing: House Are you a primary healthcare advisory services manager to a significant other at home: No Do you presently have visiting nurse or other home services: Yes (ENVIRONMENTAL RESEARCH SCIENTIST who comes in once weekly) Alcohol intake: never Patient Tobacco Use Status: Never used Tobacco Substance Use Type: Marijuana service: No Current occupational status: retired Review of Systems Const All systems reviewed & are unremarkable except as noted in HPI and below ENT Reports Normal hearing present Neuro Reports Normal hearing present, Denies Abnormal speech present and Denies confusion Psych Denies confusion Physical Exam Vital Signs: Last Vital Signs Pulse 94 08/28/23 11:18 Resp 14 08/28/23 11:18 BP 116/70 08/28/23 11:18 Pulse Ox 98 08/28/23 11:18 Oxygen Delivery Method Room Air 08/28/23 11:18 BMI result Body Mass Index 24.4 Const General: No confusion Nutritional Appearance: average body habitus Orientation/consciousness: No confusion Limitations: no limitations HEENT Head: Yes normocephalic and Yes atraumatic Ears: hearing grossly normal bilaterally Eyes General: appearance normal, both eyes and all related structures Eyelids: Yes eyelids normal Pupils: Equal, round and reactive pupils present EOM: EOMs intact bilaterally Neck Neck: Yes normal visual inspection and Yes no JVD Resp Effort & Inspection: normal respiratory effort, able to speak in complete sentences and no audible wheezes Cardio Jugular venous distension: no JVD Back/Spine/Pelvis Other: Multiple scars very well-healed are observed in the projection of lumbar spine midline incisions. Right upper buttock there is a linear scar from implantation of the pain pump. The scar is well-healed, inflammation is not observed. Neuro General: No confusion Cranial nerves: Yes Equal, round and reactive pupils present and Yes Normal hearing present Speech: No Abnormal speech present Assessment & Plan Assessment & Plan (1) Failed back syndrome, cervical: Code(s): M96.1 - Postlaminectomy syndrome, not elsewhere classified Category: Medical (2) Chronic pain syndrome: Comment: medtronic intrathecal pump posterior right hip Code(s): G89.4 - Chronic pain syndrome Category: Medical (3) Cervical fusion syndrome: Code(s): 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 Intrathecal pump refill. THE PATIENT CAME TODAY IN THE office FOR THE CHANGE OF THE MEDICATION IN her PAIN PUMP. The name and date of were verified and informed consent was obtained for the procedure. ?The pump was interrogated and the residual amount of fluid was found to be 3.7 mL. SHE WAS POSITIONED prone on the bed AND THE AREA OF THE INTRATHECAL PUMP WAS PREPPED WITH CHLORAPREP. The fenestrated drape was sterilely applied over the area of the pump. Sterile gloves were worn and of the aspiration system was assembled containing 2 in 22 gauge noncoring needle, the needle was connected to extension tubing which was connected to the 20 cc sterile syringe. The pain pump was palpated under the skin in the patient's right buttock area. The needle was inserted through the skin and the central plug of the pain pump and fluid was aspirated. The clear fluid was going into the syringe the total amount of the fluid was 4.1 mL .. After that a new batch? of medication was obtained which was containing hydromorphone in concentration 2000 micrograms/mL mixed with baclofen 200 micro g per mL. The admixture was made in 20 cc syringe prepared by [facility] compounding pharmacy. The syringe was connected to the bacterial filter, and then connected to the extension tubing. After that the medication in the syringe was slowly instilled into the pump with aspirations at 15 and 5 cc watt.? She agreed next time to increase baclofen to 400 micro g per mL this will double her dose of the baclofen per day. (5) Spinal stenosis: Code(s): M48.00 - Spinal stenosis, site unspecified Category: Medical Plan The level of pain is minimal patient reports good mobility activities of daily living and good social interactions. I will see her next at the pump refill again. Next pump refill is scheduled for 11/17/2023. Coding Level of Care Code Est Pt Level 3 (98052) Procedure Only Diagnoses Failed back syndrome, cervical M96.1 Chronic pain syndrome G89.4 Cervical fusion syndrome Q76.1 Failed back syndrome, lumbar M96.1 Spinal stenosis M48.00
== END 2023-08-28 11:30 | disposition home or self-care (01) ==
PROVIDERS: PCP Nurse Practitioner Family; Visit Provider Anesthesiology
DX: M96.1 Postlaminectomy syndrome, not elsewhere classified (principal); G89.4 Chronic pain syndrome; Q76.1 Klippel-Feil syndrome; M48.00 Spinal stenosis, site unspecified; Z45.1 Encounter for adjustment and management of infusion pump
CPT/HCPCS: 95991; 99213

== ENCOUNTER → 2023-08-28 10:58 | Outpatient (BNVA) | payer MEDICARE, MEDICAID, SELFPAY | PROVIDERS: PCP Nurse Practitioner Family; Visit Provider Anesthesiology | DX: Z45.89 Encounter for adjustment and management of other implanted devices (principal); M96.1 Postlaminectomy syndrome, not elsewhere classified; M48.00 Spinal stenosis, site unspecified; Q76.1 Klippel-Feil syndrome; G89.4 Chronic pain syndrome | CPT/HCPCS: 99212 ==

== ENCOUNTER 2023-11-11 09:13 | Outpatient (AMB) | payer MEDICARE, MEDICAID, SELFPAY ==
--- NOTE | 2023-11-11 09:30 | A.OFFVIS_ITS ---
Vital Signs 11/11/23 09:32 Height 5 ft 2 in Weight 133 lb BMI 24.3 BP 140/91 H Blood Pressure Location Lt brachial Position Sitting Respiration 14 Pulse 75 Pulse Source Pulse Oximeter Pulse Oximetry (%) 98 Oxygen Delivery Method Room Air Intake Visit Reasons: ITDD REFILL Allergies amitriptyline Allergy (Severe, Verified 11/11/23 09:41) VIOLENCE diazepam [Valium] Allergy (Severe, Verified 11/11/23 09:41) SUICIDAL lorazepam Allergy (Severe, Verified 11/11/23 09:41) suicidal Penicillins Allergy (Severe, Verified 11/11/23 09:41) hives amoxicillin [Augmentin] Allergy (Intermediate, Verified 11/11/23 09:41) hives clavulanic acid [Augmentin] Allergy (Intermediate, Verified 11/11/23 09:41) hives meperidine [Demerol] Allergy (Intermediate, Verified 11/11/23 09:41) vomiting buprenorphine [From Belbuca] Adverse Reaction (Intermediate, Verified 11/11/23 09:41) hives bupivacaine Adverse Reaction (Verified 11/11/23 09:41) Involuntary Spasms Medication List - Last Reconciled 11/11/23 by Makayla Sung LPN amlodipine 10 mg PO BEDTIME aripiprazole 2 mg PO BEDTIME [[place] Thyroid 120 mg PO DAILY] baclofen 10 mg PO Q6H PRN 30 days MDD 3 pills buspirone 15 mg PO BEDTIME docusate sodium (Colace) 100 mg PO BID fluoxetine 80 mg PO BEDTIME gabapentin 600 mg PO TID hydromorphone (Dilaudid) 1-2 tabs po q4 hours prn pain Partial Fill upon patient request. labetalol 1 tab PO BID loratadine 10 mg PO DAILY PRN methylphenidate HCl 20 mg PO QID naloxone 4 mg/actuation (Narcan) 4 mg intranasal Q2M PRN omeprazole 1 cap PO DAILY ondansetron HCl 4 mg PO Q8H PRN 5 days HPI HPI ITDD REFILL: Details: 67-year-old female who presents today to the office for a ITDD refill. Denies any recent cough, cold, infection, fever or other significant changes in medical history since last office visit.? [facility] Medical History (Updated 08/01/22 @ 13:50 by Keith Yin MD, PhD) Kidney stone Numbness Asthma Long QT syndrome Hx of aluminum poisoning Lupus Hx of gastric ulcer Depression GERD (gastroesophageal reflux disease) Failed back syndrome, cervical Chronic pain syndrome Cervical fusion syndrome Failed back syndrome, lumbar Cervical vertebral fusion Failed back syndrome, thoracic Vitamin D deficiency Hypomagnesemia Hypothyroid Hyperhidrosis ADD (attention deficit disorder) Generalized anxiety disorder Major depression Hyperlipidemia Overweight HTN (hypertension) Failed back syndrome of cervical spine Surgical History (Updated 08/28/22 @ 14:51 by Keith Yin MD, PhD) History of arthroscopy of hip History of sphincterotomy of sphincter of Oddi History of section H/O carpal tunnel repair History of total left hip replacement History of carpal tunnel release History of appendectomy H/O ovarian cystectomy Status post lumbar spine operative procedure for decompression of spinal cord H/O spinal fusion S/P cervical spinal fusion History of cholecystectomy History of left knee replacement History of left hip replacement H/O cervical spinal arthrodesis Social History Household Members: Children Household Members Other:: lives with daughter Housing: House Are you a primary post acute care nurse practitioner to a significant other at home: No Do you presently have visiting nurse or other home services: Yes ([employer] who comes in once weekly) Alcohol intake: never Patient Tobacco Use Status: Never used Tobacco Substance Use Type: Marijuana service: No Current occupational status: retired Review of Systems Const All systems reviewed & are unremarkable except as noted in HPI and below Physical Exam Vital Signs: Last Vital Signs Pulse 75 11/11/23 09:32 Resp 14 11/11/23 09:32 BP 140/91 H 11/11/23 09:32 Pulse Ox 98 11/11/23 09:32 Oxygen Delivery Method Room Air 11/11/23 09:32 BMI result Body Mass Index 24.3 General: Appears afebrile. Alert and oriented. Mood and affect appropriate. Follows and participates in conversation appropriately. Respiratory effort is unlabored. Able to transition from sit to stand unassisted. Ambulates with bilaterally normal heel strike and toe off. Office Procedures Details: Intra-thecal Pump Refill The name and date of were verified, and informed consent was obtained for the procedure. The pump was interrogated, and the residual amount of fluid was found to be 6.5 mL. Patient was positioned prone on the bed and the area of the intrathecal pump was prepped with chloraprep. The fenestrated drape was sterilely applied over the area of the pump. Sterile gloves were worn and the aspiration system was assembled containing 2 22-gauge noncoring needle; the needle was connected to extension tubing which was connected to the 20-cc sterile syringe. The extension tubing was clamped. The pain pump was palpated under the skin in the patient's buttock. The needle was inserted through the skin and the central plug of the pain pump and fluid was aspirated. 6.5 mL of clear fluid were aspirated. After that, a new batch of medication was obtained. The admixture was premixed in a 20cc syringe by [facility] compounding pharmacy. The syringe was connected to the bacterial filter, and then connected to the extension tubing. After that, the medication in the syringe was slowly instilled into the pump with aspirations. 20ML of hydromorphine, 2 milligrams per mL and Baclofen 200 mcg per mL was injected. No changes were made to the pump settings. The details of this program are available in the pump log that was saved and uploaded to the EMR. 09618 - Refill Procedure code (CPT) selection complete Results Reviewed Results Reviewed: No imaging is available for review. Assessment & Plan Assessment & Plan (1) Chronic pain syndrome: Comment: medtronic intrathecal pump posterior right hip Code(s): G89.4 - Chronic pain syndrome Category: Medical Plan Patient is status post ITDD refill. Patient tolerated procedure well and was discharged home in stable condition with discharge instructions.? All questions were answered. She will follow-up in as needed. Scribed for Dr. Verduzco by Keven Simon certified medical technician, on 11/11/2023. I, Dr. Verduzco, have personally reviewed and agree with the information entered by the scribe. Coding Level of Care Code Procedure Only Diagnoses Chronic pain syndrome G89.4 CPT Codes Intraethecal Drug Delivery System - CPT: 35558 - Refill ([id number])
[2023-11-11 09:32] VITALS: BP 140/91; PULSE 75; RESP 14; O2SAT 98; BMI 24.3
== END 2023-11-11 09:47 | disposition home or self-care (01) ==
PROVIDERS: PCP Nurse Practitioner Family; Visit Provider Internal Medicine
DX: Z45.1 Encounter for adjustment and management of infusion pump (principal); G89.4 Chronic pain syndrome
CPT/HCPCS: 95991

== ENCOUNTER → 2023-11-11 09:13 | Outpatient (BNVA) | payer MEDICARE, MEDICAID, SELFPAY | PROVIDERS: PCP Nurse Practitioner Family; Visit Provider Internal Medicine ==

== ENCOUNTER 2024-02-06 10:53 | Outpatient (AMB) | payer MEDICARE, MEDICAID, SELFPAY ==
[2024-02-06 11:07] VITALS: BP 115/70; PULSE 104; RESP 17; O2SAT 97; BMI 24.3
--- NOTE | 2024-02-06 11:07 | A.OFFVIS_ITS ---
Vital Signs 02/06/24 11:07 Height 5 ft 2 in Weight 133 lb BMI 24.3 BP 115/70 Blood Pressure Location Lt brachial Position Sitting Respiration 17 Pulse 104 H Pulse Source Pulse Oximeter Pulse Oximetry (%) 97 Oxygen Delivery Method Room Air Intake Visit Reasons: ITDD REFILL Intake Note: Patient comes in for intrathecal medication refill. Reports pain 0/10. Allergies amitriptyline Allergy (Severe, Verified 02/06/24 11:08) VIOLENCE diazepam [Valium] Allergy (Severe, Verified 02/06/24 11:08) SUICIDAL lorazepam Allergy (Severe, Verified 02/06/24 11:08) suicidal Penicillins Allergy (Severe, Verified 02/06/24 11:08) hives amoxicillin [Augmentin] Allergy (Intermediate, Verified 02/06/24 11:08) hives clavulanic acid [Augmentin] Allergy (Intermediate, Verified 02/06/24 11:08) hives meperidine [Demerol] Allergy (Intermediate, Verified 02/06/24 11:08) vomiting buprenorphine [From Belbuca] Adverse Reaction (Intermediate, Verified 02/06/24 11:08) hives bupivacaine Adverse Reaction (Verified 02/06/24 11:08) Involuntary Spasms HPI Comments Details: Karrie is here today for intrathecal pain pump refill. She came today to receive new admixture of the medication hydromorphone 2000 micro g per mL and baclofen 400 micro g per mL. She is very satisfied with her regimen. She enjoys current doses of the medication. The escalation of the baclofen was explained to the patient. Side effects were explained to the patient. ? Currently she is receiving 110 mcg of hydromorphone a day. On PTM dosing she receives 80 mcg of hydromorphone per event with corresponding doses of the baclofen. Her new pump refill scheduled in the end of April, she may stop taking her oral baclofen at this time. . She reports excellent mobility improved activities of daily living and she reports excellent social interactions. She reports very low level of pain. She reports bilateral lower extremity spasticity since onset of the summer. She have written a pleasant letter to hospital administration about the care she received in pain management center. [facility], [facility] Medical History (Updated 08/01/22 @ 13:50 by Keith Yin MD, PhD) Kidney stone Numbness Asthma Long QT syndrome Hx of aluminum poisoning Lupus Hx of gastric ulcer Depression GERD (gastroesophageal reflux disease) Failed back syndrome, cervical Chronic pain syndrome Cervical fusion syndrome Failed back syndrome, lumbar Cervical vertebral fusion Failed back syndrome, thoracic Vitamin D deficiency Hypomagnesemia Hypothyroid Hyperhidrosis ADD (attention deficit disorder) Generalized anxiety disorder Major depression Hyperlipidemia Overweight HTN (hypertension) Failed back syndrome of cervical spine Surgical History (Updated 08/28/22 @ 14:51 by Keith Yin MD, PhD) History of arthroscopy of hip History of sphincterotomy of sphincter of Oddi History of section H/O carpal tunnel repair History of total left hip replacement History of carpal tunnel release History of appendectomy H/O ovarian cystectomy Status post lumbar spine operative procedure for decompression of spinal cord H/O spinal fusion S/P cervical spinal fusion History of cholecystectomy History of left knee replacement History of left hip replacement H/O cervical spinal arthrodesis Social History Household Members: Children Household Members Other:: lives with daughter Housing: House Are you a primary managed care director to a significant other at home: No Do you presently have visiting nurse or other home services: Yes ([employer] who comes in once weekly) Alcohol intake: never Patient Tobacco Use Status: Never used Tobacco Substance Use Type: Marijuana service: No Current occupational status: retired Review of Systems Const All systems reviewed & are unremarkable except as noted in HPI and below ENT Reports Normal hearing present Neuro Reports Normal hearing present, Denies Abnormal speech present and Denies confusion Psych Denies confusion Physical Exam Vital Signs: Last Vital Signs Pulse 104 H 02/06/24 11:07 Resp 17 02/06/24 11:07 BP 115/70 02/06/24 11:07 Pulse Ox 97 02/06/24 11:07 Oxygen Delivery Method Room Air 02/06/24 11:07 BMI result Body Mass Index 24.3 Const General: No confusion Nutritional Appearance: average body habitus Orientation/consciousness: No confusion Limitations: no limitations HEENT Head: Yes normocephalic and Yes atraumatic Ears: hearing grossly normal bilaterally Eyes General: appearance normal, both eyes and all related structures Eyelids: Yes eyelids normal Pupils: Equal, round and reactive pupils present EOM: EOMs intact bilaterally Neck Neck: Yes normal visual inspection and Yes no JVD Resp Effort & Inspection: normal respiratory effort, able to speak in complete sentences and no audible wheezes Cardio Jugular venous distension: no JVD Back/Spine/Pelvis Other: Multiple scars very well-healed are observed in the projection of lumbar spine midline incisions. Right upper buttock there is a linear scar from implantation of the pain pump. The scar is well-healed, inflammation is not observed. Neuro General: No confusion Cranial nerves: Yes Equal, round and reactive pupils present and Yes Normal hearing present Speech: No Abnormal speech present Assessment & Plan Assessment & Plan (1) Failed back syndrome, cervical: Code(s): M96.1 - Postlaminectomy syndrome, not elsewhere classified Category: Medical (2) Chronic pain syndrome: Comment: medtronic intrathecal pump posterior right hip Code(s): G89.4 - Chronic pain syndrome Category: Medical (3) Cervical fusion syndrome: Code(s): 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 Intrathecal pump refill. THE PATIENT CAME TODAY IN THE office FOR THE CHANGE OF THE MEDICATION IN her PAIN PUMP. The name and date of were verified and informed consent was obtained for the procedure. ?The pump was interrogated and the residual amount of fluid was found to be 4.9 mL. SHE WAS POSITIONED prone on the bed AND THE AREA OF THE INTRATHECAL PUMP WAS PREPPED WITH CHLORAPREP. The fenestrated drape was sterilely applied over the area of the pump. Sterile gloves were worn and of the aspiration system was assembled containing 2 in 22 gauge noncoring needle, the needle was connected to extension tubing which was connected to the 20 cc sterile syringe. The pain pump was palpated under the skin in the patient's right buttock area. The needle was inserted through the skin and the central plug of the pain pump and fluid was aspirated. The clear fluid was going into the syringe the total amount of the fluid was 4.9 mL .. After that a new batch? of medication was obtained which was containing hydromorphone in concentration 2000 micrograms/mL mixed with baclofen 200 micro g per mL. The admixture was made in 20 cc syringe prepared by [facility] compounding pharmacy. The syringe was connected to the bacterial filter, and then connected to the extension tubing. After that the medication in the syringe was slowly instilled into the pump with aspirations at 15 and 5 cc watt.? New medication in the pain pump comprised of baclofen 400 micro g and hydr omorphone 2000 micro g she will continue to receive hydromorphone 110 micro g as well as baclofen 11 micro g a day. She will be able to administer herself PTM boluses of hydromorphone 80 micro g and baclofen 16 micro g over the course of 15 minutes up to 3 applications a day 1 bolus in 4 hours with lockout duration 4 hours. She will be administered bridge bolus for the next 67 hours. During the bridge bolus she will be receiving 250 micro g of hydromorphone a day with corresponding dose of baclofen. (5) Spinal stenosis: Code(s): M48.00 - Spinal stenosis, site unspecified Category: Medical Plan Next pump refill is in the April. I will see the patient that time. Coding Level of Care Code Est Pt Level 3 (03805) Procedure Only Diagnoses Failed back syndrome, cervical M96.1 Chronic pain syndrome G89.4 Cervical fusion syndrome Q76.1 Failed back syndrome, lumbar M96.1 Spinal stenosis M48.00
== END 2024-02-06 11:45 | disposition home or self-care (01) ==
PROVIDERS: PCP Nurse Practitioner Family; Visit Provider Anesthesiology
DX: M96.1 Postlaminectomy syndrome, not elsewhere classified (principal); G89.4 Chronic pain syndrome; Q76.1 Klippel-Feil syndrome; M48.00 Spinal stenosis, site unspecified; Z45.1 Encounter for adjustment and management of infusion pump
CPT/HCPCS: 95991; 99213

== ENCOUNTER → 2024-02-06 10:53 | Outpatient (BNVA) | payer MEDICARE, MEDICAID, SELFPAY | PROVIDERS: PCP Nurse Practitioner Family; Visit Provider Anesthesiology | DX: M96.1 Postlaminectomy syndrome, not elsewhere classified (principal); M48.00 Spinal stenosis, site unspecified; G89.4 Chronic pain syndrome; Q76.1 Klippel-Feil syndrome | CPT/HCPCS: 99212 ==

== ENCOUNTER 2024-05-13 10:54 | Outpatient (AMB) | payer MEDICARE, MEDICAID, SELFPAY ==
--- NOTE | 2024-05-13 11:13 | MHC.OFFVIS ---
Vital Signs 05/13/24 11:18 Height 5 ft 2 in Weight 129 lb BMI 23.6 BP 135/78 Blood Pressure Location Lt brachial Position Sitting Pulse 85 Pulse Source Pulse Oximeter Pulse Oximetry (%) 97 Oxygen Delivery Method Room Air Intake Visit Reasons: ITDD Refill Deck Hand Required: No Allergies amitriptyline Allergy (Severe, Verified 05/13/24 11:19) VIOLENCE diazepam [Valium] Allergy (Severe, Verified 05/13/24 11:19) SUICIDAL lorazepam Allergy (Severe, Verified 05/13/24 11:19) suicidal Penicillins Allergy (Severe, Verified 05/13/24 11:19) hives amoxicillin [Augmentin] Allergy (Intermediate, Verified 05/13/24 11:19) hives clavulanic acid [Augmentin] Allergy (Intermediate, Verified 05/13/24 11:19) hives meperidine [Demerol] Allergy (Intermediate, Verified 05/13/24 11:19) vomiting buprenorphine [From Belbuca] Adverse Reaction (Intermediate, Verified 05/13/24 11:19) hives bupivacaine Adverse Reaction (Verified 05/13/24 11:19) Involuntary Spasms Medication List - Last Reconciled 05/13/24 by Livia Rasmussen, CLINICAL STAFF EDUCATOR amlodipine 10 mg PO BEDTIME aripiprazole 2 mg PO BEDTIME [[place] Thyroid 120 mg PO DAILY] baclofen 10 mg PO Q6H PRN 30 days MDD 3 pills buspirone 15 mg PO BEDTIME docusate sodium (Colace) 100 mg PO BID fluoxetine 80 mg PO BEDTIME gabapentin 600 mg PO TID hydromorphone (Dilaudid) 1-2 tabs po q4 hours prn pain Partial Fill upon patient request. labetalol 1 tab PO BID loratadine 10 mg PO DAILY PRN methylphenidate HCl 20 mg PO QID naloxone 4 mg/actuation (Narcan) 4 mg intranasal Q2M PRN omeprazole 1 cap PO DAILY ondansetron HCl 4 mg PO Q8H PRN 5 days HPI Comments Details: Karrie is here today for intrathecal pain pump refill. She came today to receive new admixture of the medication hydromorphone 2000 micro g per mL and baclofen 400 micro g per mL. She is very satisfied with her regimen. She enjoys current doses of the medication. She have written a pleasant letter to hospital administration about the care she received in pain management center. [facility] Medical History (Updated 08/01/22 @ 13:50 by Keith Yin MD, PhD) Kidney stone Numbness Asthma Long QT syndrome Hx of aluminum poisoning Lupus Hx of gastric ulcer Depression GERD (gastroesophageal reflux disease) Failed back syndrome, cervical Chronic pain syndrome Cervical fusion syndrome Failed back syndrome, lumbar Cervical vertebral fusion Failed back syndrome, thoracic Vitamin D deficiency Hypomagnesemia Hypothyroid Hyperhidrosis ADD (attention deficit disorder) Generalized anxiety disorder Major depression Hyperlipidemia Overweight HTN (hypertension) Failed back syndrome of cervical spine Surgical History (Updated 08/28/22 @ 14:51 by Keith Yin MD, PhD) History of arthroscopy of hip History of sphincterotomy of sphincter of Oddi History of section H/O carpal tunnel repair History of total left hip replacement History of carpal tunnel release History of appendectomy H/O ovarian cystectomy Status post lumbar spine operative procedure for decompression of spinal cord H/O spinal fusion S/P cervical spinal fusion History of cholecystectomy History of left knee replacement History of left hip replacement H/O cervical spinal arthrodesis Social History Household Members: Children Household Members Other:: lives with daughter Housing: House Are you a primary career and guidance counselor to a significant other at home: No Do you presently have visiting nurse or other home services: Yes ([employer]CH[employer] who comes in once weekly) Alcohol intake: never Patient Tobacco Use Status: Never used Tobacco Substance Use Type: Marijuana service: No Current occupational status: retired Review of Systems Const All systems reviewed & are unremarkable except as noted in HPI and below ENT Reports Normal hearing present Neuro Reports Normal hearing present, Denies Abnormal speech present and Denies confusion Psych Denies confusion Physical Exam Vital Signs: Last Vital Signs Pulse 85 05/13/24 11:18 BP 135/78 05/13/24 11:18 Pulse Ox 97 05/13/24 11:18 Oxygen Delivery Method Room Air 05/13/24 11:18 BMI result Body Mass Index 23.6 Const General: No confusion Nutritional Appearance: average body habitus Orientation/consciousness: No confusion Limitations: no limitations HEENT Head: Yes normocephalic and Yes atraumatic Ears: hearing grossly normal bilaterally Eyes General: appearance normal, both eyes and all related structures Eyelids: Yes eyelids normal Pupils: Equal, round and reactive pupils present EOM: EOMs intact bilaterally Neck Neck: Yes normal visual inspection and Yes no JVD Resp Effort & Inspection: normal respiratory effort, able to speak in complete sentences and no audible wheezes Cardio Jugular venous distension: no JVD Back/Spine/Pelvis Other: Multiple scars very well-healed are observed in the projection of lumbar spine midline incisions. Right upper buttock there is a linear scar from implantation of the pain pump. The scar is well-healed, inflammation is not observed. Neuro General: No confusion Cranial nerves: Yes Equal, round and reactive pupils present and Yes Normal hearing present Speech: No Abnormal speech present Assessment & Plan Assessment & Plan (1) Failed back syndrome, cervical: Code(s): M96.1 - Postlaminectomy syndrome, not elsewhere classified Category: Medical (2) Chronic pain syndrome: Comment: medtronic intrathecal pump posterior right hip Code(s): G89.4 - Chronic pain syndrome Category: Medical (3) Cervical fusion syndrome: Code(s): 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 Intrathecal pump refill. THE PATIENT CAME TODAY IN THE office FOR THE CHANGE OF THE MEDICATION IN her PAIN PUMP. The name and date of were verified and informed consent was obtained for the procedure. ?The pump was interrogated and the residual amount of fluid was found to be 2.5mL. SHE WAS POSITIONED prone on the bed AND THE AREA OF THE INTRATHECAL PUMP WAS PREPPED WITH CHLORAPREP. The fenestrated drape was sterilely applied over the area of the pump. Sterile gloves were worn and of the aspiration system was assembled containing 2 in 22 gauge noncoring needle, the needle was connected to extension tubing which was connected to the 20 cc sterile syringe. The pain pump was palpated under the skin in the patient's right buttock area. The needle was inserted through the skin and the central plug of the pain pump and fluid was aspirated. The clear fluid was going into the syringe the total amount of the fluid was 3.1 mL .. After that a new batch? of medication was obtained which was containing hydromorphone in concentration 2000 micrograms/mL mixed with baclofen 200 micro g per mL. The admixture was made in 20 cc syringe prepared by [facility] compounding pharmacy. The syringe was connected to the bacterial filter, and then connected to the extension tubing. After that the medication in the syringe was slowly instilled into the pump with aspirations at 15 and 5 cc watt.? New medication in the pain pump comprised of baclofen 400 micro g and hydromorphone 2000 micro g she will continue to receive hydromorphone 110 micro g as well as baclofen 11 micro g a day. She will be able to administer herself PTM boluses of hydromorphone 80 micro g and baclofen 16 micro g over the course of 15 minutes up to 3 applications a day 1 bolus in 4 hours with lockout duration 4 hours. She will be administered bridge bolus for the next 67 hours. During the bridge bolus she will be receiving 250 micro g of hydromorphone a day with corresponding dose of baclofen. (5) Spinal stenosis: Code(s): M48.00 - Spinal stenosis, site unspecified Category: Medical Plan Next pump refill is in the 08/17/2024 I will see the patient that time. Coding Level of Care Code Est Pt Level 3 (35203) Procedure Only Diagnoses Failed back syndrome, cervical M96.1 Chronic pain syndrome G89.4 Cervical fusion syndrome Q76.1 Failed back syndrome, lumbar M96.1 Spinal stenosis M48.00
[2024-05-13 11:18] VITALS: BP 135/78; PULSE 85; O2SAT 97; BMI 23.6
== END 2024-05-13 11:36 | disposition home or self-care (01) ==
PROVIDERS: PCP Nurse Practitioner Family; Visit Provider Anesthesiology
DX: M96.1 Postlaminectomy syndrome, not elsewhere classified (principal); G89.4 Chronic pain syndrome; Q76.1 Klippel-Feil syndrome; M48.00 Spinal stenosis, site unspecified; Z45.1 Encounter for adjustment and management of infusion pump
CPT/HCPCS: 95991; 99213

== ENCOUNTER → 2024-05-13 10:54 | Outpatient (BNVA) | payer MEDICARE, MEDICAID, SELFPAY | PROVIDERS: PCP Nurse Practitioner Family; Visit Provider Anesthesiology | DX: Z45.1 Encounter for adjustment and management of infusion pump (principal); G89.4 Chronic pain syndrome; M96.1 Postlaminectomy syndrome, not elsewhere classified; M48.00 Spinal stenosis, site unspecified; Q76.1 Klippel-Feil syndrome | CPT/HCPCS: 99212 ==

== ENCOUNTER 2024-08-11 06:48 | Outpatient (REF) | payer MEDICARE, MEDICAID, SELFPAY | END 2024-08-11 06:49 | disposition home or self-care (01) | LOC: CF 06:48 | PROVIDERS: Visit Provider Anesthesiology | DX: Z45.1 Encounter for adjustment and management of infusion pump (principal); M96.1 Postlaminectomy syndrome, not elsewhere classified; G89.4 Chronic pain syndrome; Q76.1 Klippel-Feil syndrome | CPT/HCPCS: 62370 ==

== ENCOUNTER 2024-08-11 11:34 | Outpatient (AMB) | payer MEDICARE, MEDICAID, SELFPAY ==
[2024-08-11 11:40] VITALS: BP 127/85; PULSE 93; RESP 18; O2SAT 97
--- NOTE | 2024-08-11 11:40 | MHC.OFFVIS ---
Vital Signs 08/11/24 11:40 Weight 129 lb BP 127/85 Blood Pressure Location Lt brachial Position Sitting Respiration 18 Pulse 93 Pulse Source Pulse Oximeter Pulse Oximetry (%) 97 Oxygen Delivery Method Room Air Intake Visit Reasons: ITDD Refill Information Systems Technician Required: No Allergies amitriptyline Allergy (Severe, Verified 08/11/24 11:41) VIOLENCE diazepam [Valium] Allergy (Severe, Verified 08/11/24 11:41) SUICIDAL lorazepam Allergy (Severe, Verified 08/11/24 11:41) suicidal Penicillins Allergy (Severe, Verified 08/11/24 11:41) hives amoxicillin [Augmentin] Allergy (Intermediate, Verified 08/11/24 11:41) hives clavulanic acid [Augmentin] Allergy (Intermediate, Verified 08/11/24 11:41) hives meperidine [Demerol] Allergy (Intermediate, Verified 08/11/24 11:41) vomiting buprenorphine [From Belbuca] Adverse Reaction (Intermediate, Verified 08/11/24 11:41) hives bupivacaine Adverse Reaction (Verified 08/11/24 11:41) Involuntary Spasms PFSH Medical History (Updated 08/01/22 @ 13:50 by Keith Yin MD, PhD) Kidney stone Numbness Asthma Long QT syndrome Hx of aluminum poisoning Lupus Hx of gastric ulcer Depression GERD (gastroesophageal reflux disease) Failed back syndrome, cervical Chronic pain syndrome Cervical fusion syndrome Failed back syndrome, lumbar Cervical vertebral fusion Failed back syndrome, thoracic Vitamin D deficiency Hypomagnesemia Hypothyroid Hyperhidrosis ADD (attention deficit disorder) Generalized anxiety disorder Major depression Hyperlipidemia Overweight HTN (hypertension) Failed back syndrome of cervical spine Surgical History (Updated 08/28/22 @ 14:51 by Keith Yin MD, PhD) History of arthroscopy of hip History of sphincterotomy of sphincter of Oddi History of section H/O carpal tunnel repair History of total left hip replacement History of carpal tunnel release History of appendectomy H/O ovarian cystectomy Status post lumbar spine operative procedure for decompression of spinal cord H/O spinal fusion S/P cervical spinal fusion History of cholecystectomy History of left knee replacement History of left hip replacement H/O cervical spinal arthrodesis Social History Household Members: Children Household Members Other:: lives with daughter Housing: House Are you a primary manager care management to a significant other at home: No Do you presently have visiting nurse or other home services: Yes (CATHOLIC PRIEST who comes in once weekly) Alcohol intake: never Patient Tobacco Use Status: Never used Tobacco Substance Use Type: Marijuana service: No Current occupational status: retired Physical Exam Vital Signs: Last Vital Signs Pulse 93 08/11/24 11:40 Resp 18 08/11/24 11:40 BP 127/85 08/11/24 11:40 Pulse Ox 97 08/11/24 11:40 Oxygen Delivery Method Room Air 08/11/24 11:40 Assessment & Plan Assessment & Plan (1) Failed back syndrome, cervical: Code(s): M96.1 - Postlaminectomy syndrome, not elsewhere classified Category: Medical (2) Chronic pain syndrome: Comment: medtronic intrathecal pump posterior right hip Code(s): G89.4 - Chronic pain syndrome Category: Medical (3) Cervical fusion syndrome: Code(s): 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 Intrathecal pump refill. THE PATIENT CAME TODAY IN THE office FOR THE CHANGE OF THE MEDICATION IN her PAIN PUMP. The name and date of were verified and informed consent was obtained for the procedure. ?The pump was interrogated and the residual amount of fluid was found to be 4.1 mL. SHE WAS POSITIONED prone on the bed AND THE AREA OF THE INTRATHECAL PUMP WAS PREPPED WITH CHLORAPREP. The fenestrated drape was sterilely applied over the area of the pump. Sterile gloves were worn and of the aspiration system was assembled containing 2 in 22 gauge noncoring needle, the needle was connected to extension tubing which was connected to the 20 cc sterile syringe. The pain pump was palpated under the skin in the patient's right buttock area. The needle was inserted through the skin and the central plug of the pain pump and fluid was aspirated. The clear fluid was going into the syringe the total amount of the fluid was 5.0 mL .. After that a new batch? of medication was obtained which was containing hydromorphone in concentration 2000 micrograms/mL mixed with baclofen 200 micro g per mL. The admixture was made in 20 cc syringe prepared by [facility] compounding pharmacy. The syringe was connected to the bacterial filter, and then connected to the extension tubing. After that the medication in the syringe was slowly instilled into the pump with aspirations at 15 and 5 cc watt.? New medication in the pain pump comprised of baclofen 400 micro g and hydromorphone 2000 micro g she will continue to receive hydromorphone 110 micro g as well as baclofen 11 micro g a day. She will be able to administer herself PTM boluses of hydromorphone 80 micro g and baclofen 16 micro g over the course of 15 minutes up to 3 applications a day 1 bolus in 4 hours with lockout duration 4 hours. She will be administered bridge bolus for the next 67 hours. During the bridge bolus she will be receiving 250 micro g of hydromorphone a day with corresponding dose of baclofen. (5) Spinal stenosis: Code(s): M48.00 - Spinal stenosis, site unspecified Category: Medical Plan Next pump refill is in the 11/12/2024 Coding Level of Care Code Procedure Only Diagnoses Failed back syndrome, cervical M96.1 Chronic pain syndrome G89.4 Cervical fusion syndrome Q76.1 Failed back syndrome, lumbar M96.1 Spinal stenosis M48.00
== END 2024-08-11 11:57 | disposition home or self-care (01) ==
LOC: HO.PMCPRC 11:34
PROVIDERS: PCP Nurse Practitioner Family; Visit Provider Anesthesiology
DX: M96.1 Postlaminectomy syndrome, not elsewhere classified (principal); G89.4 Chronic pain syndrome; Q76.1 Klippel-Feil syndrome; M48.00 Spinal stenosis, site unspecified
CPT/HCPCS: 62370

== ENCOUNTER 2024-11-12 10:58 | Outpatient (AMB) | payer MEDICARE, MEDICAID, SELFPAY ==
[2024-11-12 11:17] VITALS: BP 132/83; PULSE 92; RESP 18; O2SAT 96
--- NOTE | 2024-11-12 11:17 | MHC.OFFVIS ---
Vital Signs 11/12/24 11:17 Weight 131 lb BP 132/83 Blood Pressure Location Lt brachial Respiration 18 Pulse 92 Pulse Oximetry (%) 96 Oxygen Delivery Method Room Air Intake Visit Reasons: ITDD Refill Commercial Painter Required: No Allergies amitriptyline Allergy (Severe, Verified 11/12/24 11:16) VIOLENCE diazepam (Valium) Allergy (Severe, Verified 11/12/24 11:16) SUICIDAL lorazepam Allergy (Severe, Verified 11/12/24 11:16) suicidal Penicillins Allergy (Severe, Verified 11/12/24 11:16) hives amoxicillin (Augmentin) Allergy (Intermediate, Verified 11/12/24 11:16) hives clavulanic acid (Augmentin) Allergy (Intermediate, Verified 11/12/24 11:16) hives meperidine (Demerol) Allergy (Intermediate, Verified 11/12/24 11:16) vomiting buprenorphine (From Belbuca) Adverse Reaction (Intermediate, Verified 11/12/24 11:16) hives bupivacaine Adverse Reaction (Verified 11/12/24 11:16) Involuntary Spasms HPI Comments Details: Karrie is here today for intrathecal pain pump refill. She came today to receive new admixture of the medication hydromorphone 2000 micro g per mL and baclofen 400 micro g per mL. She is very satisfied with her regimen. She enjoys current doses of the medication. She reports today pain 2/10, she reports excellent mobility, excellent activities of daily living, excellent social interaction. She is very satisfied with her treatment with intrathecal pain pump. She have written a pleasant letter to hospital administration about the care she received in pain management center. [facility] Medical History (Updated 08/01/22 @ 13:50 by Keith Yin MD, PhD) Kidney stone Numbness Asthma Long QT syndrome Hx of aluminum poisoning Lupus Hx of gastric ulcer Depression GERD (gastroesophageal reflux disease) Failed back syndrome, cervical Chronic pain syndrome Cervical fusion syndrome Failed back syndrome, lumbar Cervical vertebral fusion Failed back syndrome, thoracic Vitamin D deficiency Hypomagnesemia Hypothyroid Hyperhidrosis ADD (attention deficit disorder) Generalized anxiety disorder Major depression Hyperlipidemia Overweight HTN (hypertension) Failed back syndrome of cervical spine Surgical History (Updated 08/28/22 @ 14:51 by Keith Yin MD, PhD) History of arthroscopy of hip History of sphincterotomy of sphincter of Oddi History of section H/O carpal tunnel repair History of total left hip replacement History of carpal tunnel release History of appendectomy H/O ovarian cystectomy Status post lumbar spine operative procedure for decompression of spinal cord H/O spinal fusion S/P cervical spinal fusion History of cholecystectomy History of left knee replacement History of left hip replacement H/O cervical spinal arthrodesis Social History Household Members: Children Household Members Other:: lives with daughter Housing: House Are you a primary pediatric acute care unit nurse to a significant other at home: No Do you presently have visiting nurse or other home services: Yes (NETWORK ARCHITECT who comes in once weekly) Alcohol intake: never Patient Tobacco Use Status: Never used Tobacco Substance Use Type: Marijuana service: No Current occupational status: retired Review of Systems Const All systems reviewed & are unremarkable except as noted in HPI and below ENT Reports Normal hearing present Neuro Reports Normal hearing present, Denies Abnormal speech present and Denies confusion Psych Denies confusion Physical Exam Vital Signs: Last Vital Signs Pulse 92 11/12/24 11:17 Resp 18 11/12/24 11:17 BP 132/83 11/12/24 11:17 Pulse Ox 96 11/12/24 11:17 Oxygen Delivery Method Room Air 11/12/24 11:17 Const General: No confusion Nutritional Appearance: average body habitus Orientation/consciousness: No confusion Limitations: no limitations HEENT Head: Yes normocephalic and Yes atraumatic Ears: hearing grossly normal bilaterally Eyes General: appearance normal, both eyes and all related structures Eyelids: Yes eyelids normal Pupils: Equal, round and reactive pupils present EOM: EOMs intact bilaterally Neck Neck: Yes normal visual inspection and Yes no JVD Resp Effort & Inspection: normal respiratory effort, able to speak in complete sentences and no audible wheezes Cardio Jugular venous distension: no JVD Back/Spine/Pelvis Other: Multiple scars very well-healed are observed in the projection of lumbar spine midline incisions. Right upper buttock there is a linear scar from implantation of the pain pump. The scar is well-healed, inflammation is not observed. Neuro General: No confusion Cranial nerves: Yes Equal, round and reactive pupils present and Yes Normal hearing present Speech: No Abnormal speech present Assessment & Plan Assessment & Plan (1) Failed back syndrome, cervical: Code(s): M96.1 - Postlaminectomy syndrome, not elsewhere classified Category: Medical (2) Chronic pain syndrome: Comment: medtronic intrathecal pump posterior right hip Code(s): G89.4 - Chronic pain syndrome Category: Medical (3) Cervical fusion syndrome: Code(s): 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 Intrathecal pump refill. THE PATIENT CAME TODAY IN THE office FOR THE CHANGE OF THE MEDICATION IN her PAIN PUMP. The name and date of were verified and informed consent was obtained for the procedure. ?The pump was interrogated and the residual amount of fluid was found to be 3.6 mL. SHE WAS POSITIONED prone on the bed AND THE AREA OF THE INTRATHECAL PUMP WAS PREPPED WITH CHLORAPREP. The fenestrated drape was sterilely applied over the area of the pump. Sterile gloves were worn and of the aspiration system was assembled containing 2 in 22 gauge noncoring needle, the needle was connected to extension tubing which was connected to the 20 cc sterile syringe. The pain pump was palpated under the skin in the patient's right buttock area. The needle was inserted through the skin and the central plug of the pain pump and fluid was aspirated. The clear fluid was going into the syringe the total amount of the fluid was 4.1 mL .. After that a new batch? of medication was obtained which was containing hydromorphone in concentration 2000 micrograms/mL mixed with baclofen 200 micro g per mL. The admixture was made in 20 cc syringe prepared by [facility] compounding pharmacy. The syringe was connected to the bacterial filter, and then connected to the extension tubing. After that the medication in the syringe was slowly instilled into the pump with aspirations at 15 and 5 cc watt.? New medication in the pain pump comprised of baclofen 400 micro g and hydromorphone 2000 micro g she will continue to receive hydromorphone 110 micro g as well as baclofen 11 micro g a day. She will be able to administer herself PTM boluses of hydromorphone 80 micro g and baclofen 16 micro g over the course of 15 minutes up to 3 applications a day 1 bolus in 4 hours with lockout duration 4 hours. She will be administered bridge bolus for the next 67 hours. During the bridge bolus she will be receiving 250 micro g of hydromorphone a day with corresponding dose of baclofen. (5) Spinal stenosis: Code(s): M48.00 - Spinal stenosis, site unspecified Category: Medical Plan Next pump refill is in the 02/17/2025 Coding Level of Care Code Est Pt Level 3 (78927) Procedure Only Diagnoses Failed back syndrome, cervical M96.1 Chronic pain syndrome G89.4 Cervical fusion syndrome Q76.1 Failed back syndrome, lumbar M96.1 Spinal stenosis M48.00
== END 2024-11-12 11:51 | disposition home or self-care (01) ==
PROVIDERS: PCP Nurse Practitioner Family; Visit Provider Anesthesiology
DX: M96.1 Postlaminectomy syndrome, not elsewhere classified (principal); G89.4 Chronic pain syndrome; Q76.1 Klippel-Feil syndrome; M48.00 Spinal stenosis, site unspecified; Z45.1 Encounter for adjustment and management of infusion pump
CPT/HCPCS: 95991; 99213

== ENCOUNTER → 2024-11-12 10:58 | Outpatient (BNVA) | payer MEDICARE, MEDICAID, SELFPAY | PROVIDERS: PCP Nurse Practitioner Family; Visit Provider Anesthesiology | DX: M96.1 Postlaminectomy syndrome, not elsewhere classified (principal); M48.00 Spinal stenosis, site unspecified; Q76.1 Klippel-Feil syndrome; G89.4 Chronic pain syndrome | CPT/HCPCS: 99212 ==

== ENCOUNTER 2025-02-17 11:10 | Outpatient (AMB) | payer MEDICARE, MEDICAID, SELFPAY ==
--- NOTE | 2025-02-17 11:11 | MHC.OFFVIS ---
Vital Signs 02/17/25 11:20 Height 5 ft 2 in Weight 133 lb BMI 24.3 BP 108/71 Blood Pressure Location Rt brachial Position Sitting Respiration 16 Pulse 97 Pulse Source Pulse Oximeter Pulse Oximetry (%) 98 Oxygen Delivery Method Room Air Intake Visit Reasons: ITDD Refill Family Services Coordinator Required: No Accompanied by: Self / Same As Patient Allergies amitriptyline Allergy (Severe, Verified 02/17/25 11:32) VIOLENCE diazepam (Valium) Allergy (Severe, Verified 02/17/25 11:32) SUICIDAL lorazepam Allergy (Severe, Verified 02/17/25 11:32) suicidal Penicillins Allergy (Severe, Verified 02/17/25 11:32) hives amoxicillin (Augmentin) Allergy (Intermediate, Verified 02/17/25 11:32) hives clavulanic acid (Augmentin) Allergy (Intermediate, Verified 02/17/25 11:32) hives meperidine (Demerol) Allergy (Intermediate, Verified 02/17/25 11:32) vomiting buprenorphine (From Belbuca) Adverse Reaction (Intermediate, Verified 02/17/25 11:32) hives bupivacaine Adverse Reaction (Verified 02/17/25 11:32) Involuntary Spasms PFSH Medical History (Updated 08/01/22 @ 13:50 by Keith Yin MD, PhD) Kidney stone Numbness Asthma Long QT syndrome Hx of aluminum poisoning Lupus Hx of gastric ulcer Depression GERD (gastroesophageal reflux disease) Failed back syndrome, cervical Chronic pain syndrome Cervical fusion syndrome Failed back syndrome, lumbar Cervical vertebral fusion Failed back syndrome, thoracic Vitamin D deficiency Hypomagnesemia Hypothyroid Hyperhidrosis ADD (attention deficit disorder) Generalized anxiety disorder Major depression Hyperlipidemia Overweight HTN (hypertension) Failed back syndrome of cervical spine Surgical History (Updated 08/28/22 @ 14:51 by Keith Yin MD, PhD) History of arthroscopy of hip History of sphincterotomy of sphincter of Oddi History of section H/O carpal tunnel repair History of total left hip replacement History of carpal tunnel release History of appendectomy H/O ovarian cystectomy Status post lumbar spine operative procedure for decompression of spinal cord H/O spinal fusion S/P cervical spinal fusion History of cholecystectomy History of left knee replacement History of left hip replacement H/O cervical spinal arthrodesis Social History Household Members: Children Household Members Other:: lives with daughter Housing: House Are you a primary neonatal intensive care nurse to a significant other at home: No Do you presently have visiting nurse or other home services: Yes (INSULATION PROFESSIONAL who comes in once weekly) Alcohol intake: never Patient Tobacco Use Status: Never used Tobacco Substance Use Type: Marijuana service: No Current occupational status: retired Physical Exam Vital Signs: Last Vital Signs Pulse 97 02/17/25 11:20 Resp 16 02/17/25 11:20 BP 108/71 02/17/25 11:20 Pulse Ox 98 02/17/25 11:20 Oxygen Delivery Method Room Air 02/17/25 11:20 BMI result Body Mass Index 24.3 Assessment & Plan Assessment & Plan (1) Failed back syndrome, cervical: Code(s): M96.1 - Postlaminectomy syndrome, not elsewhere classified Category: Medical (2) Chronic pain syndrome: Comment: medtronic intrathecal pump posterior right hip Code(s): G89.4 - Chronic pain syndrome Category: Medical (3) Cervical fusion syndrome: Code(s): 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 Intrathecal pump refill. THE PATIENT CAME TODAY IN THE office FOR THE CHANGE OF THE MEDICATION IN her PAIN PUMP. The name and date of were verified and informed consent was obtained for the procedure. ?The pump was interrogated and the residual amount of fluid was found to be 2.8 mL. SHE WAS POSITIONED prone on the bed AND THE AREA OF THE INTRATHECAL PUMP WAS PREPPED WITH CHLORAPREP. The fenestrated drape was sterilely applied over the area of the pump. Sterile gloves were worn and of the aspiration system was assembled containing 2 in 22 gauge noncoring needle, the needle was connected to extension tubing which was connected to the 20 cc sterile syringe. The pain pump was palpated under the skin in the patient's right buttock area. The needle was inserted through the skin and the central plug of the pain pump and fluid was aspirated. The clear fluid was going into the syringe the total amount of the fluid was 4.0 mL .. After that a new batch? of medication was obtained which was containing hydromorphone in concentration 2000 micrograms/mL mixed with baclofen 200 micro g per mL. The admixture was made in 20 cc syringe prepared by [facility] compounding pharmacy. The syringe was connected to the bacterial filter, and then connected to the extension tubing. After that the medication in the syringe was slowly instilled into the pump with aspirations at 15 and 5 cc watt.? New medication in the pain pump comprised of baclofen 400 micro g and hydromorphone 2000 micro g she will continue to receive hydromorphone 110 micro g as well as baclofen 11 micro g a day. She will be able to administer herself PTM boluses of hydromorphone 80 micro g and baclofen 16 micro g over the course of 15 minutes up to 3 applications a day 1 bolus in 4 hours with lockout duration 4 hours. She will be administered bridge bolus for the next 67 hours. During the bridge bolus she will be receiving 250 micro g of hydromorphone a day with corresponding dose of baclofen. (5) Spinal stenosis: Code(s): M48.00 - Spinal stenosis, site unspecified Category: Medical Plan She reports excellent pain relief, continues to enjoy better activities of daily living, better social interactions, better mobility. Next appointment will be scheduled on 05/27/2024. Coding Level of Care Code Procedure Only Diagnoses Failed back syndrome, cervical M96.1 Chronic pain syndrome G89.4 Cervical fusion syndrome Q76.1 Failed back syndrome, lumbar M96.1 Spinal stenosis M48.00
[2025-02-17 11:20] VITALS: BP 108/71; PULSE 97; RESP 16; O2SAT 98; BMI 24.3
== END 2025-02-17 11:49 | disposition home or self-care (01) ==
PROVIDERS: PCP Nurse Practitioner Family; Visit Provider Anesthesiology
DX: Z45.1 Encounter for adjustment and management of infusion pump (principal)
CPT/HCPCS: 95991

== ENCOUNTER → 2025-02-17 11:10 | Outpatient (BNVA) | payer MEDICARE, MEDICAID, SELFPAY | PROVIDERS: PCP Nurse Practitioner Family; Visit Provider Anesthesiology | DX: Z45.1 Encounter for adjustment and management of infusion pump (principal); G89.4 Chronic pain syndrome; M96.1 Postlaminectomy syndrome, not elsewhere classified; Q76.1 Klippel-Feil syndrome; M48.00 Spinal stenosis, site unspecified; Z79.891 Long term (current) use of opiate analgesic | CPT/HCPCS: 95991 ==